=== PATIENT | male | born 1965 | race Caucasian/White ===

== ENCOUNTER 2016-11-06 11:48 | Emergency (ER) | payer BC ==
[~2016-11-06] VITALS: Ht 182.9 cm; Wt 97.0 kg
[~2016-11-06 11:48] MED LIST: DICL-201 PO; OMEP40CA PO
[2016-11-06 11:51] VITALS: TEMP 36.6; Ht 182.9 cm; Wt 97.0 kg
[2016-11-06] MEDS ORDERED: XYLOCAINE 1%/SOD BICARB 20 ML VIAL INFIL ONE (12:00)
[2016-11-06] MEDS ORDERED: IBUP-103 PO (12:02)
--- NOTE | 2016-11-06 12:25 | DIAGNOSTIC IMAGING REPORT ---
LEFT TIBIA/FIBULA 2 VIEWS ROUTINE CLINICAL HISTORY: 51 years-old Male presenting with L tibia pain. TECHNIQUE: Frontal and lateral views of the left lower leg were obtained. COMPARISON: None. FINDINGS: Periosteal reaction suggested along the posterior aspect of the proximal tibial diaphysis that is not apparent on frontal view. No convincing evidence of a stress/fatigue fracture. No acute fracture or malalignment. Knee joint and ankle mortise grossly congruent. Soft tissues grossly normal. IMPRESSION: 1. No acute osseous injury. Electronically signed by: Mat Burleson M.D. 11/06/2016 12:24 PM Dictated Date/Time: 11/06/2016 12:17 PM
[2016-11-06 12:55] VITALS: BP 143/96; PULSE 53; O2SAT 96
--- NOTE | 2016-11-07 18:16 | EMERGENCY ROOM VISIT NOTE ---
ED Visit Note First contact with patient: 11:53 Chief Complaint: Left lower leg laceration. History of Present Illness: Mr. Pederson is a 51-year-old white male who ambulates into the ED complaining of left anterior lower leg laceration. 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 This occurred approximate 30 minutes prior to arrival at the hospital. Prior to coming to the hospital he control bleeding but did not wash the wound. Associated with his wound he reports he has a burning sensation in the area of the wound. He rates his discomfort 2/10. The pain is nonradiating. The pain worsens with palpation. He has not identified any alleviating factors related to the pain. He has not taken any medications for pain prior to arrival at the hospital. He denies any associated symptoms with his pain. Review of Systems: As noted above in history of present illness. Past Medical History: Unspecified ankle surgery. Current Medications: Ibuprofen. Allergies to Medications: Patient denies. Social History: Patient is currently employed; he feels safe in his home environment; he denies tobacco use and admits to social alcohol use. Tetanus Immunization Status: 2013. Physical Examination: Vital Signs: Date Time Temp Pulse Resp B/P (MAP) Pulse Ox O2 Delivery O2 Flow Rate FiO2 11/06/16 12:55 53 16 143/96 96 11/06/16 11:51 36.6 71 16 131/91 95 Room Air GENERAL: 51-year-old male in mild distress due to pain, nontoxic-appearing, afebrile and hemodynamically stable. NEUROLOGICAL: Awake, alert and oriented to person, place and time. Answering questions appropriately and following commands. Normal gait. Good hand eye coordination. No focal motor or sensory deficits. SKIN: Warm, dry and pink. Left Lower Leg: Over the anterior aspect of the mid tibial area patient has a 2.7 cm full-thickness laceration. LEFT LOWER EXTREMITY: No gross bony deformity. No tenderness in the knee or ankle. Moderate tenderness over the spine of the tibia itself bony deformity or crepitus. No active bleeding from his wound. Patient did tell me he thought he the bone was exposed and on evaluating the wound on the east seizes underlying fascia and the bone is not exposed. Patient has full range of motion in flexion and extension of the knee and plantar flexion and dorsiflexion of the ankle. Throughout the lower leg the skin was warm and pink and capillary refill was brisk. He is able to distinguish light sensations through all dermatomes of the lower leg and foot. ED Course: Patient is assessed as noted above. Patient's medication list was reviewed. Left Tibia/Fibula X-Rays: Were read by myself and the radiologist showing no acute fractures or dislocations. No soft tissue foreign bodies. Wound Repair: Complexity: Basic Verbal consent was obtained after the risks and benefits were explained. The skin was prepped with betadine and a sterile field set. Wound edges of the wound was anesthetized with 3.1 ml buffered 1% lidocaine. The wound was explored for foreign bodies and none found. Copious irrigation was performed using sterile saline. With direct pressure the bleeding subsided. Debridement was not performed. The wound edges were approximated using a multilayer closure; the subcuticular layer was closed with 2 Vicryl 6-0 simple interrupted sutures and the cutaneous layer was closed with 5 Ethilon 4-0 sutures. Hemostasis and excellent approximation was achieved. Antibacterial ointment and a sterile dressing applied. No complications and the patient tolerated the procedure well. Patient was educated about tonight's findings and instructed on his treatment plan; he verbalizes understanding and agreement with this plan. Clinical Impression: Laceration of the left lower leg. Disposition: Patient discharged home in stable condition; prior to departure he was reassessed and subjectively he was pain-free. Reported Plan: Comfort measures, wound care, and signs of infection were discussed with the patient. Patient was encouraged to follow-up with PCP or return to the ED for signs of infection and/or suture removal in 10-12 days.
== END 2016-11-06 12:58 | disposition home or self-care (01) ==
LOC: C.EDB 11:49 → C.EDD 12:58
DX: S81.812A Laceration without foreign body, left lower leg, initial encounter (principal); W22.8XXA Striking against or struck by other objects, initial encounter; Y92.007 Garden or yard of unspecified non-institutional (private) residence as the place of occurrence of the external cause

== ENCOUNTER 2018-05-06 05:26 | Observation (INO) ==
--- NOTE | 2018-05-03 14:21 | Anesthesiology Consultation ---
Date of Service May 03, 2018 Assessment & Plan (1) Encounter for pre-operative examination: Chart Review Chart Review: Acceptable Risk for Surgery and Patient NOT seen in Pre Admission Testing Consults Requested none History Surgery Operation Date: 05/06/18 07:30 Proposed Procedures p L4-L5 Laminectomy - Sree Prasad DO Height/Weight Height: 6 ft Weight: 101.984 kg Allergies Allergy/AdvReac Type Severity Reaction Status Date / Time No Known Allergies Allergy Verified 04/29/18 15:43 Medications Home Medications Medication Instructions Recorded Confirmed Last Taken aspirin, buffered 1 - 2 tab PO TID PRN 04/29/18 04/29/18 Unknown omeprazole 40 mg PO DAILY PRN 04/29/18 04/29/18 Unknown Past Medical History Medical History Lumbar spondylosis (Chronic) Lumbar disc herniation (Chronic) Bilateral sacroiliitis (Chronic) Lumbar radiculitis (Chronic) 90% improved status post L5-S1 interlaminar epidural steroid injections Olecranon bursitis (Chronic) Spasm of back muscles (Chronic) Chronic back pain GERD (gastroesophageal reflux disease) Hx of fracture of ankle right - Has had 2 surgeries on ankle Past Surgical History Surgical History History of ankle surgery right Social History Smoking Status: Never smoker Do You Dip or Chew Tobacco: No Hx Alcohol Use: No alcohol intake frequency: holidays/special occasions only Alcohol Intake Frequency Comment: 0 Hx Substance Use: No substance use type: does not use Testing Electrocardiogram Date: 04/30/18 Findings: + NSR @ (64), + RBBB (Incomplete) and + no change from (03/04/10) Other Testing MRI Lumbar Spine 08/05/17: 1. Left paracentral foraminal disc protrusion at L4-5 causing left lateral recess stenosis with impingement of left L5 traversing nerve root with associated moderate left neural foraminal stenosis at this level. This is unchanged when compared to 09/15/16 exam. 2. Moderate left neural foraminal stenosis at L5-S1. Unchanged. Laboratory Results Laboratory Tests 04/30/18 04/30/18 04/30/18 12:40 12:40 12:40 WBC 15.93 H Hgb 16.8 Hct 46.3 Plt Count 243 PT 10.3 INR 1.0 APTT 28.6 Sodium 138 Potassium 3.8 Chloride 108 H Carbon Dioxide 25 BUN 17 Creatinine 1.[address] Prasad's office was notified of increased WBC count.
--- NOTE | 2018-05-05 10:59 | History and Physical Report ---
DATE OF ADMISSION: 05/06/2018 CHIEF COMPLAINT: Back pain, lower extremity, difficulty, paresthesias, instability and a disc herniation at L4-L5. HISTORY OF PRESENT ILLNESS: Mr. Pederson is pleasant individual. He has had ongoing difficulties now for several months, even years in duration, worsening over time. We actually discussed surgery on him a year ago. We went over in detail. He agreed to the procedure. At this point in time, we are settling on a laminectomy lumbar spine L4-L5. PAST MEDICAL HISTORY: Negative for heart disease, diabetes, cancer, hypertension. All negative. PAST SURGICAL HISTORY: Ankle reconstruction. ALLERGIES: Negative. SOCIAL HISTORY: He is . Minimal alcohol, no tobacco. Active lifestyle. REVIEW OF SYSTEMS: Twelve system review is negative for fevers, sweats, chills. Ear, nose and throat negative. No chest pain, palpitations. No asthma, wheezing. No nausea, vomiting. Admits to some numbness and tingling, joint pain, stiffness, weakness and muscle cramping. No diabetes, easy bruisability or immune deficiency. MEDICATIONS: Baclofen, oxycodone. VITAL SIGNS: 6'2, 115 pounds. GENERAL: He is alert, oriented, pleasant gentleman. He has back and lower extremity difficulties. HEENT: Essentially normal. CARDIAC: Normal S1, S2, no S3. LUNGS: Clear to auscultation. No rales, rhonchi, wheezing. ABDOMEN: Soft, nontender, bowel sounds present in all quadrants. Blood pressure 130/80, pulse 80. He has 5/5 motor strength, good sensation and decreased range of motion, flexion and extension of the spine. He has no gross neurological deficit. The skin is intact. There is no adenopathy. PLAN: Includes a lumbar laminectomy at L4-L5 lumbar spine.
[2018-05-06] MEDS ORDERED: CEFAZOLIN 3000MG 65 ML IV SCH (06:00)
[2018-05-06] MEDS ORDERED: LR 15ML/HR IV SCH (06:00)
[2018-05-06] MEDS ORDERED: CEFAZOLIN 2000MG 2,000 MG/15 ML SYR IV SCH (06:00)
[2018-05-06] MEDS ORDERED: SODIUM CHLORIDE 0.9% 1,000 ML IV SCH (06:00)
[2018-05-06] MEDS ORDERED: ONDANSETRON INJ 2 MG/ML 2 ML VIAL IV PRN ×2 (06:49→10:07)
[2018-05-06] MEDS ORDERED: MoRPHine SULFATE 10 MG/ML CARP/VIAL IV PRN (06:49)
[2018-05-06] MEDS ORDERED: ePHEDrine sulfate 50 MG/ML AMP IV PRN (06:49)
[2018-05-06] MEDS ORDERED: ATROPINE SULFATE 0.1 MG/ML 10ML SYR IV PRN (06:49)
[2018-05-06] MEDS ORDERED: VANCOMYCIN HCL 1000MG/20ML VIAL ONE (06:53)
[2018-05-06] MEDS ORDERED: BACITRACIN INJ 50,000 UNIT VIAL ONE (06:53)
[2018-05-06] MEDS ORDERED: THROMBIN FOR SOLN 20000 UNIT KIT ONE (06:53)
[2018-05-06] MEDS ORDERED: GELATIN SPONGE SZ 100 ONE (06:53)
[2018-05-06] MEDS ORDERED: BUPIVACAINE/EPINEPHRINE 0.5% MPF 1:200,000 30 ML VIAL ONE (06:56)
[2018-05-06] MEDS ORDERED: ROCURONIUM BROMIDE 10 MG/ML 5 ML VIAL ONE (07:04)
[2018-05-06] MEDS ORDERED: GLYCOPYRROLATE 0.2 MG/ML VIAL ONE (07:04)
[2018-05-06] MEDS ORDERED: LIDOCAINE HCL 2% 2 ML VIAL/AMP(20MG/ML) INFIL ONE (07:04)
[2018-05-06] MEDS ORDERED: NEOSTIGMINE METHYLSULFATE 5 MG/5 ML SYR ONE (07:04)
[2018-05-06] MEDS ORDERED: ONDANSETRON INJ 2 MG/ML 2 ML VIAL ONE (07:04)
[2018-05-06] MEDS ORDERED: DEXAMETHASONE SOD INJ 4 MG/ML VIAL ONE (07:04)
[2018-05-06] MEDS ORDERED: PROPOFOL IV EMULSION 10 MG/ML 20 ML VIAL IV ONE (07:04)
[2018-05-06] MEDS ORDERED: MIDAZOLAM HCL 1 MG/ML 2ML VIAL ONE (07:05)
[2018-05-06] MEDS ORDERED: fentaNYL citrate 100 MCG/2 ML VIAL ONE (07:05)
--- NOTE | 2018-05-06 07:19 | History & Physical Bridge Note ---
Date of Service May 06, 2018 History & Physical Bridge Note I have examined the patient, reviewed the History & Physical and in the interval since the performance of the History & Physical I have noted the following changes of clinical significance: no changes noted
--- NOTE | 2018-05-06 08:36 | Post Operative Brief Note ---
Immediate Post Op Note v1 Date of Surgery May 06, 2018 Pre & Post Diagnosis Operation Date: 05/06/18 07:30 Pre-Op Diagnosis: Disc Herniation L4-L5; Spinal Stenosis L4-L5; Degenerative Disc Post-Op Diagnosis: Disc Herniation L4-L5; Spinal Stenosis L4-L5; Degenerative Disc Procedure Operation Date: 05/06/18 07:30 Actual Procedures p L4-L5 Laminectomy(Not Applicable) - Sree Prasad DO Surgeon Sree Prasad DO Sales Planning Analyst trung Estimated Blood Loss 50 Findings Consistent with Post-Op Diagnosis Drains Hemovac Drain Complications none
--- NOTE | 2018-05-06 08:40 | Fluoroscopy Report ---
LUMBAR SPINE, INTRAOPERATIVE FLUOROSCOPY HISTORY: L4-5 laminectomy. FLUOROSCOPY TIME: 3 seconds. FINDINGS: Intraoperative fluoroscopy was provided for the lumbar spine. Single fluoroscopic spot imag e of the lower lumbar spine demonstrates surgical instruments posterior to the L4-L5 level. IMPRESSION: Fluoroscopy provided for a L4-L5 laminectomy.. Electronically signed by: Jose Harley M.D. 05/06/2018 8:38 AM
[2018-05-06] MEDS: fentaNYL citrate 100 MCG/2 ML VIAL IV PRN ×3 (09:11→09:21)
[2018-05-06] MEDS ORDERED: HYDROmorphone INJ 1 MG/ML SYRINGE IV PRN ×2 (10:07)
[2018-05-06] MEDS ORDERED: OXYCODONE HCL IR 5 MG TAB (IMMEDIATE RELEASE) PO PRN ×2 (10:07)
[2018-05-06] MEDS ORDERED: MAGNESIUM HYDROXIDE SUSP 30 ML UDC PO PRN (10:07)
--- NOTE | 2018-05-06 10:10 | Anesthesiology Progress Note ---
Date of Service May 06, 2018 Anesthesia Post Procedure Vital Signs Vital Signs: Temp Pulse Pulse Resp BP Pulse Ox 05/06/18 09:40 98.1 F 54 L 18 104/63 94 05/06/18 09:30 52 L 16 116/51 L 94 05/06/18 09:20 53 L 16 148/88 H 100 05/06/18 09:10 58 L 20 137/88 100 05/06/18 09:00 57 L 20 139/93 100 05/06/18 08:50 62 20 141/93 H 100 05/06/18 08:43 98.6 F 72 20 155/95 H 100 05/06/18 06:11 98.1 F 50 L 20 122/91 97 Pain Intensity Lower Back: Pain Intensity: 4 Notes Mental Status: alert / awake / arousable and participated in evaluation Patient Amnestic to Procedure: Yes Nausea / Vomiting: adequately controlled Pain: adequately controlled Airway Patency, RR, SpO2: stable & adequate BP & HR: stable & adequate Hydration State: stable & adequate Anesthetic Complications: no major complications apparent and Pt Satisfied with anesthetic care
--- NOTE | 2018-05-06 10:15 | Operative Report ---
DATE OF OPERATION: 05/06/2018 PREOPERATIVE DIAGNOSIS: Stenosis and mild instability, L4-L5. POSTOPERATIVE DIAGNOSIS: Stenosis and mild instability, L4-L5. PROCEDURES: Include laminectomy bilaterally, L4-L5, foraminotomy, partial facetectomy, lumbar spine. SURGEON: Sree Prasad DO. MEAT APPRENTICE: José Castle PA-C. COMPLICATIONS: Zero. BLOOD LOSS: 50 mL. DESCRIPTION OF PROCEDURE: Patient was taken to the operating room. General intubated anesthetic provided to the patient. Placed prone, scrubbed, prepped and draped sterile. We made a skin incision, fascial incision. We came down on the L3-L4 interspace, went 1 inch below to the L4-L5 interspace. I did a formal decompression laminectomy, foraminotomy, took off synovitis. We decompressed each nerve root. The nerves of L4 and L5 were absolutely free of any type of pressure. We irrigated and closed in layers over Hemovac drain and vancomycin powder. Patient returned to PACU improved and stable. There were no apparent intraoperative complications. I attest to the content of the Intraoperative Record and any orders documented therein. Any exception s are noted below.
[2018-05-06] MEDS ORDERED: PANTOprazole 40 MG TAB PO PRN (10:30)
[2018-05-06] MEDS: CEFAZOLIN 2000MG 2,000 MG/15 ML SYR IV SCH ×2 (10:43→18:05)
[2018-05-06] MEDS: DOCUSATE SODIUM 100 MG CAP PO SCH ×2 (10:43→19:53)
[2018-05-06] MEDS: dexAMETHasone 6 MG in SYRINGE 0 ML IV SCH ×2 (10:43→18:05)
[2018-05-06] MEDS: ACETAMINOPHEN 1,000 MG/100 ML VIAL IV SCH ×2 (10:44→17:59)
[2018-05-06] MEDS ORDERED: Nursing to Pharmacy Communication ONE (14:29)
[2018-05-06] MEDS: SODIUM CHLORIDE 0.9% 1000ML 1,000 ML IV SCH (17:29)
[2018-05-07] MEDS: dexAMETHasone 6 MG in SYRINGE 0 ML IV SCH (02:26)
[2018-05-07] MEDS: CEFAZOLIN 2000MG 2,000 MG/15 ML SYR IV SCH (02:26)
[2018-05-07] MEDS: ACETAMINOPHEN 1,000 MG/100 ML VIAL IV SCH (02:26)
[2018-05-07] MEDS: SODIUM CHLORIDE 0.9% 1000ML 1,000 ML IV SCH (04:57)
--- NOTE | 2018-05-07 07:45 | Anesthesiology Progress Note ---
Date of Service May 07, 2018 Anesthesia Post Procedure Vital Signs Vital Signs: Temp Pulse Pulse Pulse Resp BP BP 05/07/18 06:46 36.5 C 48 L 19 127/80 05/07/18 03:20 36.5 C 51 L 16 113/74 05/06/18 23:35 36.8 C 53 L 16 133/90 05/06/18 19:15 37.3 C 51 L 18 143/84 H 05/06/18 13:43 52 L 132/86 05/06/18 13:10 56 L 64 158/94 H 136/104 H 05/06/18 13:05 61 18 178/105 H 05/06/18 12:06 61 18 144/92 H 05/06/18 11:04 72 18 143/82 H 05/06/18 10:30 62 18 144/86 H 05/06/18 10:00 36.5 C 46 L 16 118/78 05/06/18 09:40 36.7 C 54 L 18 104/63 05/06/18 09:30 52 L 16 116/51 L 05/06/18 09:20 53 L 16 148/88 H 05/06/18 09:10 58 L 20 137/88 05/06/18 09:00 57 L 20 139/93 05/06/18 08:50 62 20 141/93 H 05/06/18 08:43 37 C 72 20 155/95 H Pulse Ox 05/07/18 06:46 96 05/07/18 03:20 94 05/06/18 23:35 96 05/06/18 19:15 95 05/06/18 13:43 05/06/18 13:10 05/06/18 13:05 96 05/06/18 12:06 94 05/06/18 11:04 95 05/06/18 10:30 94 05/06/18 10:00 93 05/06/18 09:40 94 05/06/18 09:30 94 05/06/18 09:20 100 05/06/18 09:10 100 05/06/18 09:00 100 05/06/18 08:50 100 05/06/18 08:43 100 Pain Intensity Lower Back: Pain Intensity: 2 Notes Mental Status: alert / awake / arousable Patient Amnestic to Procedure: Yes Nausea / Vomiting: adequately controlled Pain: adequately controlled Airway Patency, RR, SpO2: stable & adequate BP & HR: stable & adequate Hydration State: stable & adequate Anesthetic Complications: no major complications apparent and Pt Satisfied with anesthetic care
[2018-05-07] MEDS: DOCUSATE SODIUM 100 MG CAP PO SCH (08:34)
--- NOTE | 2018-05-07 11:40 | Discharge Summary ---
HOSPITAL COURSE: He is alert, oriented, minimal complaints of pain, up, taking p.o. Vital signs stable. ASSESSMENT: Here uneventful hospital course after a laminectomy of lumbar spine. PLAN: Instructions, precautions, education provided. The patient will be discharged home later today in improved stable condition. Followup appointment also provided.
[2018-05-08] MEDS ORDERED: BISACODYL 5 MG TABEC PO PRN (06:00)
== END 2018-05-07 09:55 | disposition home or self-care (01) ==
LOC: 3E 05:26 → ASU 05:26

== ENCOUNTER 2018-07-29 03:06 | Observation (INO) ==
[2018-07-29] MEDS ORDERED: MoRPHine SULFATE 4 MG/ML 1 ML CARP\\VIAL IV STA (03:11)
[2018-07-29] MEDS ORDERED: ONDANSETRON INJ 2 MG/ML 2 ML VIAL IV STA (03:11)
--- NOTE | 2018-07-29 03:24 | Emergency Department Note ---
History of Present Illness General Chief complaint: Chest Pain Stated complaint: SEVERE CHEST PAIN STRAIGHT THROUGH TO BACK Time Seen by Provider: 07/29/18 03:11 History of Present Illness Maximum Pain Intensity: 8 This 52-year-old presents to the ER complaining of severe right-sided epigastric pain since 10 PM. Location: Epigastric right-sided chest pain Quality: Painful Severity: Moderate Duration: Started at 10 PM Timing: Started last night at 10 PM Context: Pain persisted and patient came here Modifying factors: better with nothing; worse with palpation Patient denies dyspnea, nausea, vomiting, diarrhea, leg pain or swelling, fever, flulike illness, injury to the area. Patient states he is healthy with no active medical problems. No family history of heart disease. He does not smoke. No drug use. Symptoms were not worsened with activity. Patient states he had a similar episode a few weeks ago. Patient had white vegetable pizza tonight. Home Medications Home Medications Medication Instructions Recorded Confirmed Type omeprazole 40 mg PO DAILY PRN 04/29/18 07/29/18 History hydrocodone-acetaminophen [[place]] 1 - 2 tab PO Q4H #15 tab 07/29/18 Rx naproxen sodium 220 - 440 mg PO DIRECTED PRN 07/29/18 07/29/18 History Allergies Allergy/AdvReac Type Severity Reaction Status Date / Time No Known Allergies Allergy Verified 07/29/18 03:52 Past Med/Surg History Medical History Lumbar spondylosis (Chronic) Lumbar disc herniation (Chronic) Bilateral sacroiliitis (Chronic) Lumbar radiculitis (Chronic) 90% improved status post L5-S1 interlaminar epidural steroid injections Olecranon bursitis (Chronic) Spasm of back muscles (Chronic) Chronic back pain GERD (gastroesophageal reflux disease) Hx of fracture of ankle right - Has had 2 surgeries on ankle Surgical History History of back surgery Grade 1 view Mac 3 blade History of ankle surgery right Social History Preferred Language: Pashto 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 Hand Required: No Beliefs That Will Affect Care: None marital status: Current Living Situation: Spouse Other Information That Helps Us Care for You: No Feels Safe at Home: Yes Safety Concerns: Feels Safe At This Time Smoking Status: Never smoker Hx Alcohol Use: No Hx Substance Use: No Review of Systems All systems reviewed & are unremarkable except as noted in HPI & below Physical Exam Vital Signs Vital Signs - 24 hr 07/29/18 03:13 07/29/18 03:17 07/29/18 03:21 Temperature 36.6 C Temperature Source Oral Sepsis Recent Fever Within 48 Hours No Sepsis Action Taken by Nursing No Action Required Pulse Rate 62 54 L Pulse Rate [Apical] Pulse Rate [Left Finger] Pulse Rate from SpO2 Sensor Pulse Rhythm Regular Pulse Rhythm [Apical] Pulse Rhythm [Left Finger] Pulse Strength Normal Pulse Strength [Left Finger] Respiratory Rate 18 25 H Respiratory Effort / Characteristics Non-Labored Respiratory Depth Normal Respiratory Pattern Blood Pressure 164/109 H 158/102 H Blood Pressure [Right Arm] Blood Pressure Mean 127 120 Blood Pressure Mean [Right Arm] Blood Pressure Position Lying Blood Pressure Position [Right Arm] Pulse Oximetry 99 99 99 Oxygen Delivery Method Room Air Oxygen Flow Rate 07/29/18 03:25 07/29/18 04:13 07/29/18 04:17 Temperature Temperature Source Sepsis Recent Fever Within 48 Hours Sepsis Action Taken by Nursing Pulse Rate 81 Pulse Rate [Apical] Pulse Rate [Left Finger] Pulse Rate from SpO2 Sensor Pulse Rhythm Pulse Rhythm [Apical] Pulse Rhythm [Left Finger] Pulse Strength Pulse Strength [Left Finger] Respiratory Rate 21 Respiratory Effort / Characteristics Respiratory Depth Respiratory Pattern Blood Pressure 108/79 Blood Pressure [Right Arm] Blood Pressure Mean 88 Blood Pressure Mean [Right Arm] Blood Pressure Position Blood Pressure Position [Right Arm] Pulse Oximetry 96 Oxygen Delivery Method Room Air Room Air Oxygen Flow Rate 07/29/18 04:31 07/29/18 05:01 07/29/18 05:31 Temperature Temperature Source Sepsis Recent Fever Within 48 Hours Sepsis Action Taken by Nursing Pulse Rate 71 73 71 Pulse Rate [Apical] Pulse Rate [Left Finger] Pulse Rate from SpO2 Sensor 70 73 69 Pulse Rhythm Pulse Rhythm [Apical] Pulse Rhythm [Left Finger] Pulse Strength Pulse Strength [Left Finger] Respiratory Rate 19 19 16 Respiratory Effort / Characteristics Respiratory Depth Respiratory Pattern Blood Pressure 145/98 H 162/99 H 148/99 H Blood Pressure [Right Arm] Blood Pressure Mean 113 120 115 Blood Pressure Mean [Right Arm] Blood Pressure Position Blood Pressure Position [Right Arm] Pulse Oximetry 92 94 97 Oxygen Delivery Method Oxygen Flow Rate 07/29/18 05:32 07/29/18 06:01 07/29/18 07:01 Temperature Temperature Source Sepsis Recent Fever Within 48 Hours Sepsis Action Taken by Nursing Pulse Rate 66 59 L 74 Pulse Rate [Apical] Pulse Rate [Left Finger] Pulse Rate from SpO2 Sensor 67 61 71 Pulse Rhythm Pulse Rhythm [Apical] Pulse Rhythm [Left Finger] Pulse Strength Pulse Strength [Left Finger] Respiratory Rate 13 17 16 Respiratory Effort / Characteristics Respiratory Depth Respiratory Pattern Blood Pressure 135/89 145/95 H Blood Pressure [Right Arm] Blood Pressure Mean 104 111 Blood Pressure Mean [Right Arm] Blood Pressure Position Blood Pressure Position [Right Arm] Pulse Oximetry 96 93 94 Oxygen Delivery Method Oxygen Flow Rate 07/29/18 07:40 07/29/18 11:00 07/29/18 12:51 Temperature 36.6 C 36.5 C 36.3 C L Temperature Source Oral Oral Temporal Artery Scan Sepsis Recent Fever Within 48 Hours Sepsis Action Taken by Nursing Pulse Rate Pulse Rate [Apical] 75 Pulse Rate [Left Finger] 66 59 L Pulse Rate from SpO2 Sensor Pulse Rhythm Pulse Rhythm [Apical] Regular Pulse Rhythm [Left Finger] Regular Regular Pulse Strength Pulse Strength [Left Finger] Normal Normal Respiratory Rate 18 18 20 Respiratory Effort / Characteristics Non-Labored Spontaneous Non-Labored Spontaneous Non-Labored Spontaneous Respiratory Depth Normal Normal Normal Respiratory Pattern Regular Regular Regular Blood Pressure Blood Pressure [Right Arm] 126/86 137/104 H 173/117 H Blood Pressure Mean Blood Pressure Mean [Right Arm] 99 115 135 Blood Pressure Position Blood Pressure Position [Right Arm] Sitting Sitting Lying Pulse Oximetry 96 99 95 Oxygen Delivery Method Room Air Room Air Oxymask Oxygen Flow Rate 10 07/29/18 13:00 07/29/18 13:10 07/29/18 13:20 Temperature Temperature Source Sepsis Recent Fever Within 48 Hours Sepsis Action Taken by Nursing Pulse Rate Pulse Rate [Apical] 73 64 59 L Pulse Rate [Left Finger] Pulse Rate from SpO2 Sensor Pulse Rhythm Pulse Rhythm [Apical] Regular Regular Regular Pulse Rhythm [Left Finger] Pulse Strength Pulse Strength [Left Finger] Respiratory Rate 18 26 H 18 Respiratory Effort / Characteristics Non-Labored Spontaneous Non-Labored Spontaneous Non-Labored Spontaneous Respiratory Depth Normal Normal Normal Respiratory Pattern Regular Regular Regular Blood Pressure Blood Pressure [Right Arm] 156/114 H 156/113 H 140/98 Blood Pressure Mean Blood Pressure Mean [Right Arm] 128 127 112 Blood Pressure Position Blood Pressure Position [Right Arm] Lying Lying Lying Pulse Oximetry 91 90 92 Oxygen Delivery Method Oxymask Oxymask Nasal Cannula Oxygen Flow Rate 10 10 4 07/29/18 13:30 07/29/18 13:42 07/29/18 14:00 Temperature 36.6 C 36.6 C 36.7 C Temperature Source Temporal Artery Scan Temporal Artery Scan Oral Sepsis Recent Fever Within 48 Hours Sepsis Action Taken by Nursing Pulse Rate Pulse Rate [Apical] 60 58 L Pulse Rate [Left Finger] 65 Pulse Rate from SpO2 Sensor Pulse Rhythm Pulse Rhythm [Apical] Regular Regular Pulse Rhythm [Left Finger] Regular Pulse Strength Pulse Strength [Left Finger] Normal Respiratory Rate 17 17 18 Respiratory Effort / Characteristics Non-Labored Spontaneous Non-Labored Spontaneous Non-Labored Spontaneous Respiratory Depth Normal Normal Normal Respiratory Pattern Regular Regular Regular Blood Pressure Blood Pressure [Right Arm] 133/97 138/97 156/101 H Blood Pressure Mean Blood Pressure Mean [Right Arm] 109 110 119 Blood Pressure Position Blood Pressure Position [Right Arm] Lying Lying Lying Pulse Oximetry 93 94 93 Oxygen Delivery Method Nasal Cannula Nasal Cannula Nasal Cannula Oxygen Flow Rate 4 4 3 07/29/18 14:32 07/29/18 15:00 07/29/18 15:20 Temperature 36.6 C Temperature Source Axillary Sepsis Recent Fever Within 48 Hours Sepsis Action Taken by Nursing Pulse Rate Pulse Rate [Apical] Pulse Rate [Left Finger] 70 84 Pulse Rate from SpO2 Sensor Pulse Rhythm Pulse Rhythm [Apical] Pulse Rhythm [Left Finger] Pulse Strength Pulse Strength [Left Finger] Respiratory Rate 18 18 Respiratory Effort / Characteristics Respiratory Depth Respiratory Pattern Blood Pressure Blood Pressure [Right Arm] 163/103 H 163/108 H 151/101 H Blood Pressure Mean Blood Pressure Mean [Right Arm] 123 126 117 Blood Pressure Position Blood Pressure Position [Right Arm] Lying Lying Lying Pulse Oximetry 93 93 Oxygen Delivery Method Room Air Room Air Oxygen Flow Rate 07/29/18 16:20 07/29/18 17:14 Temperature 36.6 C 36.7 C Temperature Source Oral Oral Sepsis Recent Fever Within 48 Hours Sepsis Action Taken by Nursing Pulse Rate Pulse Rate [Apical] Pulse Rate [Left Finger] 91 H 80 Pulse Rate from SpO2 Sensor Pulse Rhythm Pulse Rhythm [Apical] Pulse Rhythm [Left Finger] Pulse Strength Pulse Strength [Left Finger] Respiratory Rate 18 16 Respiratory Effort / Characteristics Respiratory Depth Respiratory Pattern Blood Pressure Blood Pressure [Right Arm] 154/98 H 138/97 Blood Pressure Mean Blood Pressure Mean [Right Arm] 116 110 Blood Pressure Position Blood Pressure Position [Right Arm] Sitting Sitting Pulse Oximetry 91 93 Oxygen Delivery Method Room Air Room Air Oxygen Flow Rate VITALS: Vitals are noted on the nurse's note and reviewed by myself. Vital signs stable. GENERAL: Pleasant male who appears in pain, in no acute distress, nondiaphoretic, well-developed well-nourished. SKIN: The skin was without rashes, erythema, edema, or bruising. There is no tenting of the skin. Capillary reflex less than 2 seconds. HEAD: Normocephalic atraumatic. EARS: External auditory canals clear, tympanic membranes pearly saunders without erythema or effusion bilaterally. EYES: Pupils equal round and reactive to light and accommodation. Conjunctivae without injection, sclerae without icterus. Extraocular movements intact. NOSE: Patent, turbinates without inflammation or discharge. MOUTH: Mucous membranes moist. Pharynx without erythema or exudate. Uvula midline. Airway patent. Tongue does not deviate. NECK: Supple without nuchal rigidity. No lymphadenopathy. No thyromegaly. Cervical spine is nontender. No JVD. HEART: Regular rate and rhythm without murmurs gallops or rubs. LUNGS: Clear to auscultation bilaterally without wheezes, rales or rhonchi. No retractions or accessory muscle use. ABDOMEN: Positive bowel sounds x 4. Normal tympanic percussion. Soft, tender to palpation right upper quadrant, without masses or organomegaly. Frazier sign positive. No guarding or rebound tenderness. No CVA tenderness MUSCULOSKELETAL: No muscle atrophy, erythema, or edema noted. NEURO: Patient was alert and oriented to person place and time. Normal sensation to light and sharp touch. No focal neurological deficits. Course Administered Medications Hydromorphone HCl (Dilaudid) 1 mg IV Q2H PRN PRN Reason: Pain Stop: 08/12/18 14:17 Last Admin: 07/29/18 15:10 Dose: 1 mg Documented by: [id number] Ceftriaxone Sodium 1,000 mg/ (Dextrose) 60 mls @ 100 mls/hr IV DAILY@0900 [facility] Stop: 08/08/18 09:29 Last Infusion: 07/29/18 10:43 Dose: 0 mls/hr Documented by: [id number] Admin: 07/29/18 10:00 Dose: 100 mls/hr Documented by: [id number] Potassium Chloride/Sodium Chloride (Normal Saline W/20 Meq Kcl) 20 meq in 1,000 mls @ 100 mls/hr IV .Q10H KE[facility] Stop: 08/28/18 09:29 Last Admin: 07/29/18 10:00 Dose: 100 mls/hr Documented by: [id number] Ketorolac Tromethamine (Toradol) 30 mg IV Q6H PRN PRN Reason: Pain Stop: 08/03/18 19:59 Last Admin: 07/29/18 21:07 Dose: 30 mg Documented by: [id number] Discontinued Medications Al Hydrox/Mg Hydrox/Simethicone () 1 dose PO ONE ONE Stop: 07/29/18 03:44 Last Admin: 07/29/18 04:16 Dose: 1 dose Documented by: [id number] Bupivacaine HCl (Marcaine 0.5% Mpf) Confirm Administered Dose 30 ml .ROUTE .STK-MED ONE Stop: 07/29/18 11:17 Last Admin: 07/29/18 12:38 Dose: 20 ml Documented by: [id number] Fentanyl Citrate (Fentanyl Citrate) 25 mcg IV Q5M PRN PRN Reason: PACU Use Only-Pain Stop: 07/29/18 15:58 Last Admin: 07/29/18 13:21 Dose: 25 mcg Documented by: [id number] Admin: 07/29/18 13:16 Dose: 25 mcg Documented by: [id number] Admin: 07/29/18 13:11 Dose: 25 mcg Documented by: [id number] Admin: 07/29/18 13:06 Dose: 25 mcg Documented by: [id number] Hydromorphone HCl (Dilaudid) 1 mg IV Q15M PRN PRN Reason: Pain Stop: 08/12/18 04:18 Last Admin: 07/29/18 05:10 Dose: 1 mg Documented by: [id number] Admin: 07/29/18 04:23 Dose: 1 mg Documented by: [id number] Hydromorphone HCl (Dilaudid) Confirm Administered Dose 1 mg .ROUTE .STK-MED ONE Stop: 07/29/18 04:20 Last Admin: 07/29/18 04:23 Dose: Not Given Documented by: [id number] Pantoprazole Sodium 40 mg/ (Syringe) 10 mls @ 5 mls/min IV DAILY@1100 [facility] Stop: 08/28/18 10:59 Last Admin: 07/29/18 10:00 Dose: 5 mls/min Documented by: [id number] Iothalamate Meglumine ([place] 60%) Confirm Administered Dose 50 ml .ROUTE .STK- MED ONE Stop: 07/29/18 11:17 Last Admin: 07/29/18 12:37 Dose: Not Given Documented by: [id number] Ketorolac Tromethamine (Toradol) 30 mg IV NOW ONE Stop: 07/29/18 14:19 Last Admin: 07/29/18 15:05 Dose: 30 mg Documented by: [id number] Ketorolac Tromethamine (Toradol) 30 mg IV NOW ONE Stop: 07/29/18 14:54 Last Admin: 07/29/18 16:27 Dose: Not Given Documented by: [id number] Labetalol HCl (Normodyne) 5 mg IV Q5M PRN PRN Reason: PACU Use-SBP>160 or DBP>100 Stop: 07/29/18 15:58 Last Admin: 07/29/18 13:11 Dose: 5 mg Documented by: [id number] Cosigned by: [id number] Morphine Sulfate (Morphine Sulfate) 4 mg IV NOW STA Stop: 07/29/18 03:12 Last Admin: 07/29/18 03:27 Dose: 4 mg Documented by: [id number] Ondansetron HCl (Zofran) 4 mg IV NOW STA Stop: 07/29/18 03:12 Last Admin: 07/29/18 03:25 Dose: 4 mg Documented by: [id number] Medical Decision Making Medical Records Attestation: I reviewed the patient's medical records. Home Medications Current Medication List: was personally reviewed by me Laboratory Data Attestation: I reviewed the patient's lab results. Result diagrams: 07/29/18 03:22 07/29/18 03:22 Lab Results 07/29/18 07/29/18 07/29/18 Range/Units 03:22 03:22 03:22 WBC 12.91 H (4.8-10.8) K/uL RBC 5.39 (4.7-6.1) M/uL Hgb 17.5 (14.0-18.0) g/dL Hct 48.7 (42-52) % MCV 90.4 (80-100) fL MCH 32.5 (25-34) pg MCHC 35.9 (32-36) g/dL RDW Std Deviation 42.5 (36.4-46.3) fL RDW Coeff of Kaylynn 13.1 (11.5-14.5) % Plt Count 247 (130-400) K/uL MPV 9.9 (7.4-10.4) fL Immature Gran % (Auto) 0.3 % Neut % (Auto) 70.5 % Lymph % (Auto) 19.2 % [place] % (Auto) 8.4 % Eos % (Auto) 1.1 % Baso % (Auto) 0.5 % Immature Gran # (Auto) 0.04 H (0.00-0.02) K/uL Neut # (Auto) 9.11 H (1.4-6.5) K/uL Lymph # (Auto) 2.48 (1.2-3.4) K/uL [place] # (Auto) 1.08 H (0.11-0.59) K/uL Eos # (Auto) 0.14 (0-0.5) K/uL Baso # (Auto) 0.06 (0-0.2) K/uL Sodium 141 (136-145) mmol/L Potassium 3.7 (3.5-5.1) mmol/L Chloride 107 (98-107) mmol/L Carbon Dioxide 27 (21-32) mmol/L Anion Gap 7.0 (3-11) BUN 24 H (7-18) mg/dl Creatinine 1.11 (0.6-1.4) mg/dl Est Cr Clr Drug Dosing Not Reportable Est GFR ( Amer) 86.8 Est GFR (Non-Af Amer) 74.9 BUN/Creatinine Ratio 21.3 H (10-20) Glucose 97 (70-99) mg/dl Calcium 9.5 (8.5-10.1) mg/dl Total Bilirubin 0.7 (0.2-1) mg/dl AST 22 (15-37) U/L ALT 48 (12-78) U/L Alkaline Phosphatase 115 (45-117) U/L POC Troponin I < 0.03 (0-0.045) ng/ml Troponin I < 0.015 (0-0.045) ng/ml Total Protein 7.7 (6.4-8.2) gm/dl Albumin 4.2 (3.4-5.0) gm/dl Globulin 3.5 (2.5-4.0) gm/dl Albumin/Globulin Ratio 1.2 (0.9-2) Lipase 190 (73-393) U/L Imaging Data Attestation: I personally reviewed and interpreted this imaging study as follows: MDM Narrative Prior records/ancillary studies reviewed. Triage Nursing notes reviewed. Additional history obtained from family. The patient's history was concerning for epigastric right upper quadrant chest pain. Differential diagnosis: Etiologies such as cardiac ischemia, biliary, aortic dissection, pulmonary embolism, pneumonia, pneumothorax, musculoskeletal, infections, pericarditis, myocarditis, esophageal rupture, gastrointestinal, as well as others were entertained. Physical examination: As above. ER treatment provided: Morphine and Zofran IV On reassessment the patient felt better. Diagnostic interpretation by me: The electrocardiogram was normal sinus, incomplete right bundle branch block, no acute ST-T changes, rate of 61. Impression normal sinus rhythm with incomplete right bundle branch block and read by myself. EKG compared to prior EKG with no acute changes noted. I think arrhythmia is unlikely. EKG shows normal sinus rhythm with no interval abnormalities such as QT prolongation or WPW. There are no findings to suggest Brugada syndrome. Cardiac monitoring in the emergency department reveals no tachycardic or bradycardic dysrhythmia. Hypertrophic cardiomyopathy was considered but there are no clear historical elements pointing toward this. EKG is not suggestive. The QRS voltage is not extremely large and there are no sugge stive Q waves. The labs revealed leukocytosis. Negative troponin Imaging studies: Chest x-ray with no acute consolidation, pneumothorax or free air, elevated right hemidiaphragm per my interpretation US RUQ: Echogenic liver suggesting steatosis. Hypoechoic region in the right hepatic lobe, nonspecific, possibly focal fatty sparing. No gallbladder wall thickening or pericholecystic fluid. Gallbladder sludge. No stones visualized. No biliary dilatation. CBD measures 3.9 mm. Right kidney cysts, largest 4.3 cm in the upper pole. No hydronephrosis. Radiologist: Butch David M.D. HEART SCORE: Hx: high/mod/low suspicion: 0 ECG: ST depression/nonspecific changes/normal: 0 Age: Greater than 65/45-64/less than 45: 1 Risk factors: (Hypertension, hyperlipidemia, diabetes, coronary disease, tobacco use, cocaine use): 0 Troponin: Greater than 2 times normal limits/1-2 times normal limits/normal: 0 Total: 1 Consultation: A consultation was placed with the surgeon, Dr. Bird and recommends medical admission and HIDA scan. He will evaluate the patient later today in consultation. Hospitalist was consultedt. The case was discussed and diagnostics were reviewed. The patient was evaluated in the ER for further treatment. Exam and history seem consistent with biliary colic. Patient still moderate amount of pain. Surgery medicine was consulted. Patient will be evaluated for possible admission. Heart score is low. Patient had 2 normal unchanged EKGs. Negative troponin. Exam and history seem most consistent with biliary colic in etiology. By the evaluation outlined above emergent etiologies such as cardiac ischemia, aortic dissection, pulmonary embolism, pneumonia, pneumothorax, pericarditis, myocarditis, gastrointestinal, as well as others were deemed relatively unlikely. The pt informed about the findings as listed above. All questions were answered and pleased with the treatment. Case reviewed with my attending The chart was completed utilizing [employer] Speech voice recognition software. Grammatical errors, random word insertions, pronoun errors, and incomplete sentences are an occassional consequence of this system due to software limitat ions, ambient noise, and hardware issues. Any formal questions or concerns about the content, text, or information contained within the body of this dictation should be directly addressed to the physician triage assistant for clarification. Impression & Plan Biliary colic, Chest pain, Intractable abdominal pain Discharge Plan Visit Data *Final* Discharge Date/Time: 07/29/18 07:28 Chief Complaint: Chest Pain Stated Complaint: SEVERE CHEST PAIN STRAIGHT THROUGH TO BACK ED Provider: Danni Carty ED Midlevel Provider: Anita Badillo Discharge Problem: Biliary colic, Chest pain, Intractable abdominal pain Patient Disposition: Admitted As Inpatient Condition: Good Discharge Instructions Interventions: ED Discharge Assessment Last Done: 07/29/18 07:28
[2018-07-29 03:33] LABS: Basophils # (auto) 0.06 K/uL (0-0.2); Basophils % (auto) 0.5 %; Eosinophils # (auto) 0.14 K/uL (0-0.5); Eosinophils % (auto) 1.1 %; Hematocrit (blood only) 48.7 % (42-52); Hemoglobin 17.5 g/dL (14.0-18.0); Immature Granulocytes # (auto) 0.04 K/uL (0.00-0.02); Immature Granulocytes % (auto) 0.3 %; Lymphocytes # (auto) 2.48 K/uL (1.2-3.4); Lymphocytes % (auto) 19.2 %; Mean Corpuscular Hgb Conc 35.9 g/dL (32-36); Mean Corpuscular Volume 90.4 fL (80-100); Mean Platelet Volume 9.9 fL (7.4-10.4); Monocytes # (auto) 1.08 K/uL (0.11-0.59); Monocytes % (auto) 8.4 %; Neutrophils # (auto) 9.11 K/uL (1.4-6.5); Neutrophils % (auto) 70.5 %; Platelet Count 247 K/uL (130-400); RDW Coefficient of Variation 13.1 % (11.5-14.5); RDW Standard Deviation 42.5 fL (36.4-46.3); Red Blood Count 5.39 M/uL (4.7-6.1); White Blood Count 12.91 K/uL (4.8-10.8)
[2018-07-29] MEDS ORDERED: GI COCKTAIL ED USE PO ONE (03:43)
[2018-07-29 03:50] LABS: Alanine Aminotransferase 48 U/L (12-78); Albumin Level 4.2 gm/dl (3.4-5.0); Aspartate Aminotransferase 22 U/L (15-37); BUN Creatinine Ratio 21.3 (10-20); Blood Urea Nitrogen 24 mg/dl (7-18); Calcium 9.5 mg/dl (8.5-10.1); Carbon Dioxide 27 mmol/L (21-32); Chloride 107 mmol/L (98-107); Est GFR (African American) 86.8; Est GFR (Non-African American) 74.9; Glucose 97 mg/dl (70-99); Potassium 3.7 mmol/L (3.5-5.1); Sodium 141 mmol/L (136-145)
[2018-07-29 03:55] LABS: Albumin Globulin Ratio 1.2 (0.9-2); Alkaline Phosphatase 115 U/L (45-117); Bilirubin,Total 0.7 mg/dl (0.2-1); Globulin 3.5 gm/dl (2.5-4.0); Total Protein 7.7 gm/dl (6.4-8.2); Troponin I < 0.015 ng/ml (0-0.045)
[2018-07-29] MEDS ORDERED: HYDROmorphone INJ 1 MG/ML SYRINGE ONE (04:19)
[2018-07-29] MEDS: HYDROmorphone INJ 1 MG/ML SYRINGE IV PRN ×2 (04:23→05:10)
--- NOTE | 2018-07-29 06:51 | History & Physical Report ---
Date of Service July 29, 2018 Assessment & Plan (1) Biliary colic: Biliary colic-- [facility] NPO NSS + KCl 20 mEq at 100 mils per hour. Order NM HIDA scan EF Ceftriaxone 1 g IV daily. Pantoprazole 40 mg IV daily. Zofran 4 mg IV every 6 hours as needed. Acetaminophen thousand milligrams IV every 8 hours as needed mild pain or temperature. Morphine sulfate 4 mg IV every 3 hours as needed severe pain. Serial CBC with differential, chemistry profile and magnesium levels. Consult general surgery. Present on Admission?: Yes (2) GERD (gastroesophageal reflux disease): Change omeprazole orally to pantoprazole IV. Present on Admission?: Yes History of Present Illness Chief Complaint: The patient presents to the emergency department with complaint of epigastric area and right upper quadrant discomfort that awoke him from sleep. Primary Care Provider: Liya Jaquez PA-C The patient is a 52-year-old male with a past medical history primarily of GERD, who presents emergency department after being awoken from sleep by epigastric pain along with right upper quadrant pain. He did have an episode about 1/2 weeks ago, and he describes reflux type symptoms abdominal bloating and intermittent nausea over the past year and a half. He did undergo an EGD which was negative. Allergies Allergy/AdvReac Type Severity Reaction Status Date / Time No Known Allergies Allergy Verified 07/29/18 03:52 Home Medications Home Medications Medication Instructions Recorded Confirmed Type omeprazole 40 mg PO DAILY PRN 04/29/18 07/29/18 History naproxen sodium 220 - 440 mg PO DIRECTED PRN 07/29/18 07/29/18 History Past Med/Surg History Medical History Lumbar spondylosis (Chronic) Lumbar disc herniation (Chronic) Bilateral sacroiliitis (Chronic) Lumbar radiculitis (Chronic) 90% improved status post L5-S1 interlaminar epidural steroid injections Olecranon bursitis (Chronic) Spasm of back muscles (Chronic) Chronic back pain GERD (gastroesophageal reflux disease) Hx of fracture of ankle right - Has had 2 surgeries on ankle Surgical History History of ankle surgery right Social History Communication Ability: Effective Beliefs That Will Affect Care: None marital status: Current Living Situation: Spouse Feels Safe at Home: Yes Smoking Status: Unknown if ever smoked Hx Alcohol Use: Yes Hx Substance Use: No Review of Systems The patient denies chest pain, palpitations, shortness of breath, dyspnea on exertion, cough, lower extremity swelling, sore throat, fevers, chills, sweats, vomiting, diarrhea , constipation, pelvic pain, blood in urine or stool, dysuria, urinary frequency or urgency, lightheadedness, dizziness, headache, memory loss, loss of consciousness, rash, abnormal bruising or bleeding, imbalance, focal or generalized weakness, numbness or tingling in arms or legs, generalized arthralgias or myalgiaa, neck pain, or night sweats. The review of systems is otherwise negative other than for that already noted above, and at least 10 systems have been reviewed. Physical Exam Vital Signs (Past 24 Hours): Last Vital Signs Temp 36.6 C 07/29/18 03:13 Pulse 59 L 07/29/18 06:01 Resp 17 07/29/18 06:01 BP 135/89 07/29/18 06:01 Pulse Ox 93 07/29/18 06:01 Physical Exam: The patient is awake, alert and oriented 3, well developed and well nourished, normocephalic and atraumatic, lying in bed and in no acute distress. HEENT--PERRL, EOMI, mucous membranes and oropharynx normal. Neck--supple. No JVD. No bruits. Thyroid normal, trachea midline, no adenopathy. Heart--normal S1 and S2. No murmurs, rubs or gallops. Lungs--clear bilaterally, no respiratory distress, no accessory muscle use. Abdomen--normal bowel sounds and soft. Mild tenderness epigastric right upper quadrant. Nondistended. Extremities--no cyanosis or clubbing. No edema. There are good distal pulses b/l. Dermatologic--normal skin turgor, normal color, no abnormal lymph nodes, no rash. Neurologic--cranial nerves II through XII grossly intact. Rheumatologic--normal range of motion. Psychiatric--normal affect. Results & Data Laboratory Results Laboratory Results WBC 12.91 K/uL (4.8-10.8) H 07/29/18 03:22 RBC 5.39 M/uL (4.7-6.1) 07/29/18 03:22 Hgb 17.5 g/dL (14.0-18.0) 07/29/18 03:22 Hct 48.7 % (42-52) 07/29/18 03:22 MCV 90.4 fL (80-100) 07/29/18 03:22 MCH 32.5 pg (25-34) 07/29/18 03:22 MCHC 35.9 g/dL (32-36) 07/29/18 03:22 RDW Std Deviation 42.5 fL (36.4-46.3) 07/29/18 03:22 RDW Coeff of Kaylynn 13.1 % (11.5-14.5) 07/29/18 03:22 Plt Count 247 K/uL (130-400) 07/29/18 03:22 MPV 9.9 fL (7.4-10.4) 07/29/18 03:22 Immature Gran % (Auto) 0.3 % 07/29/18 03:22 Neut % (Auto) 70.5 % 07/29/18 03:22 Lymph % (Auto) 19.2 % 07/29/18 03:22 Holt % (Auto) 8.4 % 07/29/18 03:22 Eos % (Auto) 1.1 % 07/29/18 03:22 Baso % (Auto) 0.5 % 07/29/18 03:22 Immature Gran # (Auto) 0.04 K/uL (0.00-0.02) H 07/29/18 03:22 Neut # (Auto) 9.11 K/uL (1.4-6.5) H 07/29/18 03:22 Lymph # (Auto) 2.48 K/uL (1.2-3.4) 07/29/18 03:22 Holt # (Auto) 1.08 K/uL (0.11-0.59) H 07/29/18 03:22 Eos # (Auto) 0.14 K/uL (0-0.5) 07/29/18 03:22 Baso # (Auto) 0.06 K/uL (0-0.2) 07/29/18 03:22 Sodium 141 mmol/L (136-145) 07/29/18 03:22 Potassium 3.7 mmol/L (3.5-5.1) 07/29/18 03:22 Chloride 107 mmol/L (98-107) 07/29/18 03:22 Carbon Dioxide 27 mmol/L (21-32) 07/29/18 03:22 Anion Gap 7.0 (3-11) 07/29/18 03:22 BUN 24 mg/dl (7-18) H 07/29/18 03:22 Creatinine 1.11 mg/dl (0.6-1.4) 07/29/18 03:22 Est Cr Clr Drug Dosing Not Reportable 07/29/18 03:22 Est GFR ( Amer) 86.8 07/29/18 03:22 Est GFR (Non-Af Amer) 74.9 07/29/18 03:22 BUN/Creatinine Ratio 21.3 (10-20) H 07/29/18 03:22 Glucose 97 mg/dl (70-99) 07/29/18 03:22 Calcium 9.5 mg/dl (8.5-10.1) 07/29/18 03:22 Total Bilirubin 0.7 mg/dl (0.2-1) 07/29/18 03:22 AST 22 U/L (15-37) 07/29/18 03:22 ALT 48 U/L (12-78) 07/29/18 03:22 Alkaline Phosphatase 115 U/L (45-117) 07/29/18 03:22 POC Troponin I < 0.03 ng/ml (0-0.045) 07/29/18 03:22 Troponin I < 0.015 ng/ml (0-0.045) 07/29/18 03:22 Total Protein 7.7 gm/dl (6.4-8.2) 07/29/18 03:22 Albumin 4.2 gm/dl (3.4-5.0) 07/29/18 03:22 Globulin 3.5 gm/dl (2.5-4.0) 07/29/18 03:22 Albumin/Globulin Ratio 1.2 (0.9-2) 07/29/18 03:22 Lipase 190 U/L (73-393) 07/29/18 03:22 Diagnostic Findings Ultrasound right upper quadrant shows biliary sludge Code Status & VTE Plan Code Status Full code VTE Prophylaxis Plan VTE Prophylaxis will be ordered: Yes
--- NOTE | 2018-07-29 07:16 | Ultrasound Report ---
US gallbladder CLINICAL HISTORY: 52 years-old Male presenting with ruq pain. TECHNIQUE: Real-time grayscale and limited color Doppler ultrasound imaging of the abdomen limited to the right upper quadrant was performed. COMPARISON: CT from 07/04/2015. FINDINGS: Image quality is degraded by patient body habitus and bowel gas limiting sonographic penetration and adequate sonographic windows. This mildly negatively affects diagnostic sensitivity the exam. Pancreas: Visualized portions of the pancreatic head and body normal. Liver: Hyperechogenic parenchyma with heterogeneous echotexture, likely indicating fibrosis or steato sis. The liver measures 14.6 cm in maximal sagittal dimension. No sonographic evidence of hepatic mas s. Main portal vein patent with normal directional flow. Biliary: No intrahepatic biliary ductal dilatation. Common bile duct measures up to 4 mm in diameter. Gallbladder: Gallbladder sludge suggested with a conglomerate nonshadowing focus of mild hyperechogen icity near the gallbladder neck. Nondependent sludge also evident. The gallbladder is distended possi leo on a physiologic basis. No evidence of gallstones, significant gallbladder wall thickening, or pe richolecystic fluid or inflammatory change. Unable to assess sonographic Frazier's sign. Right kidney: No hydronephrosis. Several renal cysts suggested the largest at the upper pole measurin g 4.3 cm. Ascites: None. Other: None. IMPRESSION: 1. Gallbladder sludge without evidence of cholelithiasis or biliary ductal dilatation. Distention of the gallbladder may be on a physiologic basis. If there is continuing clinical concern, nuclear medi cine HIDA scan could be obtained. 2. Hyperechogenicity of the hepatic parenchyma suggests underlying steatosis or fibrosis. 3. Right renal cysts. Electronically signed by: Mat Burleson M.D. 07/29/2018 7:15 AM
[2018-07-29] MEDS ORDERED: MoRPHine SULFATE 4 MG/ML 1 ML CARP\\VIAL IV PRN ×2 (07:52→14:03)
[2018-07-29] MEDS ORDERED: ONDANSETRON INJ 2 MG/ML 2 ML VIAL IV PRN ×2 (07:52→10:57)
[2018-07-29] MEDS ORDERED: ACETAMINOPHEN 1000 MG/100 ML IV IV PRN (07:52)
--- NOTE | 2018-07-29 07:55 | XRay Report ---
XR chest 1V portable CLINICAL HISTORY: 52 years-old Male presenting with Chest Pain. TECHNIQUE: Portable upright AP view of the chest was obtained. COMPARISON: None. FINDINGS: Cardiomediastinal silhouette normal. No focal opacity. No large effusion or pneumothorax. Osseous str uctures normal. Upper abdomen normal. IMPRESSION: 1. No acute cardiopulmonary disease. Electronically signed by: Mat Burleson M.D. 07/29/2018 7:54 AM
[2018-07-29] MEDS: NSS + 20MEQ KCL 20 MEQ/1,000 ML BAG IV SCH ×2 (10:00→22:39)
[2018-07-29] MEDS: cefTRIAXone SODIUM 1,000 MG in DEXTROSE 5% 50 ML IV SCH (10:00)
--- NOTE | 2018-07-29 10:56 | Anesthesiology Consultation ---
Date of Service July 29, 2018 Assessment & Plan (1) Encounter for pre-operative examination: Chart Review Chart Review: Acceptable Risk for Surgery and Patient NOT seen in Pre Admission Testing Consults Requested none NPO Date Last Intake of Fluids: 07/29/18 Time Last Intake of Fluids: 02:00 Last Intake of Fluids Comment: sip of water with pills and ice chips at 0400 Date Last Intake of Solids: 07/28/18 Time Last Intake of Solids: 20:30 History Surgery Operation Date: 07/29/18 13:55 Proposed Procedures p Laparoscopic Cholecystectomy with Possible Cholangiogram - Jorge Bird, , FACS Height/Weight Height: 6 ft Weight: 104 kg Allergies Allergy/AdvReac Type Severity Reaction Status Date / Time No Known Allergies Allergy Verified 07/29/18 03:52 Medications Home Medications Medication Instructions Recorded Confirmed Last Taken omeprazole 40 mg PO DAILY PRN 04/29/18 07/29/18 Unknown naproxen sodium 220 - 440 mg PO DIRECTED PRN 07/29/18 07/29/18 Unknown Active Medications Generic Name Dose Route Start Last Admin Trade Name Freq PRN Reason Stop Dose Admin Ceftriaxone Sodium 1,000 mg/ 60 mls @ 100 mls/hr 07/29/18 09:30 07/29/18 10 :43 Dextrose IV 08/08/18 09:29 Infused DAILY@0900 KELL Infusion Potassium Chloride/Sodium Chloride 20 meq in 1,000 mls @ 100 mls/hr 07/29/18 09:30 07/29/18 10:00 Normal Saline W/20 Meq Kcl IV 08/28/18 09:29 100 mls/hr .Q10H KELL Administration Pantoprazole Sodium 40 mg/ 10 mls @ 5 mls/min 07/29/18 11:00 07/29/18 10:00 Syringe IV 08/28/18 10:59 5 mls/min DAILY@1100 KELL Administration Past Medical History Medical History Lumbar spondylosis (Chronic) Lumbar disc herniation (Chronic) Bilateral sacroiliitis (Chronic) Lumbar radiculitis (Chronic) 90% improved status post L5-S1 interlaminar epidural steroid injections Olecranon bursitis (Chronic) Spasm of back muscles (Chronic) Chronic back pain GERD (gastroesophageal reflux disease) Hx of fracture of ankle right - Has had 2 surgeries on ankle Past Surgical History Surgical History History of back surgery Grade 1 view Mac 3 blade History of ankle surgery right Social History Smoking Status: Never smoker Do You Dip or Chew Tobacco: No Hx Alcohol Use: No alcohol intake frequency: holidays/special occasions only Hx Substance Use: No Physical Exam Vital Signs Last Vital Signs Temp 36.6 C 07/29/18 07:40 Pulse 66 07/29/18 07:40 Resp 18 07/29/18 07:40 BP 126/86 07/29/18 07:40 Pulse Ox 96 07/29/18 07:40 Testing Electrocardiogram Date: 07/29/18 Findings: + NSR @ (61) and + RBBB Chest X-Ray Date: 07/29/18 Findings: + NAD Laboratory Results 07/29/18 03:22 07/29/18 03:22
[2018-07-29] MEDS ORDERED: ePHEDrine sulfate 50 MG/ML AMP IV PRN (10:57)
[2018-07-29] MEDS ORDERED: ATROPINE SULFATE 0.1 MG/ML 10ML SYR IV PRN (10:57)
[2018-07-29] MEDS ORDERED: LABETALOL HCL IV 5 MG/ML 20ML IV PRN (10:57)
[2018-07-29] MEDS ORDERED: MEPERIDINE HCL 25 MG/ML CARP IV PRN (10:57)
[2018-07-29] MEDS ORDERED: PHENYLEPHRINE 100MCG/ML 5ML SYR IV PRN (10:57)
[2018-07-29] MEDS ORDERED: HYDROmorphone INJ 1 MG/ML SYRINGE IV PRN ×2 (10:57→14:18)
[2018-07-29] MEDS ORDERED: PANTOprazole 40 MG in SYRINGE 0 ML IV SCH (11:00)
[2018-07-29] MEDS ORDERED: fentaNYL citrate 100 MCG/2 ML VIAL ONE ×3 (11:08→12:29)
[2018-07-29] MEDS ORDERED: MIDAZOLAM HCL 1 MG/ML 2ML VIAL ONE (11:08)
--- NOTE | 2018-07-29 11:12 | Surgery Consultation ---
Date of Consultation July 29, 2018 Assessment & Plan (1) Biliary colic: Acute/chronic cholecystitis. Symptoms and exam are consistent with cholecystitis, will cancel HIDA and proceed with laparoscopic cholecystectomy. Supervising Physician Co-Signing Physician Notes Patient seen and examined, labs and imaging reviewed, agree with above. 52-year-old male with epigastric and chest pain after eating pizza last night. He has had a few episodes like this in the past. The pain radiates to his back. He had an ultrasound performed in the emergency department that showed a distended gallbladder, no pericholecystic fluid or gallbladder wall thickening, some sludge but no stones, no bile duct dilatation. He was admitted to the medicine service with plans for HIDA scan today. However after examination and discussion of his symptoms with our physician's family and divorce legal assistant, it was felt that this was likely his gallbladder and he is now plan for cholecystectomy. Plan for laparoscopic cholecystectomy with possible cholangiogram The risk of the procedure were discussed to include but are not limited to bleeding, infection, damage to surrounding structures including common bile duct, retained stone, need for future [place] of surgery, bile leak, failure to treat symptoms, and the risk of anesthesia Antibiotics preop Diagnosis, details of procedure and recovery, and plan of care discussed the patient, HER answer, the patient expressed understanding agrees the plan of care as stated. History of Present Illness Attending Physician: Chase Oglesby MD History of Present Illness 52 y/o male with second episode of epigastric/RUQ pain in 10 days. Began overnight several hours after eating broccoli pizza. Pain radiates around right side to his back. Came to the ED this morning for persistent pain. Had nausea during ultrasound. Has had bloating, discomfort for some time he thought was related to his reflux. Had negative EGD about 18 mos ago, takes occasional omeprazole. Allergies Allergy/AdvReac Type Severity Reaction Status Date / Time No Known Allergies Allergy Verified 07/29/18 03:52 Home Medications Home Medications Medication Instructions Recorded Confirmed Type omeprazole 40 mg PO DAILY PRN 04/29/18 07/29/18 History naproxen sodium 220 - 440 mg PO DIRECTED PRN 07/29/18 07/29/18 History Patient History Medical History Lumbar spondylosis (Chronic) Lumbar disc herniation (Chronic) Bilateral sacroiliitis (Chronic) Lumbar radiculitis (Chronic) 90% improved status post L5-S1 interlaminar epidural steroid injections Olecranon bursitis (Chronic) Spasm of back muscles (Chronic) Chronic back pain GERD (gastroesophageal reflux disease) Hx of fracture of ankle right - Has had 2 surgeries on ankle Surgical History History of back surgery Grade 1 view Mac 3 blade History of ankle surgery right Social History Preferred Language: Monegasque Communication Ability: Effective Nurse Special Required: No Beliefs That Will Affect Care: None marital status: Current Living Situation: Spouse Other Information That Helps Us Care for You: No Feels Safe at Home: Yes Safety Concerns: Feels Safe At This Time Smoking Status: Never smoker Hx Alcohol Use: No Hx Substance Use: No Review of Systems Constitutional: no fever and no chills Gastrointestinal: + abdominal pain, + bloating and + nausea Physical Exam Vital Signs (Past 24 Hours): Last Vital Signs Temp 36.6 C 07/29/18 07:40 Pulse 66 07/29/18 07:40 Resp 18 07/29/18 07:40 BP 126/86 07/29/18 07:40 Pulse Ox 96 07/29/18 07:40 Constitutional: WD/WN, vitals as above Respiratory: normal respiratory effort, lungs clear to auscultation Cardiovascular: RRR, no murmur, no edema Gastrointestinal (Abdomen): Inspection/Auscultation: abdomen not distended Percussion/Palpation: + abdomen tender (RUQ) and abdomen soft
[2018-07-29] MEDS ORDERED: BUPIVACAINE 0.5 % 5 MG/1 ML MPF 30ML VIAL ONE (11:16)
[2018-07-29] MEDS ORDERED: CONRAY 60% 50 ML VIAL ONE (11:16)
[2018-07-29] MEDS ORDERED: PROPOFOL IV EMULSION 10 MG/ML 20 ML VIAL IV ONE (12:29)
[2018-07-29] MEDS ORDERED: NEOSTIGMINE METHYLSULFATE 5 MG/5 ML SYR ONE (12:29)
[2018-07-29] MEDS ORDERED: ROCURONIUM BROMIDE 10 MG/ML 5 ML VIAL ONE (12:29)
[2018-07-29] MEDS ORDERED: LIDOCAINE HCL 2% 2 ML VIAL/AMP(20MG/ML) INFIL ONE (12:29)
[2018-07-29] MEDS ORDERED: DEXAMETHASONE SOD INJ 4 MG/ML VIAL ONE (12:29)
[2018-07-29] MEDS ORDERED: GLYCOPYRROLATE 0.2 MG/ML VIAL ONE (12:29)
[2018-07-29] MEDS ORDERED: ONDANSETRON INJ 2 MG/ML 2 ML VIAL ONE (12:29)
--- NOTE | 2018-07-29 12:40 | Operative Report ---
Post Operative Report Pre & Post Diagnosis Operation Date: 07/29/18 13:55 Pre-Op Diagnosis: Acute Cholecystitis Postop diagnosis: Acute calculus cholecystitis Procedure Operation Date: 07/29/18 13:55 Actual Procedures p Laparoscopic Cholecystectomy - Jorge Bird DO, RUBY Surgeon Jorge Bird DO, RUBY Mixer Whipped Topping Carlos Guallpa Estimated Blood Loss 4 Findings Consistent with Post-Op Diagnosis Gallbladder distended and moderately inflamed. Critical view of safety obtained. Cystic duct and artery doubly clipped and divided Specimens Called Anesthesia Type General Complications none Disposition Accompanied Patient To Recovery: No Disposition: Recovery Room Indications 52-year-old male presented to the emergency department overnight with right upper quadrant abdominal pain after eating pizza. Right upper quadrant ultrasound showed distended gallbladder but no pericholecystic fluid, no gallbladder wall thickening, sludge but no stones. Plan for laparoscopic cholecystectomy possible cholangiogram. The risks of the procedure were discussed, all questions were answered, and the patient agreed to proceed with surgery as planned. Description of Procedure The patient was properly identified, consented, and taken to the operating room where he was placed in the supine position. General endotracheal anesthesia was induced. SCDs and a safety belt were placed. Preoperative antibiotics were administered. The patient's abdomen was prepped and draped in the standard sterile fashion. A surgical timeout was performed and all parties were in agreement that this was the correct patient and procedure to be performed and we continued as planned. An incision was made superior and to the left of the umbilicus overlying the rectus muscle and the Veress needle was inserted. Saline drop test confirmed entry into the peritoneum. The abdomen was insufflated with carbon dioxide which the patient tolerated without incident. The abdomen was then entered using the Optiview technique and a 5 mm trocar. The laparoscope was inserted and no damage from initial trocar or Veress needle placement was noted, no gross abnormalities were noted within the 4 quadrants of the abdomen. An 11 mm port was placed in the subxiphoid position and two 5 mm ports were then placed in the right subcostal position. The patient was placed in reverse Trendelenburg posit ion and rotated towards the left. The gallbladder was distended and moderately inflamed. The dome of the gallbladder was retracted towards the left upper quadrant and the infundibulum was retracted toward the right lower quadrant revealing Calot's triangle. Peritoneal attachments were taken down with electrocautery and blunt dissection. The cystic duct and artery were circumferentially dissected. A window of safety was obtained showing the cystic duct entering the gallbladder with no aberrant structures noted. The cystic duct and artery were doubly clipped and divided. The gallbladder was then lifted off the gallbladder fossa with electrocautery. The gallbladder tore near the fibula and a small amount of sludge and stones were spilled. These were suctioned and removed. The gallbladder was placed in an Endo Catch bag and removed through the subxiphoid port site. The right upper quadrant was irrigated and hemostasis was found to be good. 5 mm trochars were removed under direct visualization and the abdomen was allowed to collapse. The subxiphoid port site fascia was closed with 0 Vicryl suture. The wound was irrigated, and the skin of all ports was closed with 4-0 Monocryl subcuticular sutures. Dermabond was placed over the wounds. The patient was extubated in the operating room and taken to the PACU where he recovered without apparent incident. All sponge, instrument and needle counts were correct at the conclusion of the procedure. The patient tolerated the procedure well. The physician's mail handler assistant was present and scrubbed for the entirety of the case and was essential in positioning the patient, prepping and draping, retraction and exposure, driving the laparoscope, removal of the gallbladder, closure the incisions, and placement of the dressings. I attest to the content of the Intraoperative Record and any orders documented therein. Any exceptions are noted below.
[2018-07-29] MEDS: fentaNYL citrate 100 MCG/2 ML VIAL IV PRN ×4 (13:06→13:21)
--- NOTE | 2018-07-29 13:49 | Anesthesiology Progress Note ---
Date of Service July 29, 2018 Anesthesia Post Procedure Vital Signs Vital Signs: Temp Pulse Pulse Pulse Resp BP BP 07/29/18 13:42 36.6 C 58 L 17 138/97 07/29/18 13:30 36.6 C 60 17 133/97 07/29/18 13:20 59 L 18 140/98 07/29/18 13:10 64 26 H 156/113 H 07/29/18 13:00 73 18 156/114 H 07/29/18 12:51 36.3 C L 75 20 173/117 H 07/29/18 11:00 36.5 C 59 L 18 137/104 H 07/29/18 07:40 36.6 C 66 18 126/86 07/29/18 07:01 74 16 145/95 H 07/29/18 06:01 59 L 17 135/89 07/29/18 05:32 66 13 07/29/18 05:31 71 16 148/99 H 07/29/18 05:01 73 19 162/99 H 07/29/18 04:31 71 19 145/98 H 07/29/18 04:17 81 21 108/79 07/29/18 03:21 54 L 25 H 158/102 H 07/29/18 03:17 07/29/18 03:13 36.6 C 62 18 164/109 H Pulse Ox 07/29/18 13:42 94 07/29/18 13:30 93 07/29/18 13:20 92 07/29/18 13:10 90 07/29/18 13:00 91 07/29/18 12:51 95 07/29/18 11:00 99 07/29/18 07:40 96 07/29/18 07:01 94 07/29/18 06:01 93 07/29/18 05:32 96 07/29/18 05:31 97 07/29/18 05:01 94 07/29/18 04:31 92 07/29/18 04:17 96 07/29/18 03:21 99 07/29/18 03:17 99 07/29/18 03:13 99 Pain Intensity Abdomen: Pain Intensity: 2 Notes Mental Status: alert / awake / arousable Patient Amnestic to Procedure: Yes Nausea / Vomiting: adequately controlled Pain: adequately controlled Airway Patency, RR, SpO2: stable & adequate BP & HR: stable & adequate Hydration State: stable & adequate Anesthetic Complications: no major complications apparent and Pt Satisfied with anesthetic care
[2018-07-29] MEDS ORDERED: OXYCODONE/ACETAMINOPHEN 5mg/325mg TAB PO PRN (14:03)
[2018-07-29] MEDS ORDERED: KETOROLAC 30 MG/ML VIAL IV ONE ×2 (14:18→14:53)
--- NOTE | 2018-07-29 20:00 | Hospitalist Progress Note ---
Date of Service July 29, 2018 Assessment & Plan (1) Biliary colic: Medically stable postop, but pain is uncontrolled. Surgery has just ordered an escalation of his pain meds, will allow this time to work. Continue supportive care otherwise. (2) GERD (gastroesophageal reflux disease): Subjective Seen in follow-up from early a.m. admit. Pain uncontrolled postop. Surgery has just entered new orders for pain control. Physical Exam Vital Signs (Past 24 Hours): Last Vital Signs Temp 36.7 C 07/29/18 17:14 Pulse 80 07/29/18 17:14 Resp 16 07/29/18 17:14 BP 138/97 07/29/18 17:14 Pulse Ox 93 07/29/18 17:14 Physical Exam: He appears uncomfortable due to postoperative pain, breathing is unlabored. She has no pallor or icterus.
[2018-07-29] MEDS: KETOROLAC 30 MG/ML VIAL IV PRN (21:07)
[2018-07-30] MEDS: NSS + 20MEQ KCL 20 MEQ/1,000 ML BAG IV SCH ×2 (04:55→04:57)
[2018-07-30] MEDS: KETOROLAC 30 MG/ML VIAL IV PRN (06:46)
[2018-07-30 07:20] LABS: Hematocrit (blood only) 42.9 % (42-52); Hemoglobin 15.1 g/dL (14.0-18.0); Mean Corpuscular Hgb Conc 35.2 g/dL (32-36); Mean Corpuscular Volume 90.5 fL (80-100); Mean Platelet Volume 10.3 fL (7.4-10.4); Platelet Count 197 K/uL (130-400); RDW Coefficient of Variation 12.9 % (11.5-14.5); RDW Standard Deviation 42.9 fL (36.4-46.3); Red Blood Count 4.74 M/uL (4.7-6.1); White Blood Count 20.42 K/uL (4.8-10.8)
[2018-07-30 07:25] LABS: INR 1.1 (0.9-1.1); Partial Thromboplastin Time 26.5 Seconds (21.0-31.0); Prothrombin Time 11.4 Seconds (9.0-12.0)
[2018-07-30 07:32] LABS: Basophils # (auto) 0.01 K/uL (0-0.2); Immature Granulocytes # (auto) 0.07 K/uL (0.00-0.02); Immature Granulocytes % (auto) 0.3 %; Lymphocytes # (auto) 1.08 K/uL (1.2-3.4); Lymphocytes % (auto) 5.3 %; Monocytes # (auto) 1.52 K/uL (0.11-0.59); Monocytes % (auto) 7.4 %; Neutrophils # (auto) 17.74 K/uL (1.4-6.5)
[2018-07-30 07:46] LABS: Albumin Level 3.3 gm/dl (3.4-5.0); BUN Creatinine Ratio 16.1 (10-20); Bilirubin,Total 1.2 mg/dl (0.2-1); Creatinine Clr Calc Pharmacy 108.6 ml/min; Est GFR (African American) 102.2; Est GFR (Non-African American) 88.1; Globulin 3.3 gm/dl (2.5-4.0); Potassium 4.1 mmol/L (3.5-5.1); Total Protein 6.6 gm/dl (6.4-8.2)
--- NOTE | 2018-07-30 07:56 | Hospitalist Progress Note ---
Date of Service July 30, 2018 Assessment & Plan (1) Biliary colic: Medically stable postop, but pain is uncontrolled. Surgery has just ordered an escalation of his pain meds, will allow this time to work. Continue supportive care otherwise. (2) GERD (gastroesophageal reflux disease): Change omeprazole orally to pantoprazole IV. Physical Exam Vital Signs (Past 24 Hours): Last Vital Signs Temp 36.8 C 07/30/18 03:57 Pulse 62 07/30/18 03:57 Resp 16 07/30/18 03:57 BP 124/77 07/30/18 03:57 Pulse Ox 92 07/30/18 03:57
--- NOTE | 2018-07-30 08:29 | Surgery Progress Note ---
Date of Service July 30, 2018 Assessment & Plan (1) Biliary colic: POD 1 lap gia ok for d/c if tolerates diet Subjective feeling better, tolerating full liquids Physical Exam Vital Signs (Past 24 Hours): Last Vital Signs Temp 36.8 C 07/30/18 08:10 Pulse 64 07/30/18 08:10 Resp 18 07/30/18 08:10 BP 136/92 07/30/18 08:10 Pulse Ox 92 07/30/18 03:57 Gastrointestinal (Abdomen): Inspection/Auscultation: + abdominal surgical incision (clean, dry) Percussion/Palpation: abdomen soft
[2018-07-30] MEDS: cefTRIAXone SODIUM 1,000 MG in DEXTROSE 5% 50 ML IV SCH (08:33)
--- NOTE | 2018-07-30 15:14 | Discharge Summary ---
Date of Service July 30, 2018 Admission HPI Per Admitting Provider The patient is a 52-year-old male with a past medical history primarily of GERD, who presents emergency department after being awoken from sleep by epigastric pain along with right upper quadrant pain. He did have an episode about 1/2 weeks ago, and he describes reflux type symptoms abdominal bloating and intermittent nausea over the past year and a half. He did undergo an EGD which was negative. Principal Diagnosis cholecystectomy Discharge Exam Constitutional well developed and average body habitus Eyes no conjunctival abnormality and no scleral abnormality Neck normal visual inspection and trachea midline Respiratory normal respiratory effort; no respiratory distress Auscultation: lungs clear to auscultation bilaterally Cardiovascular RRR, no murmur, no edema Gastrointestinal (Abdomen) Inspection/Auscultation: abdomen normal to inspection and + abdomen distended Percussion/Palpation: + abdomen tender and abdomen soft Musculoskeletal no cyanosis or clubbing, extremities motor strength 5/5 Discharge Data Allergies Allergy/AdvReac Type Severity Reaction Status Date / Time No Known Allergies Allergy Verified 07/29/18 03:52 Consultations 07/29/18 05:38 ED Decision to Admit Stat 07/29/18 07:52 Consult Case Management - Discharge Planning Routine Consult General Surgery Routine Procedures Performed Operation Date: 07/29/18 13:55 Actual Procedures p Laparoscopic Cholecystectomy - Jorge Bird DO, FACS Ordered Studies 07/29/18 03:11 gallbladder Urgent Hospital Course (1) Biliary colic: Medically stable postop, onlyusing tylenol for pain, pt does not think he will need home opiates but surgery has ordered (2) GERD (gastroesophageal reflux disease): omeprazole Total Time Total Time Spent Total Time Spent (In Minutes): greater than 30 minutes were required to prepare discharge Discharge Plan Discharge Items Patient Disposition: Home - Self-Care Reason For Visit: BILIARY COLIC Discharge Diagnosis: laparoscopic cholecystectomy Condition: Good Discharge Goals: Decrease discomfort Activity: Per 'Additional Instructions' section Lifting: No more than 10 pounds Bathing Comment: ok to shower Driving/Machine Use: Resume 3 days after discharge Non-emergency contact: Surgeon Call non-emergency contact if: you have any medication questions, your pain is not controlled, you have a fever and your temperature is above 101.5 Follow-up/Referrals: Jorge Bird DO, FACS [Physician] - (Call to make an appt in 2 weeks) Liya Jaquez PA-C [Primary Care Provider] - Diet: Regular Addtl Provider Instructions: Prescriptions: New hydrocodone-acetaminophen [[place]] 5-325 mg tablet 1 - 2 tab PO Q4H Qty: 15 RF: 0 Continued omeprazole 40 mg Capsule,Delayed Release(Dr/Ec) 40 mg PO DAILY PRN (Reason: Acid Reflux) RF: 0 naproxen sodium 220 mg Tablet 220 - 440 mg PO DIRECTED PRN (Reason: Pain) RF: 0 Stand-Alone Forms: Call Back Authorization, [facility] Discharge Orders: Discharge Order (Routine); Ordered 07/30/18 Ordered By: Angel Resendez Admission Data Admit Date/Time: 07/29/18 06:41 Attending Provider: Angel Resendez Admit Provider: Chase Oglesby Primary Care Provider: Liya Jaquez Other Providers: Chase Oglesby ; Jorge Bird Service: Medical Other Interventions: Discharge Summary Assessment (RN) Last Done: 07/30/18 11:37 DC Date/Time DO NOT enter until pt leaves facility: 07/30/18 12:00
== END 2018-07-30 12:00 | disposition home or self-care (01) ==
LOC: 3N 03:06 → ED 03:06 → SUATTDRO 06:41 → 3N 07:28

== ENCOUNTER 2019-12-28 20:50 | Observation (INO) ==
--- OUTSIDE RECORDS SUMMARY | 2019-12-28 20:52 | External Medical Summary | Continuity of Care Document ---
:1965 Author Name Russell Cintron, Provider Address Unavailable Unavailable , Care Team Providers Name Role Phone Jorge Bird DO Unavailable [email or web address] Liya Jaquez Unavailable Unavailable Unavailable Unavailable Unavailable Assessments Assessed Problems:Aftercare following surgery Problems Aftercare following surgery (V58.89) (Z48.89) Allergies and Adverse Reactions No Known Drug Allergies (Allergy) Medications No Reported Medications Refills: 0 Procedures History of Cholecystectomy Laparoscopic Status: Completed 29-Jul-2018 0:00 History of Ankle Surgery Status: Complet ed History of Ankle Repair Status: Complete d History of Lumbar Vertebral Fusion Statu s: Completed Immunizations Immunizations not documented Plan of Treatment Planned Observations Planned Goals not documented Results No Known Results Results not documented Encounters Appointment; Jorge Bird DO 12-Aug-2018 10:00 Encounter Diagnosis: Problem not documented
--- OUTSIDE RECORDS SUMMARY | 2019-12-28 20:52 | External Medical Summary | Continuity of Care Document ---
:1965 Author Name Russell Cintron, Provider Address Unavailable Unavailable , Care Team Providers Name Role Phone Jorge Bird DO Unavailable [email or web address] Liya Jaquez Unavailable Unavailable Unavailable Unavailable Unavailable [...]
[2019-12-28] MEDS ORDERED: MoRPHine SULFATE 2 MG/ML CARP IV STA (21:31)
[2019-12-28] MEDS ORDERED: FAMOTIDINE 20MG/5ML IV PUSH IV STA (21:31)
[2019-12-28] MEDS ORDERED: KETOROLAC TROMETHAMINE 15 MG/ML VIAL IV STA (21:31)
[2019-12-28] MEDS ORDERED: ONDANSETRON INJ 2 MG/ML 2 ML VIAL IV STA (21:32)
[2019-12-28] MEDS ORDERED: SODIUM CHLORIDE 0.9% 500 ML IV SCH (21:45)
--- NOTE | 2019-12-28 21:54 | Emergency Department Note ---
Impression & Plan Precordial chest pain, Elevated troponin ED Provider Note NAME: DONALDO FLANAGAN AGE: 54 SEX: M : 1965 ARRIVES VIA: Walk-In INFORMANT: [Patient][family] ED PROVIDER(S): [Hector Beltre MD] CHIEF COMPLAINT: Chest pain HISTORY OF PRESENT ILLNESS: The patient is a 54-year-old male presents the ER with around 3.5 hours of central chest pain radiating to the back. The pain came on at rest. The pain has been quite severe at a 7/10. The patient does feel somewhat nauseated and had some dry heaves. There is no shortness of breath. The patient has not had cough or cold or congestion. He felt fine earlier in the day. The patient tried some baking soda which did not help his symptoms. He has no history of coronary disease. He does have some reflux from time to time but nothing this severe. The patient states that this feels similar to when he had his ga llbladder removed although not as severe. He feels worse lying flat, better sitting forward. REVIEW OF SYSTEMS: See HPI for pertinent positives and negatives. A total of ten systems were reviewed and were otherwise negative. PMHx/PSHx: See Below SOCIAL HISTORY: See Below. PHYSICAL EXAM: GENERAL: Patient is in mild distress from pain HEENT: No acute trauma, normocephalic atraumatic, mucous membranes moist, no nasal congestion, no scleral icterus. NECK: No stridor, no adenopathy, no meningismus, trachea is midline. LUNGS: Clear to auscultation bilaterally, no wheeze, no rhonchi, breath sounds equal. HEART: Without murmurs gallops or rubs, regular rate and rhythm. Chest: Tender across the anterior chest wall. ABDOMEN: Soft, mildly tender in the epigastrium, bowel sounds positive, no hernias, no peritonitis. EXTREMITIES: No cyanosis or edema, full range of motion of all the joints without pain or difficulty, no signs for acute trauma. NEUROLOGIC: Oriented x 3, no acute motor or sensory deficits, no focal weakness. SKIN: No rash, no jaundice, no diaphoresis. DIFFERENTIAL DIAGNOSIS: Cardiac ischemia, aortic dissection, pulmonary embolism, pneumothorax, pneumonia, pericarditis, myocarditis, esophageal rupture, GERD, cholecystitis, pancreatitis, musculoskeletal, as well as other pathologies. EMERGENCY DEPARTMENT COURSE/PROCEDURES: ECG: Indication was chest pain. The ECG shows a normal sinus rhythm with a rate of 65. The QTc is 428. There is no ST elevation, no PVCs. Continuous Cardiac Monitoring: An order was placed for continuous cardiac monitoring. The monitor shows a rate of 68 with normal sinus rhythm. MEDICAL DECISION MAKING: There was no leukocytosis or concerning anemia. No significant electrolyte abnormality. D-dimer testing was negative. With a negative d-dimer, the risk for PE was certainly felt to be less. There was no significant electrolyte abnormality or kidney failure. No liver enzyme elevation. Lipase was normal making pancreatitis less likely. ECG shows a sinus rhythm, no acute ischemia. Cardiac enzyme testing x1 was slightly elevated. This elevation could be consistent with cardiac strain or injury. Chest x-ray did not show mediastinal widening, pneumonia or pneumothorax. Chest CT does not show any PE, no evidence for aortic dissection. No lung pathology. The patient received IV Pepcid, IV morphine, IV Toradol and IV Zofran. He was given IV saline, he was given oral aspirin. Patient does feel improved but is still having some occasional chest discomfort. At this point, the cause for his symptoms is unclear. His pain may be gastrointestinal in origin, with the troponin elevation, a cardiac etiology is a possibility. Further work-up is warranted. I did speak to the patient and case management. The on-call hospitalist was consulted. Past Med/Surg History Medical History Bilateral sacroiliitis Chronic back pain GERD (gastroesophageal reflux disease) Hx of fracture of ankle right - Has had 2 surgeries on ankle Lumbar disc herniation Lumbar radiculitis 90% improved status post L5-S1 interlaminar epidural steroid injections Lumbar spondylosis Olecranon bursitis Spasm of back muscles Surgical History History of ankle surgery right History of back surgery Grade 1 view Mac 3 blade Social History Smoking Status: Never smoker Second Hand Exposure: No; Hx Alcohol Use: No Hx Substance Use: No Preferred Language: Guyanese Communication Ability: Effective Visual Impairment: No Limitations Jig Filler Required: No Beliefs That Will Affect Care: None marital status: Current Living Situation: Spouse Feels Safe at Home: Yes Allergies Allergies Allergy/AdvReac Type Severity Reaction Status Date / Time acetaminophen [From Vicodin] AdvReac Severe BOWLES, Verified 12/28/19 23:02 GI-UPSET hydrocodone [From Vicodin] AdvReac Severe BOWLES, Verified 12/28/19 23:02 GI-UPSET Home Meds Home Medications Medication Instructions Recorded Confirmed calcium carbonate [Tums] 400 mg PO BID PRN 12/28/19 12/28/19 ibuprofen [Advil] 400 mg PO BID PRN 12/28/19 12/28/19 omeprazole magnesium [Prilosec OTC] 20 mg PO DAILY PRN 12/28/19 12/28/19 Results & Data (ED) Vital Signs Vital Signs - 24 hr 12/28/19 20:50 12/28/19 21:31 12/28/19 23:41 Temperature 36.6 C Temperature Source Oral Pulse Rate 68 Pulse Rate [Apical] 58 L Respiratory Rate 18 18 Respiratory Effort / Characteristics Non-Labored Non-Labored Respiratory Depth Normal Normal Blood Pressure 154/100 H Blood Pressure [Right Arm] 162/97 H Blood Pressure Mean 118 Blood Pressure Mean [Right Arm] 118 Pulse Oximetry 98 98 Oxygen Delivery Method Room Air Room Air Room Air Sepsis Recent Fever Within 48 Hours No Sepsis New/Unexplained Change in Mental Status No Sepsis Action Taken by Nursing No Action Required Home Medications Current Medication List: was personally reviewed by me Laboratory Data Attestation: I reviewed the patient's lab results. Result diagrams: 12/28/19 21:43 12/28/19 21:43 Lab Results 12/28/19 12/28/19 12/28/19 Range/Units 21:43 21:43 21:43 WBC 8.57 (4.8-10.8) K/uL RBC 5.19 (4.7-6.1) M/uL Hgb 16.7 (14.0-18.0) g/dL Hct 46.8 (42-52) % MCV 90.2 (80-100) fL MCH 32.2 (25-34) pg MCHC 35.7 (32-36) g/dL RDW Std Deviation 42.5 (36.4-46.3) fL RDW Coeff of Kaylynn 12.9 (11.5-14.5) % Plt Count 252 (130-400) K/uL MPV 9.9 (7.4-10.4) fL Immature Gran % (Auto) 0.1 % Neut % (Auto) 73.5 % Lymph % (Auto) 18.7 % [place] % (Auto) 6.3 % Eos % (Auto) 0.9 % Baso % (Auto) 0.5 % Neut # (Auto) 6.30 (1.4-6.5) K/uL Lymph # (Auto) 1.60 (1.2-3.4) K/uL [place] # (Auto) 0.54 (0.11-0.59) K/uL Eos # (Auto) 0.08 (0-0.5) K/uL Baso # (Auto) 0.04 (0-0.2) K/uL Immature Gran # (Auto) 0.01 (0.00-0.02) K/uL PT 10.3 (9.0-12.0) Seconds INR 1.0 (0.9-1.1) APTT 28.7 (21.0-31.0) Seconds PTT Ratio 1.0 D-Dimer 350 (0-500) ug/L FEU Sodium 145 (136-145) mmol/L Potassium 3.7 (3.5-5.1) mmol/L Chloride 108 H (98-107) mmol/L Carbon Dioxide 31 (21-32) mmol/L Anion Gap 6.0 (3-11) BUN 16 (7-18) mg/dl Creatinine 1.11 (0.6-1.4) mg/dl Est Cr Clr Drug Dosing Not Reportable Est GFR ( Amer) 85.6 Est GFR (Non-Af Amer) 73.8 BUN/Creatinine Ratio 14.6 (10-20) Glucose 102 H (70-99) mg/dl Calcium 9.2 (8.5-10.1) mg/dl Total Bilirubin 0.5 (0.2-1) mg/dl AST 27 (15-37) U/L ALT 53 (12-78) U/L Alkaline Phosphatase 108 (45-117) U/L Troponin I 0.064 H* (0-0.045) ng/ml Total Protein 7.6 (6.4-8.2) gm/dl Albumin 3.9 (3.4-5.0) gm/dl Globulin 3.7 (2.5-4.0) gm/dl Albumin/Globulin Ratio 1.1 (0.9-2) Lipase 150 (73-393) U/L Administered Medications Discontinued Medications Aspirin (Aspirin Chew 324 Mg) 324 mg PO NOW STA Stop: 12/28/19 23:20 Last Admin: 12/28/19 23:28 Dose: 324 mg Documented by: [id number] Famotidine (Famotidine 20mg/5ml Iv Push) 20 mg IV ONE STA Stop: 12/28/19 21:32 Last Admin: 12/28/19 21:43 Dose: 20 mg Documented by: [id number] Sodium Chloride (Nss) 500 mls @ 999 mls/hr IV .Q31M KELL Stop: 12/28/19 22:15 Last Infusion: 12/28/19 22:31 Dose: 0 mls/hr Documented by: [id number] Admin: 12/28/19 21:43 Dose: 999 mls/hr Documented by: [id number] Ioversol (Optiray 320 125ml) 118 ml IV ONCE ONE Stop: 12/28/19 22:55 Last Admin: 12/28/19 22:55 Dose: 1 ml Documented by: [id number] Ketorolac Tromethamine (Ketorolac Tromethamine 15 Mg/Ml Vial) 15 mg IV NOW STA Stop: 12/28/19 21:32 Last Admin: 12/28/19 21:43 Dose: 15 mg Documented by: [id number] Morphine Sulfate (Morphine Sulfate 2 Mg/Ml Carp) 2 mg IV NOW STA Stop: 12/28/19 21:32 Last Admin: 12/28/19 21:43 Dose: 2 mg Documented by: [id number] Ondansetron HCl (Ondansetron Inj 2 Mg/Ml 2 Ml Vial) 4 mg IV NOW STA Stop: 12/28/19 21:33 Last Admin: 12/28/19 21:43 Dose: 4 mg Documented by: [id number] Imaging Data Attestation: I personally reviewed and interpreted this imaging study as follows: My Impression: Chest x-ray: There is no mediastinal widening, no pneumothorax or CHF. I see no free air. Radiologist's Impression: CTA of chest: There was no acute pulmonary embolus. There was a normal caliber of the aorta without dissection. There was an unremarkable appearance of the heart. There was no lung consolidation, no interstitial edema, pneumothorax or pleural effusion. The osseous structures and soft tissues appeared unremarkable. Blood Pressure Blood Pressure Findings: Elevated blood pressure Blood Pressure Disposition: further management by hospitalist Discharge Plan Visit Data Chief Complaint: Chest Pain Stated Complaint: CHEST PAIN, FEELS LIKE STABBING ED Provider: Hector Beltre Discharge Problem: Precordial chest pain, Elevated troponin Patient Disposition: Admitted As Inpatient Condition: Fair Forms Stand Alone Forms: [facility] Prescriptions Prescriptions: No Action calcium carbonate [Tums] 200 mg calcium (500 mg) Tablet,Chewable 400 mg PO BID PRN (Reason: Heartburn) RF: 0 ibuprofen [Advil] 200 mg Tablet 400 mg PO BID PRN (Reason: Pain) RF: 0 omeprazole magnesium [Prilosec OTC] 20 mg Tablet,Delayed Release (Dr/Ec) 20 mg PO DAILY PRN (Reason: Acid Reflux) RF: 0 Referrals Referrals: Liya Jaquez PA-C [Primary Care Provider] -
[2019-12-28 22:09] LABS: Basophils # (auto) 0.04 K/uL (0-0.2); Basophils % (auto) 0.5 %; Eosinophils # (auto) 0.08 K/uL (0-0.5); Eosinophils % (auto) 0.9 %; Hematocrit (blood only) 46.8 % (42-52); Hemoglobin 16.7 g/dL (14.0-18.0); Immature Granulocytes # (auto) 0.01 K/uL (0.00-0.02); Immature Granulocytes % (auto) 0.1 %; Lymphocytes % (auto) 18.7 %; Mean Corpuscular Hemoglobin 32.2 pg (25-34); Mean Corpuscular Hgb Conc 35.7 g/dL (32-36); Mean Corpuscular Volume 90.2 fL (80-100); Mean Platelet Volume 9.9 fL (7.4-10.4); Monocytes # (auto) 0.54 K/uL (0.11-0.59); Monocytes % (auto) 6.3 %; Neutrophils % (auto) 73.5 %; Platelet Count 252 K/uL (130-400); RDW Coefficient of Variation 12.9 % (11.5-14.5); RDW Standard Deviation 42.5 fL (36.4-46.3); Red Blood Count 5.19 M/uL (4.7-6.1); White Blood Count 8.57 K/uL (4.8-10.8)
[2019-12-28 22:14] LABS: D Dimer 350 ug/L FEU (0-500); Partial Thromboplastin Time 28.7 Seconds (21.0-31.0); Prothrombin Time 10.3 Seconds (9.0-12.0)
[2019-12-28 22:19] LABS: Alanine Aminotransferase 53 U/L (12-78); Albumin Level 3.9 gm/dl (3.4-5.0); Aspartate Aminotransferase 27 U/L (15-37); BUN Creatinine Ratio 14.6 (10-20); Blood Urea Nitrogen 16 mg/dl (7-18); Calcium 9.2 mg/dl (8.5-10.1); Carbon Dioxide 31 mmol/L (21-32); Chloride 108 mmol/L (98-107); Est GFR (African American) 85.6; Est GFR (Non-African American) 73.8; Glucose 102 mg/dl (70-99); Lipase 150 U/L (73-393); Potassium 3.7 mmol/L (3.5-5.1); Sodium 145 mmol/L (136-145)
[2019-12-28 22:33] LABS: Albumin Globulin Ratio 1.1 (0.9-2); Alkaline Phosphatase 108 U/L (45-117); Bilirubin,Total 0.5 mg/dl (0.2-1); Globulin 3.7 gm/dl (2.5-4.0); Total Protein 7.6 gm/dl (6.4-8.2); Troponin I 0.064 ng/ml (0-0.045)
[2019-12-28] MEDS ORDERED: OPTIRAY 320 125ml IV ONE (22:54)
[2019-12-28] MEDS ORDERED: ASPIRIN CHEW 324 MG PO STA (23:19)
--- NOTE | 2019-12-29 00:05 | History & Physical Report ---
Date of Service December 29, 2019 Assessment & Plan (1) Precordial chest pain: Precordial chest pain with elevated troponin- The patient will be admitted to telemetry for serial cardiac enzymes, serial EKG's, cardiac rhythm monitoring and a 2-D echocardiogram with Dopplers. Normal EKG He was given aspirin 324 mg in the ED. Aspirin 81 mg daily. Placed on Nitropaste 1 inch anterior chest wall every 6 hours Consult cardiology. Present on Admission?: Yes (2) Elevated troponin: See above Present on Admission?: Yes (3) GERD (gastroesophageal reflux disease): Patient has used omeprazole 20 mg daily PRN. Does not have any reflux at this time. Present on Admission?: Yes History of Present Illness Chief Complaint: The patient presents to the emergency department with complaint of acute onset of substernal chest discomfort, that radiated around to his back, that began shortly after eating supper this evening. Primary Care Provider: Liya Jaquez PA-C shortly after eating supper this evening.The patient is a 54-year-old male with a past medical history including GERD, biliary colic, lumbar spondylosis, lumbar disc herniation and bilateral sacroiliitis. He reports the development of severe epigastric and substernal chest discomfort that radiated around toward his back. He had some nausea briefly associated. He rates the discomfort as severe. This did not feel the same as his reflux. Work-up in the emergency department included laboratories with an abnormal troponin of 0.064, and EKG without acute ST-T changes. Allergies Allergy/AdvReac Type Severity Reaction Status Date / Time acetaminophen [From Vicodin] AdvReac Severe BOWLES, Verified 12/28/19 23:02 GI-UPSET hydrocodone [From Vicodin] AdvReac Severe BOWLES, Verified 12/28/19 23:02 GI-UPSET Home Medications Home Medications Medication Instructions Recorded Confirmed Type calcium carbonate [Tums] 400 mg PO BID PRN 12/28/19 12/28/19 History ibuprofen [Advil] 400 mg PO BID PRN 12/28/19 12/28/19 History omeprazole magnesium [Prilosec OTC] 20 mg PO DAILY PRN 12/28/19 12/28/19 History Past Med/Surg History Medical History Bilateral sacroiliitis Chronic back pain GERD (gastroesophageal reflux disease) Hx of fracture of ankle right - Has had 2 surgeries on ankle Lumbar disc herniation Lumbar radiculitis 90% improved status post L5-S1 interlaminar epidural steroid injections Lumbar spondylosis Olecranon bursitis Spasm of back muscles Surgical History History of ankle surgery right History of back surgery Grade 1 view Mac 3 blade Social History Smoking Status: Never smoker Second Hand Exposure: No; Hx Alcohol Use: No Hx Substance Use: No Preferred Language: Pashto Communication Ability: Effective Visual Impairment: No Limitations Gore Maker Required: No Beliefs That Will Affect Care: None marital status: Current Living Situation: Spouse Feels Safe at Home: Yes Review of Systems Review of Systems: The patient denies palpitations, shortness of breath, dyspnea on exertion, cough, lower extremity swelling, sore throat, fevers, chills, sweats, weight change, fatigue, vomiting, diarrhea , constipation, abdominal pain, pelvic pain, blood in urine or stool, dysuria, urinary frequency or urgency, lightheadedness, dizziness, headache, memory loss, loss of consciousness, rash, abnormal bruising or bleeding, imbalance, focal or generalized weakness, numbness or tingling in arms or legs, generalized arthralgias or myalgias, neck pain, or night sweats. The review of systems is otherwise negative other than for that already noted above, and at least 10 systems have been reviewed. Physical Exam Physical Exam: The patient is awake, alert and oriented 3, well developed and well nourished, normocephalic and atraumatic, lying in bed and in no acute distress. HEENT--PERRL, EOMI, mucous membranes and oropharynx normal. Neck--supple. No JVD. No bruits. Thyroid normal, trachea midline, no adenopathy. Heart--normal S1 and S2. No murmurs, rubs or gallops. Lungs--clear bilaterally, no respiratory distress, no accessory muscle use. Abdomen--normal bowel sounds and soft. Nontender. Nondistended. Extremities--no cyanosis or clubbing. No edema. There are good distal pulses b/l. Dermatologic--normal skin turgor, normal color, no abnormal lymph nodes, no rash. Neurologic--cranial nerves II through XII grossly intact. Rheumatologic--normal range of motion. Psychiatric--normal affect. Results & Data Results & Data ([facility]) Vital Signs (Past 12 Hours) Vital Signs Temp Pulse Pulse Resp BP BP Pulse Ox 12/28/19 23:41 58 L 18 162/97 H 98 12/28/19 20:50 97.9 F 68 18 154/100 H 98 Laboratory Results Laboratory Results WBC 8.57 K/uL (4.8-10.8) 12/28/19 21:43 RBC 5.19 M/uL (4.7-6.1) 12/28/19 21:43 Hgb 16.7 g/dL (14.0-18.0) 12/28/19 21:43 Hct 46.8 % (42-52) 12/28/19 21:43 MCV 90.2 fL (80-100) 12/28/19 21:43 MCH 32.2 pg (25-34) 12/28/19 21:43 MCHC 35.7 g/dL (32-36) 12/28/19 21:43 RDW Std Deviation 42.5 fL (36.4-46.3) 12/28/19 21:43 RDW Coeff of Kaylynn 12.9 % (11.5-14.5) 12/28/19 21:43 Plt Count 252 K/uL (130-400) 12/28/19 21:43 MPV 9.9 fL (7.4-10.4) 12/28/19 21:43 Immature Gran % (Auto) 0.1 % 12/28/19 21:43 Neut % (Auto) 73.5 % 12/28/19 21:43 Lymph % (Auto) 18.7 % 12/28/19 21:43 [place] % (Auto) 6.3 % 12/28/19 21:43 Eos % (Auto) 0.9 % 12/28/19 21:43 Baso % (Auto) 0.5 % 12/28/19 21:43 Neut # (Auto) 6.30 K/uL (1.4-6.5) 12/28/19 21:43 Lymph # (Auto) 1.60 K/uL (1.2-3.4) 12/28/19 21:43 [place] # (Auto) 0.54 K/uL (0.11-0.59) 12/28/19 21:43 Eos # (Auto) 0.08 K/uL (0-0.5) 12/28/19 21:43 Baso # (Auto) 0.04 K/uL (0-0.2) 12/28/19 21:43 Immature Gran # (Auto) 0.01 K/uL (0.00-0.02) 12/28/19 21:43 PT 10.3 Seconds (9.0-12.0) 12/28/19 21:43 INR 1.0 (0.9-1.1) 12/28/19 21:43 APTT 28.7 Seconds (21.0-31.0) 12/28/19 21:43 PTT Ratio 1.0 12/28/19 21:43 D-Dimer 350 ug/L FEU (0-500) 12/28/19 21:43 Sodium 145 mmol/L (136-145) 12/28/19 21:43 Potassium 3.7 mmol/L (3.5-5.1) 12/28/19 21:43 Chloride 108 mmol/L (98-107) H 12/28/19 21:43 Carbon Dioxide 31 mmol/L (21-32) 12/28/19 21:43 Anion Gap 6.0 (3-11) 12/28/19 21:43 BUN 16 mg/dl (7-18) 12/28/19 21:43 Creatinine 1.11 mg/dl (0.6-1.4) 12/28/19 21:43 Est Cr Clr Drug Dosing Not Reportable 12/28/19 21:43 Est GFR ( Amer) 85.6 12/28/19 21:43 Est GFR (Non-Af Amer) 73.8 12/28/19 21:43 BUN/Creatinine Ratio 14.6 (10-20) 12/28/19 21:43 Glucose 102 mg/dl (70-99) H 12/28/19 21:43 Calcium 9.2 mg/dl (8.5-10.1) 12/28/19 21:43 Total Bilirubin 0.5 mg/dl (0.2-1) 12/28/19 21:43 AST 27 U/L (15-37) 12/28/19 21:43 ALT 53 U/L (12-78) 12/28/19 21:43 Alkaline Phosphatase 108 U/L (45-117) 12/28/19 21:43 Troponin I 0.064 ng/ml (0-0.045) H* 12/28/19 21:43 Total Protein 7.6 gm/dl (6.4-8.2) 12/28/19 21:43 Albumin 3.9 gm/dl (3.4-5.0) 12/28/19 21:43 Globulin 3.7 gm/dl (2.5-4.0) 12/28/19 21:43 Albumin/Globulin Ratio 1.1 (0.9-2) 12/28/19 21:43 Lipase 150 U/L (73-393) 12/28/19 21:43 Code Status & VTE Plan Code Status Full code VTE Prophylaxis Plan VTE Prophylaxis will be ordered: Yes PG Care Time/CCT Total # of Minutes Spent Total Time Spent with Patient: Total time spent is greater than 50% in coordination of care (as documented) at patient's floor/unit and/or counseling patient: Coding Level of Care Code 87096 OBS Care - Level 3 Diagnoses Precordial chest pain R07.2 Elevated troponin R79.89 GERD (gastroesophageal reflux disease) K21.9
[2019-12-29] MEDS ORDERED: MoRPHine SULFATE 2 MG/ML CARP IV PRN (01:14)
[2019-12-29] MEDS ORDERED: NITROGLYCERIN SL 0.4 MG/TAB TAB SL PRN (01:14)
[2019-12-29] MEDS ORDERED: ALUMINUM/MAGNESIUM SUSP 30 ML UDC PO PRN (01:14)
[2019-12-29] MEDS ORDERED: MAGNESIUM HYDROXIDE SUSP 30 ML UDC PO PRN (01:14)
[2019-12-29] MEDS ORDERED: ONDANSETRON INJ 2 MG/ML 2 ML VIAL IV PRN (01:14)
[2019-12-29] MEDS: NITROGLYCERIN 2% OINTMENT 30GM TUBE EXT SCH ×2 (02:10→06:11)
[2019-12-29 06:54] LABS: Basophils # (auto) 0.03 K/uL (0-0.2); Basophils % (auto) 0.4 %; Eosinophils # (auto) 0.12 K/uL (0-0.5); Eosinophils % (auto) 1.4 %; Hematocrit (blood only) 45.3 % (42-52); Hemoglobin 15.1 g/dL (14.0-18.0); Immature Granulocytes # (auto) 0.02 K/uL (0.00-0.02); Immature Granulocytes % (auto) 0.2 %; Lymphocytes # (auto) 2.14 K/uL (1.2-3.4); Lymphocytes % (auto) 25.8 %; Mean Corpuscular Hemoglobin 30.6 pg (25-34); Mean Corpuscular Hgb Conc 33.3 g/dL (32-36); Mean Corpuscular Volume 91.7 fL (80-100); Monocytes # (auto) 0.74 K/uL (0.11-0.59); Monocytes % (auto) 8.9 %; Neutrophils # (auto) 5.25 K/uL (1.4-6.5); Neutrophils % (auto) 63.3 %; Platelet Count 227 K/uL (130-400); RDW Coefficient of Variation 13.1 % (11.5-14.5); RDW Standard Deviation 43.7 fL (36.4-46.3); Red Blood Count 4.94 M/uL (4.7-6.1)
[2019-12-29 07:10] LABS: Prothrombin Time 10.9 Seconds (9.0-12.0)
[2019-12-29 07:30] LABS: Albumin Level 3.2 gm/dl (3.4-5.0); BUN Creatinine Ratio 16.4 (10-20); Calcium 8.3 mg/dl (8.5-10.1); Creatinine Clr Calc Pharmacy 101.5 ml/min; Est GFR (African American) 94.8; Est GFR (Non-African American) 81.8; Potassium 3.7 mmol/L (3.5-5.1)
[2019-12-29 07:39] LABS: Albumin Globulin Ratio 1.1 (0.9-2); Bilirubin,Total 0.8 mg/dl (0.2-1); Total Protein 6.2 gm/dl (6.4-8.2); Troponin I 1.43 ng/ml (0-0.045)
[2019-12-29] MEDS: ASPIRIN 81 MG ECTAB PO SCH (07:39)
--- NOTE | 2019-12-29 07:39 | XRay Report ---
XR chest 1V portable HISTORY: Atypical Chest Pain COMPARISON: Chest 07/29/2018. FINDINGS: The lungs are clear. Cardiac silhouette is normal in size. No pleural effusions. No pneumot horax. IMPRESSION: No acute process. ACT 112: Negative or not required by law. Electronically signed by: Jose Harley M.D. 12/29/2019 7:38 AM
--- NOTE | 2019-12-29 07:46 | CT Scan Report ---
CHEST CTA for PULMONARY ARTERIES CT DOSE: 722.34 mGy.cm HISTORY: Mid chest pain. TECHNIQUE: Multiaxial CT images of the chest were performed following the intravenous administration of contrast to evaluate the pulmonary arteries. Maximal intensity projection images were also obtaine d. A dose lowering technique was utilized adhering to the principles of ALARA. COMPARISON STUDY: None. FINDINGS: No filling defects within the pulmonary arteries to suggest pulmonary embolus. Mildly tortu ous distal thoracic aorta. Otherwise, the aorta is normal and caliber with no evidence for dissection . The heart is normal in size. No pleural or pericardial effusions. No fractures within the visualize d osseous structures. No mediastinal or hilar lymphadenopathy. Normal esophagus. Limited views of the upper abdomen demonstrate normal liver and spleen. No pneumothorax. The central airways are patent. 3 mm subpleural nodule on the left major fissure. This is likely benign. Otherwise, lungs are clear. No focal lung consolidations to suggest pneumonia. IMPRESSION: No evidence for pulmonary embolus. ACT 112: Negative or not required by law. Electronically signed by: Jose Harley M.D. 12/29/2019 7:45 AM
[2019-12-29] MEDS ORDERED: HEPARIN SOD 5,000 UNIT/0.5 ML VIAL SQ SCH (09:00)
[2019-12-29] MEDS ORDERED: HEPARIN SODIUM/DEXTROSE 25,000 UNITS/500 ML BAG IV SCH (10:00)
[2019-12-29] MEDS ORDERED: Heparin IV Standard *NO* Bolus IV SCH (10:30)
[2019-12-29] MEDS ORDERED: HEPARIN 25000 UNIT/500 ML D5W IV ONE (10:54)
[2019-12-29] MEDS ORDERED: NiCARDipine HCL INJ 2.5 MG/ML 10 ML AMP ONE (11:15)
[2019-12-29] MEDS ORDERED: HEPARIN (PORCINE) 1000 UNIT/ML 10 ML (CATH LAB USE ONLY) ONE ×2 (11:15→12:37)
[2019-12-29] MEDS ORDERED: fentaNYL citrate 100 MCG/2 ML VIAL ONE ×2 (11:15→12:21)
[2019-12-29] MEDS ORDERED: NITROGLYCERIN/D5W 100MCG/ML 20ML SYR ONE (11:16)
[2019-12-29] MEDS ORDERED: MIDAZOLAM HCL 1 MG/ML 2ML VIAL ONE ×2 (11:16→12:22)
--- NOTE | 2019-12-29 11:22 | Cardiology Consultation ---
Date of Consultation December 29, 2019 Assessment & Plan (1) Non-ST elevation (NSTEMI) myocardial infarction: ASSESSMENT/PLAN: 1. NSTEMI: Presentation consistent with unstable angina and NSTEMI as his troponin is now diagnostic for NM. He is having ongoing chest discomfort concerning for ongoing angina. Recommended urgent cardiac catheterization. Continue aspirin 81 mg daily. Recommend heparin. Risks and benefits of the cardiac catheterization were discussed in detail. He was made aware that CT surgery is not available to facility and he was agreeable to undergo diagnostic coronary angiography and PCI, if deemed appropriate. Recommend high-intensity statin therapy. Check lipid profile. Recommend DHRUV-inhibitor. Will likely hold off on beta-lala given that he is bradycardic at baseline. 2. Disposition: Cardiology will continue to follow. Patient care has been di scussed with primary service. Highly complex medical issues. Thank you for allowing me to participate in the care of your patient. Please call for any other questions or concerns. Sincerely, Noah Goodwin M.D. History of Present Illness Reason for Consultation: Elevated troponin Requesting Physician: Dr. Oglesby Attending Physician: Duke Ortiz, History of Present Illness Mr. Pederson is a very pleasant 54-year-old gentleman with a history significant for exercise induced asthma, GERD, and chronic back pain. Yesterday at approximately 5:30 p.m. he had finished eating supper and 1 outside to mow the lawn on a riding mower. He noticed sharp chest discomfort which he described as intense lasting for approximately 10 minutes. It was substernal and resolved with rest/relaxation. 30 minutes later, it returned however and continued this pattern on and off over the next several hours. Symptoms continued to resolved with rest. At approximately 9:00 p.m. he went to the emergency department after roughly 6 episodes. His ECG on presentation did not exhibit dynamic ST abnormalities. His initial troponin was abnormal at 0.064. He received aspirin 324 mg, nitroglycerin paste, and morphine. He had another 2 episodes in the ER but after his medications, he felt better until approximately midnight when he had another episode of sharp pain. Since then, he has had more of a strange feeling in his chest sometimes described as a pressure that was improving throughout the morning. He does admit however that he has not had a complete resolution of some form of chest discomfort since these episodes began yesterday evening. During our visit earlier this morning, he continued to have this mild discomfort in his chest which was different than his sharp pain. He denies shortness of breath, syncope, diaphoresis, edema, palpitations, or bleeding such as melena, hematochezia, or hematuria. He admits that he has never had the presenting symptoms before. In fact, he would walk for exercise 3-4 miles a day, when his back discomfort would allow him to do so. With his exercise routine, he was not experiencing chest discomfort or shortness of breath. While here, he was continued on aspirin 81 mg daily. A repeat troponin was ordered for this morning and was elevated at 1.43. He did undergo CT angiogram of the chest without PE. Review of systems: As above. Review of systems otherwise negative/unremarkable. Family history: No known premature CAD in first-degree relatives. Maternal grandmother had NM in her 50s and underwent CABG x5. Social history: Has not smoked. No alcohol or drug abuse. Lives at home with his , when the. He has 1 biologic son and a stepdaughter. 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 He was unaccompanied in his room. Allergies Allergy/AdvReac Type Severity Reaction Status Date / Time acetaminophen [From Vicodin] AdvReac Severe BOWLES, Verified 12/28/19 23:02 GI-UPSET hydrocodone [From Vicodin] AdvReac Severe BOWLES, Verified 12/28/19 23:02 GI-UPSET Home Medications Home Medications Medication Instructions Recorded Confirmed Type calcium carbonate [Tums] 400 mg PO BID PRN 12/28/19 12/28/19 History ibuprofen [Advil] 400 mg PO BID PRN 12/28/19 12/28/19 History omeprazole magnesium [Prilosec OTC] 20 mg PO DAILY PRN 12/28/19 12/28/19 History Patient History Medical History Bilateral sacroiliitis Chronic back pain GERD (gastroesophageal reflux disease) Hx of fracture of ankle right - Has had 2 surgeries on ankle Lumbar disc herniation Lumbar radiculitis 90% improved status post L5-S1 interlaminar epidural steroid injections Lumbar spondylosis Olecranon bursitis Spasm of back muscles Surgical History History of ankle surgery right History of back surgery Grade 1 view Mac 3 blade Social History Smoking Status: Never smoker Second Hand Exposure: No; Do You Dip or Chew Tobacco: No; Hx Alcohol Use: Yes Alcohol type: beer Hx Substance Use: No Preferred Language: Czech Communication Ability: Effective Visual Impairment: No Limitations Barber Required: No Beliefs That Will Affect Care: None marital status: Current Living Situation: Family Other Information That Helps Us Care for You: No Feels Safe at Home: Yes Safety Concerns: Feels Safe At This Time Physical Exam Physical Exam: Gen.: No acute distress. Alert and oriented. HEENT: Anicteric sclera. Neck: No JVD. No bruits. Normal carotid upstrokes bilaterally. Cardiac: PMI was nondisplaced. No ventricular heave. Bradycardic but regular in the 50s. Normal S1-S2. No murmurs, rubs, or gallops. Pulmonary: Clear to auscultation bilaterally without wheezes, rales, or rhonchi. Abdomen: Soft, nontender, nondistended, with normoactive bowel sounds. No bruits noted. Extremities: 2+ radial pulses bilaterally. 2+ posterior tibialis pulses bilaterally. No edema or cyanosis. No palpable cords. Psychiatric: Affect appears appropriate. Results & Data ([facility]) Vital Signs (Past 12 Hours) Vital Signs Temp Pulse Pulse Resp BP BP Pulse Ox 12/29/19 09:06 46 L 12/29/19 09:02 12/29/19 07:47 36.5 C 55 L 16 121/71 96 12/29/19 03:51 36.5 C 53 L 16 121/71 95 12/29/19 01:14 50 L 18 100 12/29/19 00:44 54 L 18 150/99 H 96 12/28/19 23:41 58 L 18 162/97 H 98 Pulse Ox 12/29/19 09:06 12/29/19 09:02 96 12/29/19 07:47 12/29/19 03:51 12/29/19 01:14 12/29/19 00:44 12/28/19 23:41 Laboratory Results Laboratory Results - last 24 hr 12/28/19 12/28/19 12/28/19 21:43 21:43 21:43 WBC 8.57 RBC 5.19 Hgb 16.7 Hct 46.8 MCV 90.2 MCH 32.2 MCHC 35.7 RDW Std Deviation 42.5 RDW Coeff of Kaylynn 12.9 Plt Count 252 MPV 9.9 Immature Gran % (Auto) 0.1 Neut % (Auto) 73.5 Lymph % (Auto) 18.7 [place] % (Auto) 6.3 Eos % (Auto) 0.9 Baso % (Auto) 0.5 Neut # (Auto) 6.30 Lymph # (Auto) 1.60 [place] # (Auto) 0.54 Eos # (Auto) 0.08 Baso # (Auto) 0.04 Immature Gran # (Auto) 0.01 PT 10.3 INR 1.0 APTT 28.7 PTT Ratio 1.0 D-Dimer 350 Sodium 145 Potassium 3.7 Chloride 108 H Carbon Dioxide 31 Anion Gap 6.0 BUN 16 Creatinine 1.11 Est Cr Clr Drug Dosing Not Reportable Est GFR ( Amer) 85.6 Est GFR (Non-Af Amer) 73.8 BUN/Creatinine Ratio 14.6 Glucose 102 H Calcium 9.2 Total Bilirubin 0.5 AST 27 ALT 53 Alkaline Phosphatase 108 Troponin I 0.064 H* Total Protein 7.6 Albumin 3.9 Globulin 3.7 Albumin/Globulin Ratio 1.1 Lipase 150 12/29/19 12/29/19 12/29/19 06:32 06:32 06:32 WBC 8.30 RBC 4.94 Hgb 15.1 Hct 45.3 MCV 91.7 MCH 30.6 MCHC 33.3 RDW Std Deviation 43.7 RDW Coeff of Kaylynn 13.1 Plt Count 227 MPV 10.0 Immature Gran % (Auto) 0.2 Neut % (Auto) 63.3 Lymph % (Auto) 25.8 [place] % (Auto) 8.9 Eos % (Auto) 1.4 Baso % (Auto) 0.4 Neut # (Auto) 5.25 Lymph # (Auto) 2.14 [place] # (Auto) 0.74 H Eos # (Auto) 0.12 Baso # (Auto) 0.03 Immature Gran # (Auto) 0.02 PT 10.9 INR 1.0 APTT PTT Ratio D-Dimer Sodium 143 Potassium 3.7 Chloride 111 H Carbon Dioxide 24 Anion Gap 8.0 BUN 17 Creatinine 1.02 Est Cr Clr Drug Dosing 101.5 Est GFR ( Amer) 94.8 Est GFR (Non-Af Amer) 81.8 BUN/Creatinine Ratio 16.4 Glucose 87 Calcium 8.3 L Total Bilirubin 0.8 AST 24 ALT 42 Alkaline Phosphatase 79 Troponin I 1.430 H* Total Protein 6.2 L Albumin 3.2 L Globulin 3.0 Albumin/Globulin Ratio 1.1 Lipase Diagnostic Findings Telemetry personally reviewed: Sinus rhythm. No sustained arrhythmia. ECGs personally reviewed: ECG 12/28/2019: Sinus rhythm 65 beats per minute. Normal ECG. ECG 12/29/2019: Sinus bradycardia 52 beats per minute. Incomplete RBBB. CTA chest 12/28/2019: No evidence for pulmonary embolus. No aortic dissection. Echo 12/29/2019: Echo images were personally reviewed and on preliminary review, LV systolic function was normal without obvious wall motion abnormality. Formal review to follow. Medications Administered Current Inpatient Medications Al Hydrox/Mg Hydrox/Simethicone (Aluminum/Magnesium Susp 30 Ml Udc) 15 ml PO Q4H PRN PRN Reason: Dyspepsia Stop: 01/28/20 01:13 Aspirin (Aspirin 81 Mg Ectab) [facility] [place] Stop: 01/28/20 08:59 Last Admin: 12/29/19 07:39 Dose: 81 mg Documented by: Heparin Sodium/Dextrose (Heparin Sodium/Dextrose) 25,000 units in 500 mls @ 32 mls/hr IV .[id number] [facility], 1928–1983; Protocol Stop: 01/28/20 09:59 Magnesium Hydroxide (Magnesium Hydroxide Susp 30 Ml Udc) 30 ml PO Q12H PRN PRN Reason: Constipation Stop: 01/28/20 01:13 Morphine Sulfate (Morphine Sulfate 2 Mg/Ml Carp) 2 mg IV Q30M PRN PRN Reason: Chest Pain Stop: 01/12/20 01:13 Last Admin: 12/29/19 07:36 Dose: 2 mg Documented by: Nitroglycerin (Nitroglycerin Sl 0.4 Mg/Tab Tab) 0.4 mg SL UD PRN PRN Reason: Chest Pain Stop: 01/28/20 01:13 Nitroglycerin (Nitroglycerin 2% Ointment 30gm Tube) 1 inch EXT Q6 KELL Stop: 01/28/20 01:13 Last Admin: 12/29/19 06:11 Dose: Not Given Documented by: Ondansetron HCl (Ondansetron Inj 2 Mg/Ml 2 Ml Vial) 4 mg IV Q6H PRN PRN Reason: Nausea Stop: 01/28/20 01:13 PG Care Time/CCT Total # of Minutes Spent Total Time Spent with Patient: Total time spent is greater than 50% in coordination of care (as documented) at patient's floor/unit and/or counseling patient: Coding Level of Care Code 45389 Inpt Consult Level 5 Diagnoses Non-ST elevation (NSTEMI) myocardial infarction I21.4
--- NOTE | 2019-12-29 11:23 | Pre Anesthesia Assessment ---
Date of Service December 29, 2019 Pre Sedation Assessment Vital Signs Temp Pulse Pulse Resp BP BP Pulse Ox 12/29/19 09:06 46 L 12/29/19 09:02 12/29/19 07:47 36.5 C 55 L 16 121/71 96 12/29/19 03:51 36.5 C 53 L 16 121/71 95 12/29/19 01:14 50 L 18 100 12/29/19 00:44 54 L 18 150/99 H 96 12/28/19 23:41 58 L 18 162/97 H 98 12/28/19 20:50 36.6 C 68 18 154/100 H 98 Pulse Ox 12/29/19 09:06 12/29/19 09:02 96 12/29/19 07:47 12/29/19 03:51 12/29/19 01:14 12/29/19 00:44 12/28/19 23:41 12/28/19 20:50 Cardiovascular + bradycardic Respiratory normal respiratory effort, lungs clear to auscultation Pre-Sedation Airway Assessment Smoking Status: Never smoker Hx Sleep Apnea: No Short, Thick Neck: No Thyromental Distance: > or= 3.5 Finger Breadths Oral Cavity: + WNL Mallampati Class: II ASA: ASA3 NPO Status Date of Last Intake of Fluids: 12/29/19 Time of Last Intake of Fluids: 07:00 Date of Last Intake of Solid Food: 12/29/19 Time of Last Intake of Solid Foods: 07:00 Last Intake of Solids Comment: having on going symptoms, prompting cath now Procedure Planning Contraindications for Sedation: none Current Medications Reviewed: Yes Notes The planned sedation has been discussed with the patient. Informed Consent was obtained. I have identified the patient, determined the appropriateness of sedation and have assessed the patient immediately prior to the procedure. All medicine(s) and interventions are by my order.
--- NOTE | 2019-12-29 11:37 | History & Physical Bridge Note ---
Date of Service December 29, 2019 History & Physical Bridge Note I have examined the patient, reviewed the History & Physical and in the interval since the performance of the History & Physical I have noted the following changes of clinical significance: Trop elevated to 1.43 from 0.064 on admission. Repeat pending 12:00 Patient evaluated and continued to have chest pain, relieved with morphine, and described it has discomfort/burning across his precordium which started last night on the workforce development assistant following supper. Significant cardiac history maternal grandmother's side where everyone needed CABG. ECHO pending from this morning. Repeated EKG which shows sinus sushant 52bpm (had been running sinus sushant on tele with drop to low of 38 and 5 beat run PVCs around 5am this morning). Heparin gtt ordered Discussed with cardiology --> plans for cardiac catheterization this morning
--- NOTE | 2019-12-29 12:06 | Cardiac Catheterization ---
[facility] Data: Hiv Nurse Cardiac Status Clinical evaluation leading to the procedure CAD Presenation: Non STEMI Anginal Classification: CCS IV Heart Failure: No Cardiogenic Shock within 24 Hours: No Cardiac Arrest within 24 Hours: No Imaging Studies Past 6 Months: No Stress Studies Past 6 Months: No Standard Exercise Test: No Stress Echocardiogram: No Stress Testing w/SPECT MPI: No Cardiac CTA: No Coronary Anatomy Dominant: Right Left Ventricular Angiography EF (%): n/a Diagnostic Physicians Name: Jimenez Goodwin MD Status: Urgent (ongoing symptoms) Closure Device Percutaneous Entry Location: Radial Closure Device: Radial Band Recommendations: PCI without planned CABG Cardiac Cath Procedure Full Procedure Date December 29, 2019 Pre-Procedure Diagnosis Pre-Procedure Diagnosis: Non STEMI (Presented with NSTEMI and continuing angina. Cardiac catheterization recommended.) AUC Score AUC Score: 9 Post-Procedure Diagnosis Post-Procedure Diagnosis: Severe CAD and Elevated Intracardiac Pressures Procedure(s) Performed Procedure(s) Performed: Coronary Angiography and Left Heart Cath Chemist Pharmaceutical Jimenez Goodwin MD Traffic Monitor Specialist(s) Domenic Gomez Estimated Blood Loss Estimated Blood Loss: < 20 ml Medication(s) Medication(s): Fentanyl, Heparin, Lidocaine 1%, Nicardipine and Versed Summary of Findings Procedures: 1. Coronary angiography 2. Left heart catheterization 3. Moderate sedation Coronary angiography: 1. Left main coronary artery: LMCA short but large in caliber. No significant CAD. 2. Left anterior descending: LAD extends to the apex. Mid LAD 50 to 60%. Large D1. MARK-3 flow. 3. Circumflex: The circumflex is a large-caliber vessel proximal to mid and then extends distally as a small caliber vessel. Large caliber OM1. Large caliber OM 2. Mid OM2 99% stenosis. MARK-3 flow. 4. Right coronary artery: RCA is large and dominant. No significant CAD within the RCA, PDA, RPL branches. Left heart catheterization: 1. Left ventriculography is not performed. 2. No significant aortic stenosis. Peak to peak gradient across aortic valve is 0. 3. Moderately elevated LVEDP; 20 mmHg. Moderate sedation: 1. Sedation start time: 11:35 AM 2. Sedation end time: 12 PM Impression: 1. Severe CAD involving large caliber OM 2. 2. Moderate CAD involving mid LAD. 3. Moderately elevated left-sided filling pressure. 4. No significant aortic stenosis. Plan: 1. Dr. Neumann of interventional cardiology was asked to review imaging to consider PCI of OM 2. 2. Risk factor modification. Hemodynamics Rest Ao:: 122/75 Final Ao: 124/79 LV: 127/720 Recommendations Recommendations: PCI without planned CABG Specimens Specimens: None Radiation Exposure (mGy) 694 mGy. Fluoro time 2.3 min. Contrast (mls) 30 ml Procedural Complication(s) None Disposition remains in feed mill lab technician for PCI I attest to the content of the Intraoperative Record and any orders documented therein. Any exceptions are noted below. [facility] Card Cath Procedure Codes Cardiac Catheterization Procedure 1: Cardiovascular Cath Procedures: 59599 Coronaries and LHC (+/-LV) Moderate Sedation Procedure 1: Sedation/Anesthesia: 73639 Mod Sedation by the same physician;Init15 Min Child Age 5 & Up Procedure 2: Sedation/Anesthesia: 21887 Mod Sedation by the same physician; Ea [id number] Minutes PG Care Time/CCT Total # of Minutes Spent Total Time Spent with Patient: Total time spent is greater than 50% in coordination of care (as documented) at patient's floor/unit and/or counseling patient:
[2019-12-29] MEDS ORDERED: ADENOSINE IV SOLN 3 MG/ML 20 ML VIAL IV ONE (12:24)
[2019-12-29] MEDS ORDERED: TICAGRELOR 90 MG TAB PO ONE (13:00)
--- NOTE | 2019-12-29 13:45 | Post Anesthesia Assessment ---
Date of Service December 29, 2019 Post Sedation Assessment Vital Signs Temp Pulse Pulse Resp BP BP Pulse Ox 12/29/19 09:06 46 L 12/29/19 09:02 12/29/19 07:47 97.7 F 55 L 16 121/71 96 12/29/19 03:51 97.7 F 53 L 16 121/71 95 12/29/19 01:14 50 L 18 100 12/29/19 00:44 54 L 18 150/99 H 96 12/28/19 23:41 58 L 18 162/97 H 98 12/28/19 20:50 97.9 F 68 18 154/100 H 98 Pulse Ox 12/29/19 09:06 12/29/19 09:02 96 12/29/19 07:47 12/29/19 03:51 12/29/19 01:14 12/29/19 00:44 12/28/19 23:41 12/28/19 20:50 Recovery Score Activity: Moves 4 extremities Respiration: Deep Breath/Cough Circulation: +/-20% PreAnes Value Consciousness: Fully Awake Oxygen Saturation: O2 needed for >90% Discharge Sedation Level of Care: Fast Track Phase II Post Sedation Plan On clinical assessment, the patient appears to have tolerated the sedation without complications. Patient is recovering as anticipated. Patient will continue to be monitored by nursing and may be discharged when sedation discharge criteria are met per below protocol. Upon Completions of procedure up to 15 minutes continue every 5 minute vital signs and the P.A.R. score; then discharge to a Phase I or Fast Track to Phase II per the following guidelines: * Discharge Patient to appropriate Phase II area if PAR is 8 or greater or return to pre- procedure baseline. The post - procedure orders will be as directed. * If PAR score is less than 8 or not return to pre-procedure baseline then patient will follow Phase I monitoring till PAR is reached for Phase II. The Phase I may be done in procedure room or may call to secure a Phase I area. * If naloxone or flumazenil are used for reversal, hold in Phase I for continued monitoring from when last reversal dose was given for a minimum of 60 minutes or longer pending the nurse and/or physician discretion of patient condition before discharge to Phase II. Please call the Sedation Physician to re-evaluate and complete post-note for discharge to Phase II area. Do NOT discharge from procedure sedation or Phase 1 until post- sedation evaluation note is complete by procedure /sedation MD Sedation Discharge Instructions to be given to the patient at discharge to home.
[2019-12-29 13:49] LABS: Chol HDL Ratio 5; Cholesterol 149 mg/dl (0-200); HDL Cholesterol 28 mg/dl; LDL Cholesterol Calculated 98 mg/dl; Triglycerides 115 mg/dl (0-150); VLDL Cholesterol 23 mg/dl
--- NOTE | 2019-12-29 13:49 | Cardiac Catheterization ---
[facility] Data: Ordnance Technician Cardiac Status Clinical evaluation leading to the procedure CAD Presenation: Non STEMI Anginal Classification: CCS IV Heart Failure: No Cardiogenic Shock within 24 Hours: No Cardiac Arrest within 24 Hours: No Imaging Studies Past 6 Months: Yes Stress Studies Past 6 Months: No Diagnostic Physicians Name: Haseeb Neumann MD Status: Elective Closure Device Percutaneous Entry Location: Radial Closure Device: Radial Band Recommendations: PCI without planned CABG PCI Indication: PCI for high risk Non-TESHA Lesion Segment Name: mid OM2 Culprit Artery: Yes Stenosis Prior to Rx (%): 99 Chronic Total Occlusion: No IVUS: No FFR: No Pre-Procedure MARK Flow: 3 Previously Treated Lesion: No Lesion Complexity: Non-High/Non-C Lesion Length (mm): 15 Thrombus Present: Yes Bifurcation Lesion: No Guidewire Across Lesion: Stenosis Post-Procedure (%): 0 Post-Procedure MARK Flow: 3 Devices(s) Deployed: Yes Yes Lesion #2 Segment Name: mid LAD Culprit Artery: No Stenosis Prior to Rx (%): 70 Chronic Total Occlusion: No IVUS: Yes FFR: Yes Ratio: less than or equal to 0.75% Pre-Procedure MARK Flow: 3 Previously Treated Lesion: No Lesion Complexity: Non-High/Non-C Lesion Length (mm): 15 Thrombus Present: No Bifurcation Lesion: Yes Guidewire Across Lesion: Yes Stenosis Post-Procedure (%): 0 Post-Procedure MARK Flow: 3 Devices(s) Deployed: Yes Intraprocedure Events Significant Disection: No Perforation: No Cardiac Cath Procedure Full Procedure Date December 29, 2019 Pre-Procedure Diagnosis Pre-Procedure Diagnosis: Non STEMI (Presented with NSTEMI and continuing angina. Cardiac catheterization recommended.) AUC Score AUC Score: 8 Post-Procedure Diagnosis Post-Procedure Diagnosis: Severe CAD and Successful PCI Procedure(s) Performed Procedure(s) Performed: Coronary Angiography, Drug Eluting Stent, IVUS and Fractional Flow [place] Ret[employer] Manager Haseeb Neumann MD Customs Director(s) Domenic Gomez Estimated Blood Loss Estimated Blood Loss: < 20 ml Medication(s) Medication(s): Fentanyl, Heparin, Lidocaine 1%, Nicardipine, Nitroglycerin and Versed Medication(s): Ticagrelor Summary of Findings Indication: High risk NSTEMI Access: 6 Fr slender right radial artery Catheters: EBU 3.5 guide Findings: For full details of patient's coronary angiography please see cath report dictated by Dr. Goodwin. Briefly, patient found to have multi-vessel disease including a 95 % stenosis involving OM 2. Also noted to have intermediate disease in mid LAD. Decision to proceed with PCI of OM and FFR of LAD. -- PCI -- Antithrombotic therapy: Heparin, ticagrelor Procedure: Left main cannulated with EBU 3.5 guide Lighting Adviser 50 wire passed across lesion into distal OM OM lesion predilated with 2.5 compliant balloon Dilated lesion stented with 2.75 x 18 mm Raoul drug-eluting stent Stent post-dilated with 3.0 noncompliant balloon IC vasodilators administered for spasm At least moderate residual disease proximal to stent and second overlapping stent placed (3.0 x 15 mm Raoul) Post procedure MARK 3 flow, stent well expanded with minimal residual stenosis and no apparent cardiac complications. Lighting Adviser 50 wire removed from OM and placed into distal LAD FFR catheter placed across mid LAD lesion Pd/Pa 0.86 FFR 0.75 IVUS used to assess extent of disease, degree of calcification. Plaque after diagonal mildly calcified, 75% stenosis, MLA 2.7 mm Mid LAD stented with 3.5 x 18 mm Raoul drug-eluting stent Stent postdilated with 3.75 NC Repeat IVUS showed well apposed stent with no apparent edge complications. Underexpanded in the midsegment and postdilated again with 4.0 NC to high atmospheres Post procedure MARK 3 flow, stent well expanded with minimal residual stenosis and no apparent cardiac complications. Arterial Closure: TR band Summary: 1. Multivessel coronary artery disease 99% acute mid OM 2 60 to 70% mid LAD (significant by FFR 0.75) 2. Successful PCI of mid OM 2 with 2 overlapping drug-eluting stents (3.0 x 15, 2.75 x 18 mm Raoul). 3. Successful PCI of mid LAD with single drug-eluting stent (3.5 x 18 mm Franklin; postdilated with 4.0 NC). Recommendations: To PCU for continued monitoring Loaded with ticagrelor 180 mg in outside laborer Continue dual-antiplatelet therapy for at least 1 year Continue statin, and ASCVD risk factor modification Consult cardiac Rehab Hemodynamics Rest Ao:: 136/86/108 Final Ao: 116/82/99 LV: -- Recommendations Recommendations: PCI without planned CABG Specimens Specimens: None Radiation Exposure (mGy) 3431 Contrast (mls) 150 Fluids (cc crystalloids) Fluids (cc crystalloids): 199 Drains Drains: none Anesthesia moderate Procedural Complication(s) None Disposition PCU I attest to the content of the Intraoperative Record and any orders documented therein. Any exceptions are noted below. [facility] Card Cath Procedure Codes Cardiac Catheterization Procedure 1: Cardiovascular Cath Procedures: 98717 (Doppler) Pressure Wire Therapeutic Services & Ancillary Proc Procedure 1: Cardiovascular Tx and Anc Procedures: 77228 IV Ultrasound (Coronary or Graft) Moderate Sedation Procedure 1: Sedation/Anesthesia: 50767 Mod Sedation by the same physician; Ea [id number] Minutes Stenting Procedure 1: Cardiovascular Stent Procedures: 74568 Perc transcatheter placement of intracoronary stent(s), with ang Procedure 2: Cardiovascular Stent Procedures: 17124 Ea addl branch of a major coronary artery PG Care Time/CCT Total # of Minutes Spent Total Time Spent with Patient: Total time spent is greater than 50% in coordination of care (as documented) at patient's floor/unit and/or counseling patient:
[2019-12-29] MEDS ORDERED: SODIUM CHLORIDE 0.9% 1000ML 1,000 ML IV SCH (14:00)
--- NOTE | 2019-12-29 14:13 | XCELERA ---
[id number]
[2019-12-29] MEDS: ATORVASTATIN 40 MG TAB PO SCH (15:30)
[2019-12-29] MEDS: lisinopriL 5 MG TAB PO SCH (15:31)
[2019-12-29] MEDS: TICAGRELOR 90 MG TAB PO SCH (22:57)
--- NOTE | 2019-12-30 06:27 | Electrocardiogram Report ---
Test Reason : Blood Pressure : / mmHG Vent. Rate : 065 BPM Atrial Rate : 065 BPM P-R Int : 170 ms QRS Dur : 110 ms QT Int : 412 ms P-R-T Axes : 029 004 044 degrees QTc Int : 428 ms Normal sinus rhythm Normal ECG When compared with ECG of 28-DEC-2019 20:56, No significant change was found Confirmed by Jimenez Goodwin ([id number]) on 12/30/2019 6:26:41 AM Referred By: REFERRED SELF Confirmed By:Jimenez Goodwin
--- NOTE | 2019-12-30 06:44 | Electrocardiogram Report ---
Test Reason : Blood Pressure : / mmHG Vent. Rate : 052 BPM Atrial Rate : 052 BPM P-R Int : 170 ms QRS Dur : 112 ms QT Int : 434 ms P-R-T Axes : 036 050 067 degrees QTc Int : 403 ms Sinus bradycardia Incomplete right bundle branch block Borderline ECG When compared with ECG of 28-DEC-2019 20:58, Incomplete right bundle branch block is now Present Confirmed by Jimenez Goodwin ([id number]) on 12/30/2019 6:44:04 AM Referred By: REFERRED SELF Confirmed By:Jimenez Goodwin
[2019-12-30 07:06] LABS: Basophils # (auto) 0.03 K/uL (0-0.2); Basophils % (auto) 0.3 %; Eosinophils # (auto) 0.11 K/uL (0-0.5); Eosinophils % (auto) 1.1 %; Hematocrit (blood only) 43.7 % (42-52); Hemoglobin 15.2 g/dL (14.0-18.0); Immature Granulocytes # (auto) 0.02 K/uL (0.00-0.02); Immature Granulocytes % (auto) 0.2 %; Lymphocytes # (auto) 1.78 K/uL (1.2-3.4); Mean Corpuscular Hemoglobin 31.3 pg (25-34); Mean Corpuscular Hgb Conc 34.8 g/dL (32-36); Mean Corpuscular Volume 90.1 fL (80-100); Mean Platelet Volume 9.9 fL (7.4-10.4); Monocytes # (auto) 0.84 K/uL (0.11-0.59); Monocytes % (auto) 8.5 %; Neutrophils # (auto) 7.12 K/uL (1.4-6.5); Neutrophils % (auto) 71.9 %; Platelet Count 203 K/uL (130-400); RDW Coefficient of Variation 12.9 % (11.5-14.5); RDW Standard Deviation 42.2 fL (36.4-46.3); Red Blood Count 4.85 M/uL (4.7-6.1)
[2019-12-30] MEDS: NITROGLYCERIN 2% OINTMENT 30GM TUBE EXT SCH (07:21)
[2019-12-30 07:27] LABS: Partial Thromboplastin Ratio 1.1; Partial Thromboplastin Time 29.4 Seconds (21.0-31.0); Prothrombin Time 10.7 Seconds (9.0-12.0)
[2019-12-30 07:41] LABS: Albumin Level 3.3 gm/dl (3.4-5.0); Calcium 8.7 mg/dl (8.5-10.1); Creatinine Clr Calc Pharmacy 96.8 ml/min; Est GFR (African American) 91.5; Magnesium 2.2 mg/dl (1.8-2.4); Potassium 3.9 mmol/L (3.5-5.1)
[2019-12-30 07:44] LABS: Albumin Globulin Ratio 1.1 (0.9-2); Bilirubin,Total 0.8 mg/dl (0.2-1); Globulin 2.9 gm/dl (2.5-4.0); Total Protein 6.2 gm/dl (6.4-8.2)
[2019-12-30 07:53] LABS: Estimated Average Glucose 97 mg/dl
[2019-12-30] MEDS: ATORVASTATIN 40 MG TAB PO SCH (08:04)
[2019-12-30] MEDS: lisinopriL 5 MG TAB PO SCH (08:04)
[2019-12-30] MEDS: TICAGRELOR 90 MG TAB PO SCH (08:04)
[2019-12-30] MEDS: ASPIRIN 81 MG ECTAB PO SCH (08:04)
--- NOTE | 2019-12-30 11:27 | Cardiology Progress Note ---
Date of Service December 30, 2019 Assessment & Plan (1) Non-ST elevation (NSTEMI) myocardial infarction: (2) CAD (coronary artery disease): (3) S/P coronary artery stent placement: (4) Dyslipidemia: ASSESSMENT/PLAN: 1. NSTEMI: Culprit vessel was circumflex OM 2. He underwent PCI. Continue aspirin 81 mg daily indefinitely. Continue Brilinta for at least 1 year. Continue high-intensity statin therapy and DHRUV-inhibitor. Beta-lala has not been initiated due to resting bradycardia. Cardiac rehabilitation recommended. 2. CAD s/p OM2 and LAD PCI: No further angina. He does have some atypical chest pain which has been present since PCI, but completely different than prior angina. ECG unremarkable. Continue medical therapy as noted above. 911 for angina that does not resolve within 5 minutes of nitroglycerin. Recommend nitroglycerin prescription on discharge. 3. Dyslipidemia: LDL not optimal in the setting of CAD. Continue high- intensity statin therapy which was initiated during this hospital stay. We discussed the importance of Mediterranean diet regular cardiovascular exercise home once recovered from his NH. 4. Disposition: Follow-up with cardiology office in 1-2 weeks. Cardiac rehab recommended. He can be discharged after 48 hours from presentation if he continues to do well without any setbacks. Plan of care discussed with Dr. Ortiz of the primary hospitalist service. Admission and Anticipated Discharge Date Admission Date: December 29, 2019 Subjective He has not had any further angina. He has had a hammer/ache sensation in his chest throughout the hospital stay. It was present yesterday after PCI and has improved this morning. He ambulated in the hallway without angina or shortness of breath. He denies palpitations, syncope, near-syncope, or edema. He has not had any significant issues with his right radial cath site following TR band removal. He was alone in his hospital room. He initially wanted to do cardiac rehab with a local gym with a head athletic trainer/strength coach that he is friends with. He has since talked to this person and they recommended formal cardiac rehab, and thus he is now interested in that. Review of systems: As above. Physical Exam Physical Exam: Gen.: No acute distress. Alert and oriented. HEENT: Anicteric sclera. Neck: No JVD. Cardiac: No ventricular heave. Bradycardic but regular in the upper 50s. Normal S1-S2. No murmurs, rubs, or gallops. Pulmonary: Clear to auscultation bilaterally without wheezes, rales, or rhonchi. Abdomen: Soft, nontender, nondistended, with normoactive bowel sounds. No bruits noted. Extremities: 2+ radial pulses bilaterally. Right radial cath site is clean, dry, and intact without erythema or discharge. No hematoma. 2+ posterior tibialis pulses bilaterally. No edema or cyanosis. Psychiatric: Affect appears appropriate. Results & Data ([facility]) Vital Signs (Past 12 Hours) Vital Signs Temp Pulse Pulse Pulse Resp BP BP 12/30/19 11:12 36.5 C 59 L 62 18 127/88 146/92 H 12/30/19 11:09 36.5 C 62 18 146/92 H 12/30/19 08:00 57 L 12/30/19 07:07 36.8 C 61 18 127/88 12/30/19 03:36 36.8 C 59 L 18 144/90 H 12/30/19 00:11 70 12/30/19 00:04 36.8 C 59 L 16 144/93 H Pulse Ox 12/30/19 11:12 97 12/30/19 11:09 97 12/30/19 08:00 12/30/19 07:07 95 12/30/19 03:36 97 12/30/19 00:11 12/30/19 00:04 96 Laboratory Results Laboratory Results - last 24 hr 12/29/19 12/29/19 12/29/19 06:32 12:34 13:01 WBC RBC Hgb Hct MCV MCH MCHC RDW Std Deviation RDW Coeff of Kaylynn Plt Count MPV Immature Gran % (Auto) Neut % (Auto) Lymph % (Auto) Kimball % (Auto) Eos % (Auto) Baso % (Auto) Neut # (Auto) Lymph # (Auto) Kimball # (Auto) Eos # (Auto) Baso # (Auto) Immature Gran # (Auto) PT INR APTT PTT Ratio Activ Coag Time Kaolin 230 H 263 H Sodium Potassium Chloride Carbon Dioxide Anion Gap BUN Creatinine Est Cr Clr Drug Dosing Est GFR ( Amer) Est GFR (Non-Af Amer) BUN/Creatinine Ratio Glucose Estimat Average Glucose Hemoglobin A1c Calcium Magnesium Total Bilirubin AST ALT Alkaline Phosphatase Troponin I Total Protein Albumin Globulin Albumin/Globulin Ratio Triglycerides 115 Cholesterol 149 LDL Cholesterol, Calc 98 VLDL Cholesterol, Calc 23 HDL Cholesterol 28 Cholesterol/HDL Ratio 5 12/29/19 12/29/19 12/30/19 14:15 19:18 06:44 WBC RBC Hgb Hct MCV MCH MCHC RDW Std Deviation RDW Coeff of Kaylynn Plt Count MPV Immature Gran % (Auto) Neut % (Auto) Lymph % (Auto) Kimball % (Auto) Eos % (Auto) Baso % (Auto) Neut # (Auto) Lymph # (Auto) Kimball # (Auto) Eos # (Auto) Baso # (Auto) Immature Gran # (Auto) PT INR APTT PTT Ratio Activ Coag Time Kaolin Sodium Potassium Chloride Carbon Dioxide Anion Gap BUN Creatinine Est Cr Clr Drug Dosing Est GFR ( Amer) Est GFR (Non-Af Amer) BUN/Creatinine Ratio Glucose Estimat Average Glucose 97 Hemoglobin A1c 5.0 Calcium Magnesium Total Bilirubin AST ALT Alkaline Phosphatase Troponin I 1.260 H* 1.480 H* Total Protein Albumin Globulin Albumin/Globulin Ratio Triglycerides Cholesterol LDL Cholesterol, Calc VLDL Cholesterol, Calc HDL Cholesterol Cholesterol/HDL Ratio 12/30/19 12/30/19 12/30/19 06:44 06:44 06:44 WBC 9.90 RBC 4.85 Hgb 15.2 Hct 43.7 MCV 90.1 MCH 31.3 MCHC 34.8 RDW Std Deviation 42.2 RDW Coeff of Kaylynn 12.9 Plt Count 203 MPV 9.9 Immature Gran % (Auto) 0.2 Neut % (Auto) 71.9 Lymph % (Auto) 18.0 Kimball % (Auto) 8.5 Eos % (Auto) 1.1 Baso % (Auto) 0.3 Neut # (Auto) 7.12 H Lymph # (Auto) 1.78 Kimball # (Auto) 0.84 H Eos # (Auto) 0.11 Baso # (Auto) 0.03 Immature Gran # (Auto) 0.02 PT 10.7 INR 1.0 APTT 29.4 PTT Ratio 1.1 Activ Coag Time Kaolin Sodium 141 Potassium 3.9 Chloride 110 H Carbon Dioxide 23 Anion Gap 8.0 BUN 16 Creatinine 1.05 Est Cr Clr Drug Dosing 96.8 Est GFR ( Amer) 91.5 Est GFR (Non-Af Amer) 79.0 BUN/Creatinine Ratio 15.0 Glucose 91 Estimat Average Glucose Hemoglobin A1c Calcium 8.7 Magnesium 2.2 Total Bilirubin 0.8 AST 44 H ALT 43 Alkaline Phosphatase 79 Troponin I Total Protein 6.2 L Albumin 3.3 L Globulin 2.9 Albumin/Globulin Ratio 1.1 Triglycerides Cholesterol LDL Cholesterol, Calc VLDL Cholesterol, Calc HDL Cholesterol Cholesterol/HDL Ratio Diagnostic Findings Telemetry personally reviewed: Sinus rhythm. No arrhythmia. ECG personally reviewed: ECG 12/30/2019: Normal sinus rhythm 64 beats per minute. Normal ECG. Echo 12/29/2019: Normal LV size, wall motion, systolic function. EF 60-65%. Moderate LVH. Mildly dilated RV with normal systolic function. Mild right atrial dilation. No significant valvular abnormality. Cardiac Cath 12/29/19: Coronary angiography: 1. Left main coronary artery: LMCA short but large in caliber. No significant CAD. 2. Left anterior descending: LAD extends to the apex. Mid LAD 50 to 60%. Large D1. MARK-3 flow. 3. Circumflex: The circumflex is a large-caliber vessel proximal to mid and then extends distally as a small caliber vessel. Large caliber OM1. Large caliber OM 2. Mid OM2 99% stenosis. MARK-3 flow. 4. Right coronary artery: RCA is large and dominant. No significant CAD within the RCA, PDA, RPL branches. Left heart catheterization: 1. Left ventriculography is not performed. 2. No significant aortic stenosis. Peak to peak gradient across aortic valve is 0. 3. Moderately elevated LVEDP; 20 mmHg. Interventional Details: 1. Multivessel coronary artery disease 99% acute mid OM 2 60 to 70% mid LAD (significant by FFR 0.75) 2. Successful PCI of mid OM 2 with 2 overlapping drug-eluting stents (3.0 x 15, 2.75 x 18 mm Raoul). 3. Successful PCI of mid LAD with single drug-eluting stent (3.5 x 18 mm Raoul; postdilated with 4.0 NC). Medications Administered Current Inpatient Medications Al Hydrox/Mg Hydrox/Simethicone (Aluminum/Magnesium Susp 30 Ml Udc) 15 ml PO Q4H PRN PRN Reason: Dyspepsia Stop: 01/28/20 01:13 Aspirin (Aspirin 81 Mg Ectab) 81 mg PO QAM KELL Stop: 01/28/20 08:59 Last Admin: 12/30/19 08:04 Dose: 81 mg Documented by: Atorvastatin Calcium (Atorvastatin 40 Mg Tab) 40 mg PO QAM [facility] Stop: 01/28/20 14:29 Last Admin: 12/30/19 08:04 Dose: 40 mg Documented by: Lisinopril (Lisinopril 5 Mg Tab) 5 mg PO QAM [facility] Stop: 01/28/20 14:29 Last Admin: 12/30/19 08:04 Dose: 5 mg Documented by: Magnesium Hydroxide (Magnesium Hydroxide Susp 30 Ml Udc) 30 ml PO Q12H PRN PRN Reason: Constipation Stop: 01/28/20 01:13 Morphine Sulfate (Morphine Sulfate 2 Mg/Ml Carp) 2 mg IV Q30M PRN PRN Reason: Chest Pain Stop: 01/12/20 01:13 Last Admin: 12/29/19 07:36 Dose: 2 mg Documented by: Nitroglycerin (Nitroglycerin Sl 0.4 Mg/Tab Tab) 0.4 mg SL UD PRN PRN Reason: Chest Pain Stop: 01/28/20 01:13 Ondansetron HCl (Ondansetron Inj 2 Mg/Ml 2 Ml Vial) 4 mg IV Q6H PRN PRN Reason: Nausea Stop: 01/28/20 01:13 Ticagrelor (Ticagrelor 90 Mg Tab) 90 mg PO BID [facility] Stop: 01/29/20 00:00 Last Admin: 12/30/19 08:04 Dose: 90 mg Documented by: PG Care Time/CCT Total # of Minutes Spent Total Time Spent with Patient: Total time spent is greater than 50% in coordination of care (as documented) at patient's floor/unit and/or counseling patient: Coding Level of Care Code 28867 Subseq Hosp Care Lvl 3 Diagnoses Non-ST elevation (NSTEMI) myocardial infarction I21.4 CAD (coronary artery disease) I25.10 S/P coronary artery stent placement Z95.5 Dyslipidemia E78.5
--- NOTE | 2020-01-01 04:40 | Electrocardiogram Report ---
Test Reason : Blood Pressure : / mmHG Vent. Rate : 064 BPM Atrial Rate : 064 BPM P-R Int : 188 ms QRS Dur : 112 ms QT Int : 404 ms P-R-T Axes : 052 049 046 degrees QTc Int : 416 ms Normal sinus rhythm Normal ECG When compared with ECG of 29-DEC-2019 09:54, No significant change was found Confirmed by Jimenez Goodwin ([id number]) on 01/01/2020 4:40:25 AM Referred By: REFERRED SELF Confirmed By:Jimenez Goodwin
--- NOTE | 2020-01-02 19:29 | Discharge Summary ---
Date of Service December 30, 2019 Admission HPI Per Admitting Provider shortly after eating supper this evening.The patient is a 54-year-old male with a past medical history including GERD, biliary colic, lumbar spondylosis, lumbar disc herniation and bilateral sacroiliitis. He reports the development of severe epigastric and substernal chest discomfort that radiated around toward his back. He had some nausea briefly associated. He rates the discomfort as severe. This did not feel the same as his reflux. Work-up in the emergency department included laboratories with an abnormal troponin of 0.064, and EKG without acute ST-T changes. Principal Diagnosis NSTEMI Discharge Exam Constitutional WD/WN, vitals as above Eyes PERRL, conjunctivae normal, anicteric sclerae ENMT external ear and nose normal, oropharynx normal Neck trachea midline, no thyromegaly Respiratory normal respiratory effort, lungs clear to auscultation Cardiovascular RRR, no murmur, no edema Gastrointestinal (Abdomen) normal bowel sounds, soft, nontender, no hepatosplenomegaly Musculoskeletal no cyanosis or clubbing, extremities motor strength 5/5 Skin no rashes, warm and dry Neurologic patellar DTR's 2+ bilat, sensation intact and PERRL, EOMI, accommodation nl, no face palsy, no dysarthria Psychiatric A+Ox3, euthymic affect Lymphatic no cervical or axillary lymphadenopathy Discharge Data Allergies Allergy/AdvReac Type Severity Reaction Status Date / Time acetaminophen [From Vicodin] AdvReac Severe BOWLES, Verified 12/28/19 23:02 GI-UPSET hydrocodone [From Vicodin] AdvReac Severe BOWLES, Verified 12/28/19 23:02 GI-UPSET Consultations 12/28/19 23:27 ED Decision to Admit Stat 12/29/19 01:14 Consult Cardiology Routine Consult Case Management - Discharge Planning Routine 12/29/19 14:01 Consult Cardiac Rehabilitation Routine Procedures Performed Operation Date: 12/29/19 11:00 Actual Procedures p Drug Eluting Stent SGl Vessel - Bud Neumann MD s Drug Eluting Stent each ADDTL Vessel - Bud Neumann MD s IVUS Coronary Single Vessel - Bud Neumann MD s Fraction Flow [place] SGL Ves - Bud Neumann MD s Cineradiography w/Routine Exam - Bud Neumann MD p Cath, Left with Cors and Vent - Bud Neumann MD Ordered Studies 12/28/19 22:33 CT angio chest PE protocol Urgent 12/29/19 10:53 CL Cath Imgs for PACS use only Routine Hospital Course (1) NSTEMI (non-ST elevated myocardial infarction): presented with chest pain and pressure, intense, never had chest pain before no acute changes on EKG, initial troponin minimally elevated troponin stacie to above 1, considered diagnostic for NSTEMI taken for left heart cath on day of admission, showed thrombus in OM2 branch and severe stenosis in LAD aspirin and Brilinta 90 BID Lipitor 40mg daily Lisinopril 5mg no need for beta lala as HR in the 60's already echocardiogram with preserved EF, no wall motion abnormalities patient feeling well on day of discharge, just a twinge of chest discomfort, nothing even close to what he experienced on admission he ambulated several times around the hallway without any increase in chest pain or pressure, no dyspnea, no nausea vitals and lab work stable will discharge to home with close PCP and cardiology follow up he was instructed to no exert himself until cleared on follow up (2) S/P coronary artery stent placement: aspirin 81mg daily and Brilinta 90mg BID x 1 year he knows the importance of taking these together to keep stent open (3) CAD (coronary artery disease): severe on heart cath stents placed in OM2 branch and mid LAD (4) Dyslipidemia: started on Lipitor 40mg daily (5) Chest pain: resolved, due to NSTEMI on admission (6) GERD (gastroesophageal reflux disease): continue PPI Total Time Total Time Spent Total Time Spent (In Minutes): 32 minutes Total Time Includes: Examination of the Patient, Discharge Planning, Medication Reconciliation and Communication With Other Providers (Dr. Goodwin) Discharge Plan Discharge Items Patient Disposition: Home - Self-Care Reason For Visit: ELEVATED TROPONIN Discharge Diagnosis: Non ST elevation [place] (heart attack) coronary artery disease Condition on Discharge: Good Goals: medical management of coronary disease, stents follow up with cardiology, cardiac rehab Activity: Per Instructions section Lifting: None Sexual Activity: Wait until after follow-up appointment Exercise/Sports: Wait until after follow-up appointment Driving/Machine Use: Resume 1 day after discharge Weightbearing: Full weightbearing Non-emergency contact: Primary Care Provider and [employer] Machine Tender Call non-emergency contact if: you have any medication questions and your symptoms worsen Follow-up/Referrals: Jimenez Goodwin MD [Physician] - 01/12/20 2:30 pm (2 weeks) Liya Jaquez PA-C [Primary Care Provider] - 01/05/20 8:30 am (one week) Diet: Heart Healthy Addtl Attending Provider Instructions: Medications: - BRILINTA: 90mg twice a day to keep stent open, take with aspirin - ASPIRIN: 81mg daily - LIPITOR: 40mg daily, helps lower cholesterol and stabilize plaques - LISINOPRIL: 5mg daily, helps prevent heart remodeling - NITRO: only take as needed for chest pain/pressure NSTEMI, treated with heart cath, stents to OM branch and LAD vitals stable, labs stable today, no further chest pain echocardiogram showed preserved ejection fraction, no wall motion abnormalities, thus no damage to heart take medications as prescribed to reduce risk of future AZ, help keep stents open, preserve heart function do not exert yourself until cleared by cardiology, you will be referred to cardiac rehab ACTIVITY RECOMMENDATIONS: Excess manipulation of the wrist should be avoided for the next 24-48 hours. * No lifting over 2 pounds (approximately a 1/2 gallon of milk) with the util ized arm for 24 hours. * No strenuous activity such as bowling or tennis for 3 days. * Keep the site of the procedure covered with a bandage for 24 hours. *You may shower the day after the procedure. Do not take a tub bath or submerge the puncture site in water for the next 3 days. *Do not operate any motorized equipment for 3 days. SPECIAL CARE INSTRUCTIONS: The site may be slightly bruised and sore following your procedure. Should any of the following occur, contact the Dr. who performed your procedure. 1. Redness/inflammation, swelling, chills, or fever, or colored drainage at procedure site within 3-7 days after your procedure. 2. Coldness, discoloration, ongoing numbness, severe pain, or swelling. Expect mild tingling of hand and tenderness at the puncture site for up to three days. If this persists beyond three days, or other symptoms develop, notify the Dr. who performed your procedure. BLEEDING: If the procedure site on your wrist begins to bleed, do not panic 1. Place 1 or 2 fingers firmly just slightly above the insertion site to stop the bleeding. You may be able to feel your pulse as you hold pressure. 2. Lift your finger after 5 minutes to see if the bleeding has stopped. 3. Once the bleeding has stopped, gently wipe the wrist area clean with a bandage. * If the bleeding from your wrist does not stop after 10 minutes, or if there is a large amount of bleeding or spurting, call 911 (do not drive yourself to the hospital). SKIN IRRITATION: * You may experience some redness and/or swelling in the area where radiation was administered. If any skin irritation occurs, please contact your family physician. FOLLOW UP VISIT: Keep any scheduled doctor appointments. Pending Studies at Discharge: No Stand-Alone Forms: [facility], Smoking Cessation Medications and DC Order Prescriptions: New atorvastatin 40 mg Tablet 40 mg PO QAM 30 Days Qty: 30 RF: 3 Brilinta 90 mg Tablet 90 mg PO BID 30 Days Qty: 60 RF: 3 lisinopril [Zestril] 5 mg Tablet 5 mg PO QAM 30 Days Qty: 30 RF: 3 aspirin 81 mg Tablet,Delayed Release (Dr/Ec) 81 mg PO QAM 30 Days Qty: 30 RF: 0 nitroglycerin [Nitrostat] 0.4 mg Tablet, Sublingual 0.4 mg sublingual UD PRN (Reason: chest pain) 30 Days Qty: 60 RF: 0 Continued calcium carbonate [Tums] 200 mg calcium (500 mg) Tablet,Chewable 400 mg PO BID PRN (Reason: Heartburn) RF: 0 omeprazole magnesium [Prilosec OTC] 20 mg Tablet,Delayed Release (Dr/Ec) 20 mg PO DAILY PRN (Reason: Acid Reflux) RF: 0 Discontinued ibuprofen [Advil] 200 mg Tablet 400 mg PO BID PRN (Reason: Pain) RF: 0 Discharge Orders: Discharge Order (Routine); Ordered 12/30/19 Ordered By: Duke Ortiz Admission Data Admit Date/Time: 12/29/19 00:04 Attending Provider: Duke Ortiz Admit Provider: Chase Oglesby Primary Care Provider: Liya Jaquez Other Providers: Chase Oglesby ; Jimenez Goodwin. Other Interventions: Discharge Summary Assessment (RN) Last Done: 12/30/19 11:12 Coding Level of Care Code 78060 OBS Care - Discharge Diagnoses NSTEMI (non-ST elevated myocardial infarction) I21.4 S/P coronary artery stent placement Z95.5 CAD (coronary artery disease) I25.10 Dyslipidemia E78.5 Chest pain R07.9 GERD (gastroesophageal reflux disease) K21.9
== END 2019-12-30 12:19 | disposition home or self-care (01) ==
LOC: ED 20:50 → 2S 20:50 → SUATTDRO 12-29 00:04 → 2S 12-29 00:44

== ENCOUNTER 2021-03-13 15:44 | Inpatient (IN) ==
--- NOTE | 2021-03-13 17:09 | XRay Report ---
XR chest 2V PA/lateral CLINICAL HISTORY: left sided rib pain after fall TECHNIQUE: AP and lateral frontal radiograph of the chest was obtained. Comparison: Comparison is made to chest one view 12/28/2019 FINDINGS: No lines and tubes are seen. The cardiomediastinal silhouette is normal. Multifocal airspace opacitie s are seen. No evidence of pleural effusion or pneumothorax. IMPRESSION: Multifocal airspace opacities may represent atelectasis, pneumonia, contusion, and/or aspiration. ACT 112: Negative or not required by law. Electronically signed by: Duke Beltran M.D. 03/13/2021 5:08 PM
[2021-03-13] MEDS ORDERED: ACETAMINOPHEN 1,000 MG/100 ML VIAL IV STA (18:03)
[2021-03-13] MEDS ORDERED: ONDANSETRON INJ 2 MG/ML 2 ML VIAL IV STA ×2 (18:03→22:46)
[2021-03-13] MEDS: SODIUM CHLORIDE 0.9% 1000ML 1,000 ML IV SCH ×2 (18:10→22:45)
[2021-03-13 18:27] LABS: Hematocrit (blood only) 47.4 % (42-52); Hemoglobin 16.5 g/dL (14.0-18.0); Mean Corpuscular Hemoglobin 31.4 pg (25-34); Mean Corpuscular Hgb Conc 34.8 g/dL (32-36); Mean Corpuscular Volume 90.3 fL (80-100); Mean Platelet Volume 9.4 fL (7.4-10.4); Platelet Count 247 K/uL (130-400); RDW Coefficient of Variation 13.4 % (11.5-14.5); RDW Standard Deviation 44.3 fL (36.4-46.3); Red Blood Count 5.25 M/uL (4.7-6.1); White Blood Count 8.45 K/uL (4.8-10.8)
[2021-03-13 18:59] LABS: Alanine Aminotransferase 91 U/L (12-78); Albumin Globulin Ratio 0.7 (0.9-2); Albumin Level 2.9 gm/dl (3.4-5.0); Alkaline Phosphatase 118 U/L (45-117); BUN Creatinine Ratio 13.9 (10-20); Bilirubin,Total 0.8 mg/dl (0.2-1); Blood Urea Nitrogen 14 mg/dl (7-18); Calcium 8.4 mg/dl (8.5-10.1); Carbon Dioxide 24 mmol/L (21-32); Chloride 101 mmol/L (98-107); Est GFR (African American) 98.8 ml/min; Est GFR (Non-African American) 85.2 ml/min; Globulin 4.2 gm/dl (2.5-4.0); Glucose 100 mg/dl (70-99); NT Pro B Type Natriuretic Pept 46 pg/ml (0-900); Sodium 135 mmol/L (136-145); Total Protein 7.1 gm/dl (6.4-8.2); Troponin I < 0.015 ng/ml (0-0.045)
--- NOTE | 2021-03-13 19:02 | Emergency Department Note ---
History of Present Illness General Chief complaint: Rib Injury/Pain Stated complaint: LEFT RIB INJURY AFTER A FALL, DIFFICULT BREATHING Time Seen by Provider: 03/13/21 17:49 Source: patient Mode of arrival: ambulatory Limitations: no limitations History of Present Illness Provider complaint: Shortness of breath Onset (ago): week(s) 1 Maximum Pain Intensity: 8 Associated symptoms: + chest pain, + cough, + fever/chills, + headaches, + loss of appetite, + malaise, + nausea/vomiting, + shortness of breath, + syncope and + weakness Treatments prior to arrival: none This is a 55-year-old male presents emerge department complaining of shortness of breath. Patient states last Thursday he developed weakness, fatigue, stood up and became lightheaded and passed out. He states when he passed out he fell forward striking his left chest wall on a coffee table. Patient states he awoke quickly, denies any tongue biting or incontinence. He states since then he has felt fatigued, intermittently nauseated, had a poor appetite, had cough, nasal congestion, increased shortness of breath. He states he was concerned that the shortness of breath was possible from a broken rib, but also admits to recent exposure with a Covid positive individual. He states he is not vaccinated. He states he has had intermittent diarrhea in addition, denies black or bloody stools. Denies rash or sores, leg swelling, or abdominal pain. Pt seen during a time of high acuity and national emergency pandemic while wearing PPE. Home Medications Medication Instructions Recorded Confirmed Type aspirin 81 mg tablet,delayed 81 mg PO DAILY #90 tab 08/02/20 03/13/21 Rx release atorvastatin 40 mg tablet 40 mg PO QAM 30 Days #90 tab 03/07/21 03/13/21 Rx clopidogrel 75 mg tablet 75 mg PO DAILY #90 tab 03/07/21 03/13/21 Rx lisinopril 5 mg tablet (Zestril) 5 mg PO QAM 30 Days #90 tab 03/07/21 03/13/21 Rx gabapentin 100 mg capsule 100 mg PO .COMPLEX PRN 03/13/21 03/13/21 History Allergies Allergy/AdvReac Type Severity Reaction Status Date / Time hydrocodone [From Vicodin] AdvReac Severe BOWLES, Verified 03/13/21 18:17 GI-UPSET Past Med/Surg History Medical History (Updated 03/14/21 @ 00:26 by Lara Clinton DO) Asthma Bilateral sacroiliitis CAD (coronary artery disease) Chronic back pain Dyslipidemia GERD (gastroesophageal reflux disease) Hx of fracture of ankle right - Has had 2 surgeries on ankle Lumbar disc herniation Lumbar post-laminectomy syndrome Lumbar radiculitis Lumbar spondylosis NSTEMI (non-ST elevated myocardial infarction) 12/28/20 Olecranon bursitis Spasm of back muscles Surgical History History of ankle surgery right History of back surgery S/P coronary artery stent placement 12/28/20 Social History Smoking Status: Never smoker Second Hand Exposure: No; Hx Alcohol Use: Yes Alcohol type: beer Hx Substance Use: No Preferred Language: Cape Verdean Communication Ability: Effective Visual Impairment: No Limitations Implementation Technician Required: No Beliefs That Will Affect Care: None marital status: Current Living Situation: Family Feels Safe at Home: Yes Assistive Devices: None Review of Systems A total of 10 systems reviewed and were otherwise negative All systems reviewed & are unremarkable except as noted in HPI & below Physical Exam Vital Signs Vital Signs - 24 hr 03/13/21 16:13 03/13/21 18:10 03/13/21 18:11 Temperature 36.8 C Temperature Source Temporal Artery Scan Pulse Rate 78 Pulse Rate from SpO2 Sensor Respiratory Rate 18 Respiratory Effort / Characteristics Non-Labored Respiratory Depth Normal Respiratory Pattern Regular Blood Pressure 97/66 L Blood Pressure Mean 76 Pulse Oximetry 90 89 L 94 Oxygen Delivery Method Room Air Room Air Nasal Cannula Oxygen Flow Rate 4 Sepsis Recent Fever Within 48 Hours No Sepsis New/Unexplained Change in Mental Status No Sepsis Action Taken by Nursing No Action Required 03/13/21 18:12 03/13/21 18:30 03/13/21 19:00 Temperature Temperature Source Pulse Rate 74 74 69 Pulse Rate from SpO2 Sensor 74 74 70 Respiratory Rate 14 17 17 Respiratory Effort / Characteristics Respiratory Depth Respiratory Pattern Blood Pressure 127/94 120/75 Blood Pressure Mean 105 90 Pulse Oximetry 94 96 97 Oxygen Delivery Method Nasal Cannula Oxygen Flow Rate 4 4 4 Sepsis Recent Fever Within 48 Hours Sepsis New/Unexplained Change in Mental Status Sepsis Action Taken by Nursing 03/13/21 19:30 03/13/21 20:00 11/17/21 20:32 Temperature Temperature Source Pulse Rate 68 68 71 Pulse Rate from SpO2 Sensor 68 69 69 Respiratory Rate 20 17 19 Respiratory Effort / Characteristics Respiratory Depth Respiratory Pattern Blood Pressure 127/89 Blood Pressure Mean 101 Pulse Oximetry 96 95 94 Oxygen Delivery Method Oxygen Flow Rate 4 4 Sepsis Recent Fever Within 48 Hours Sepsis New/Unexplained Change in Mental Status Sepsis Action Taken by Nursing 03/13/21 21:00 03/13/21 21:30 03/13/21 21:42 Temperature Temperature Source Pulse Rate 64 61 Pulse Rate from SpO2 Sensor 64 60 Respiratory Rate 18 17 16 Respiratory Effort / Characteristics Respiratory Depth Respiratory Pattern Blood Pressure Blood Pressure Mean Pulse Oximetry 96 94 95 Oxygen Delivery Method Nasal Cannula Oxygen Flow Rate 4 Sepsis Recent Fever Within 48 Hours Sepsis New/Unexplained Change in Mental Status Sepsis Action Taken by Nursing 03/13/21 22:00 Temperature Temperature Source Pulse Rate 74 Pulse Rate from SpO2 Sensor 74 Respiratory Rate 18 Respiratory Effort / Characteristics Respiratory Depth Respiratory Pattern Blood Pressure 138/82 Blood Pressure Mean 100 Pulse Oximetry 94 Oxygen Delivery Method Oxygen Flow Rate Sepsis Recent Fever Within 48 Hours Sepsis New/Unexplained Change in Mental Status Sepsis Action Taken by Nursing GENERAL: alert, ill appearing, well nourished, no distress, non-toxic EYE EXAM: normal conjunctiva, PERRL and EOM's grossly intact OROPHARYNX: no exudate, no erythema, lips, buccal mucosa, and tongue normal and mucous membranes are moist NECK: supple, no nuchal rigidity, no adenopathy, non-tender LUNGS: Clear to auscultation. Normal chest wall mechanics, no w/r/r HEART: no murmurs, S1 normal and S2 normal ABDOMEN: abdomen soft, non-tender, normo-active bowel sounds, no masses, no rebound or guarding. BACK: Back is symmetrical on inspection and there is no deformity, no midline tenderness, no CVA tenderness. SKIN: no rashes and no bruising UPPER EXTREMITIES: upper extremities are grossly normal. FROM, nml pulses b/l. LOWER EXTREMITIES: No pitting edema. FROM, nml pulses b/l. NEURO EXAM: Normal sensorium, cranial nerves II-XII grossly intact, normal speech, no gross weakness of arms, no gross weakness of legs. Gross sensation intact. Course Course 2039: Patient stated he is feeling improved with oxygen in place. Updated on all results. Administered Medications Discontinued Medications Albuterol (Albut/Ipratrop 3mg/0.5mg Neb 3 Ml Vial) 3 ml NEB NOW STA Stop: 03/13/21 20:47 Last Admin: 03/13/21 21:39 Dose: 3 ml Documented by: [id number] Dexamethasone (Dexamethasone Sod Inj 4 Mg/Ml Vial) Confirm Administered Dose 8 mg .ROUTE .STK-MED ONE Stop: 03/13/21 21:19 Last Admin: 03/13/21 21:24 Dose: Not Given Documented by: [id number] Sodium Chloride (Nss 1000ml) 1,000 mls @ 250 mls/hr IV .Q4H KELL Stop: 04/12/21 18:14 Last Admin: 03/13/21 22:45 Dose: 250 mls/hr Documented by: [id number] Infusion: 03/13/21 22:45 Dose: 0 mls/hr Documented by: [id number] Infusion: 03/13/21 19:10 Dose: 0 mls/hr Documented by: [id number] Admin: 03/13/21 18:10 Dose: 250 mls/hr Documented by: [id number] Acetaminophen (Ofirmev) 1,000 mg in 100 mls @ 400 mls/hr IV NOW STA Stop: 03/13/21 18:17 Last Admin: 03/13/21 18:13 Dose: 400 mls/hr Documented by: [id number] Dexamethasone 6 mg/ Syringe 1.5 mls @ 1 mls/min IV ONE ONE Stop: 03/13/21 20:42 Last Admin: 03/13/21 21:23 Dose: 1 mls/min Documented by: [id number] Remdesivir 200 mg/ Sodium (Chloride) 250 mls @ 125 mls/hr IV ONE STA; Protocol Stop: 03/14/21 00:05 Last Admin: 03/13/21 22:44 Dose: 125 mls/hr Documented by: [id number] Ondansetron HCl (Ondansetron Inj 2 Mg/Ml 2 Ml Vial) 4 mg IV NOW STA Stop: 03/13/21 18:04 Last Admin: 03/13/21 18:12 Dose: 4 mg Documented by: [id number] Ondansetron HCl (Ondansetron Inj 2 Mg/Ml 2 Ml Vial) 4 mg IV NOW STA Stop: 03/13/21 22:47 Last Admin: 03/13/21 23:14 Dose: 4 mg Documented by: [id number] Medical Decision Making Differential Diagnosis Differential Diagnosis includes but is not limited to dehydration, stroke, a nemia, hypoglycemia, hyponatremia, hypernatremia, urinary tract infection, pneumonia, bronchitis, sepsis, gastroenteritis, additional abdominal pathology, metabolic abnormalities and infections. Medical Records Attestation: I reviewed the patient's medical records. Home Medications Current Medication List: was personally reviewed by me Laboratory Data Attestation: I reviewed the patient's lab results. Result diagrams: 03/13/21 18:00 03/13/21 20:10 Lab Results 03/13/21 03/13/21 03/13/21 Range/Units 18:00 18:00 18:00 WBC 8.45 (4.8-10.8) K/uL RBC 5.25 (4.7-6.1) M/uL Hgb 16.5 (14.0-18.0) g/dL Hct 47.4 (42-52) % MCV 90.3 (80-100) fL MCH 31.4 (25-34) pg MCHC 34.8 (32-36) g/dL RDW Std Deviation 44.3 (36.4-46.3) fL RDW Coeff of Kaylynn 13.4 (11.5-14.5) % Plt Count 247 (130-400) K/uL MPV 9.4 (7.4-10.4) fL Immature Gran % (Auto) 0.1 % Neut % (Auto) 77.6 % Lymph % (Auto) 12.9 % [place]th % (Auto) 9.3 % Eos % (Auto) 0.0 % Baso % (Auto) 0.1 % Neut # (Auto) 6.55 H (1.4-6.5) K/uL Lymph # (Auto) 1.09 L (1.2-3.4) K/uL [place] # (Auto) 0.79 H (0.11-0.59) K/uL Eos # (Auto) 0.00 (0-0.5) K/uL Baso # (Auto) 0.01 (0-0.2) K/uL Immature Gran # (Auto) 0.01 (0.00-0.02) K/uL Echinocytes 1+ Sodium 135 L (136-145) mmol/L Potassium (3.5-5.1) mmol/L Chloride 101 (98-107) mmol/L Carbon Dioxide 24 (21-32) mmol/L Anion Gap 11.0 (3-11) BUN 14 (7-18) mg/dl Creatinine 0.98 (0.6-1.4) mg/dl Est Cr Clr Drug Dosing Not Reportable Est GFR ( Amer) 98.8 ml/min Est GFR (Non-Af Amer) 85.2 ml/min BUN/Creatinine Ratio 13.9 (10-20) Glucose 100 H (70-99) mg/dl Calcium 8.4 L (8.5-10.1) mg/dl Magnesium (1.8-2.4) mg/dl Ferritin Cancelled Total Bilirubin 0.8 (0.2-1) mg/dl AST (15-37) U/L ALT 91 H (12-78) U/L Alkaline Phosphatase 118 H (45-117) U/L Troponin I < 0.015 (0-0.045) ng/ml C-Reactive Protein Cancelled NT-Pro-B Natriuret Pep 46 (0-900) pg/ml Total Protein 7.1 (6.4-8.2) gm/dl Albumin 2.9 L (3.4-5.0) gm/dl Globulin 4.2 H (2.5-4.0) gm/dl Albumin/Globulin Ratio 0.7 L (0.9-2) COVID-19 Eval Order Covid19 at [facility] SARS-CoV-2 (PCR) (Negative) 03/13/21 03/13/21 Range/Units 18:00 20:10 WBC (4.8-10.8) K/uL RBC (4.7-6.1) M/uL Hgb (14.0-18.0) g/dL Hct (42-52) % MCV (80-100) fL MCH (25-34) pg MCHC (32-36) g/dL RDW Std Deviation (36.4-46.3) fL RDW Coeff of Kaylynn (11.5-14.5) % Plt Count (130-400) K/uL MPV (7.4-10.4) fL Immature Gran % (Auto) % Neut % (Auto) % Lymph % (Auto) % [place] % (Auto) % Eos % (Auto) % Baso % (Auto) % Neut # (Auto) (1.4-6.5) K/uL Lymph # (Auto) (1.2-3.4) K/uL [place] # (Auto) (0.11-0.59) K/uL Eos # (Auto) (0-0.5) K/uL Baso # (Auto) (0-0.2) K/uL Immature Gran # (Auto) (0.00-0.02) K/uL Echinocytes Sodium (136-145) mmol/L Potassium 3.6 (3.5-5.1) mmol/L Chloride (98-107) mmol/L Carbon Dioxide (21-32) mmol/L Anion Gap (3-11) BUN (7-18) mg/dl Creatinine (0.6-1.4) mg/dl Est Cr Clr Drug Dosing Est GFR ( Amer) ml/min Est GFR (Non-Af Amer) ml/min BUN/Creatinine Ratio (10-20) Glucose (70-99) mg/dl Calcium (8.5-10.1) mg/dl Magnesium 2.4 (1.8-2.4) mg/dl Ferritin 5131.9 H Total Bilirubin (0.2-1) mg/dl AST 75 H (15-37) U/L ALT (12-78) U/L Alkaline Phosphatase (45-117) U/L Troponin I (0-0.045) ng/ml C-Reactive Protein 7.13 H NT-Pro-B Natriuret Pep (0-900) pg/ml Total Protein (6.4-8.2) gm/dl Albumin (3.4-5.0) gm/dl Globulin (2.5-4.0) gm/dl Albumin/Globulin Ratio (0.9-2) COVID-19 Eval Order SARS-CoV-2 (PCR) POSITIVE A* (Negative) Imaging Data Radiologist's Impression: Chest X-Ray 03/13/21 16:19 XR chest 2V PA/lateral CLINICAL HISTORY: left sided rib pain after fall TECHNIQUE: AP and lateral frontal radiograph of the chest was obtained. Comparison: Comparison is made to chest one view 12/28/2019 FINDINGS: No lines and tubes are seen. The cardiomediastinal silhouette is normal. Multifocal airspace opacities are seen. No evidence of pleural effusion or pneumothorax. IMPRESSION: Multifocal airspace opacities may represent atelectasis, pneumonia, contusion, and/or aspiration. ACT 112: Negative or not required by law. Electronically signed by: Duke Beltran M.D. 03/13/2021 5:08 PM ECG Data Attestation: I personally reviewed and interpreted this ECG as follows: Indication: + SOB/dyspnea Rate (beats per minute): 74 Rhythm: + normal sinus ECG Intervals/blocks: + Normal QRS and + Normal QT ECG [place]: + Normal ECG ST segments: + Normal ST segments MDM Narrative This is a 55-year-old male presents emergency department complaint of increased shortness of breath, fatigue, decreased appetite, diarrhea, chills and body ache and concerned due to recent exposure with a Covid positive individual. Patient states he does have a prior history of mild asthma, has not been using his inhaler. He does not follow with pulmonology. Patient does have prior cardiac history. Patient is unvaccinated. Labs drawn and sent on the patient, chest x- ray performed prior to my evaluation as patient seen during a time of high volume and acuity. Patient hemodynamically stable although was noted to be 88% on room air and was placed on oxygen via nasal cannula. Patient's oxygen improved to the low 90s, once titrated up to 4 L/min his oxygen improved into the mid 90s and held. Patient did report feeling improved with the oxygenation. He was given IV fluids, 6 mg IV of dexamethasone, as well as a DuoNeb. Patient's other labs reassuring, mild elevation of LFTs likely secondary to his medications including his statin. Patient otherwise remained hemodynamically stable. We did discuss all results at bedside as well as need for ongoing monitoring and evaluation as an inpatient due to his oxygen requirement. Patient verbalized understanding was in agreement with plan. At this time I do not suspect PE, pericarditis/myocarditis, occult bacterial pneumonia, pleural effusion, ACS. No ectopy or dysrhythmia noted on telemetry. I do not suspect occult traumatic injury related to his reported syncope and fall last week. An order was placed for continuous cardiac monitoring. The monitor shows a rate of _66__ with _normal sinus_ rhythm. Impression & Plan Dyspnea, Hypoxia, COVID-19, Weakness Discharge Plan Visit Data Chief Complaint: Rib Injury/Pain Stated Complaint: LEFT RIB INJURY AFTER A FALL, DIFFICULT BREATHING ED Provider: Nathalie Ko Discharge Problem: Dyspnea, Hypoxia, COVID-19, Weakness Discharge Problem: Dyspnea Qualifiers: Dyspnea type: shortness of breath Qualified Code(s): R06.02 - Shortness of b reath
[2021-03-13 19:29] LABS: Basophils # (auto) 0.01 K/uL (0-0.2); Basophils % (auto) 0.1 %; Echinocytes 1+; Immature Granulocytes # (auto) 0.01 K/uL (0.00-0.02); Immature Granulocytes % (auto) 0.1 %; Lymphocytes # (auto) 1.09 K/uL (1.2-3.4); Lymphocytes % (auto) 12.9 %; Monocytes # (auto) 0.79 K/uL (0.11-0.59); Monocytes % (auto) 9.3 %; Neutrophils # (auto) 6.55 K/uL (1.4-6.5); Neutrophils % (auto) 77.6 %
[2021-03-13 20:39] LABS: Potassium 3.6 mmol/L (3.5-5.1)
[2021-03-13] MEDS ORDERED: dexAMETHasone 6 MG in SYRINGE 0 ML IV ONE (20:41)
[2021-03-13 20:43] LABS: Magnesium 2.4 mg/dl (1.8-2.4)
[2021-03-13] MEDS ORDERED: ALBUT/IPRATROP 3MG/0.5MG NEB 3 ML VIAL NEB STA (20:46)
[2021-03-13] MEDS ORDERED: DEXAMETHASONE SOD INJ 4 MG/ML VIAL ONE (21:18)
[2021-03-13] MEDS ORDERED: REMDESIVIR 200 MG in SODIUM CHLORIDE 0.9% 210 ML IV STA (22:06)
--- NOTE | 2021-03-13 22:07 | History & Physical Report ---
Date of Service March 13, 2021 Assessment & Plan (1) COVID-19: Plan: 55yo male with history of CAD s/p NSTEMI with placement of JUAN x 3 in 12/2019, GERD, HLP, Asthma presenting with Covid-19 PNA, hypoxic to 88% on room air initially - now improved with placement of supplemental O2 by NC - 4L. Patient is on Day 7 of illness. He is not vaccinated. Lymphopenic, mildly hyponatremic with Ar=682 Has elevation of AST, ALT and AP which he states has occurred before. -Admit to medical -Maintain isolation precautions for Covid -Check inflammatory markers - CRP, LDH, Ferritin, Fibrinogen. -Check Procalcitonin -Dexamethasone 6mg IV daily -Remdesivir per protocol - monitor LFTs and renal function -Supplemental O2 as needed - consider use of baricitinib/tocilizumab should patient have increasing O2 requirement -Tylenol as needed -Albuterol PRN -Incentive spirometry - encourage use -Lovenox 40mg BID (2) Nausea: Plan: Will hopefully improve with Covid treatment as above, Dexamethasone use -Zofran PRN -Phenergan PRN (3) CAD (coronary artery disease): Plan: Chronic. STable. Patient denies chest pain. -Continue ASA, Plavix, Atorvastatin, Lisinopril (4) Asthma: Plan: Chronic. No wheezing -Albuterol PRN as above Plan: F/E/N - Heplock. Electrolytes WNL. Heart healthy diet as tolerated Ppx - Lovenox 40 BID Code - Full Dispo -Admit to medical History of Present Illness Chief Complaint: Covid-19 infection Primary Care Provider: Liya Jaquez PA-C Carlos Pederson is a 55yo male with history of CAD s/p NSTEMI 12/2019 with placement of JUAN x 2 to OM2 and JUAN x 1 to mid-LAD, HLP, GERD and Asthma. Patient began having severe nausea 7 days ago, poor appetite and decreased oral intake. Also with some diarrhea, dry cough and progressive SOB. He had a syncopal event 7 days ago and his chest hit the coffee table. He has been having some musculoskeletal discomfort following that incident and was having some progressive difficulty breathing which he initially blamed on the trauma. Today his breathing became quite labored which is why he came to the ER. He denies chest pain, palpitations, abdominal pain, fever. No loss of taste or smell. His saturations were initially 87% on room air. He was placed on 2L NC with improvement to 89-90%. He was increased to 4L NC with improvement in saturation to 97%. He states he feels much better after having O2 and a breathing treatment. Presently complaining only of nausea. No additional complaints at this time. Patient is not vaccinated against Covid. ER Course: NSS x 1L, Zofran 4mg, Tylenol 1gm, Dexamethasone 6mg IV, Albuterol 3mL Allergies Allergy/AdvReac Type Severity Reaction Status Date / Time hydrocodone [From Vicodin] AdvReac Severe BOWLES, Verified 03/13/21 18:17 GI-UPSET Home Medications Medication Instructions Recorded Confirmed Type aspirin 81 mg tablet,delayed 81 mg PO DAILY #90 tab 08/02/20 03/13/21 Rx release atorvastatin 40 mg tablet 40 mg PO QAM 30 Days #90 tab 03/07/21 03/13/21 Rx clopidogrel 75 mg tablet 75 mg PO DAILY #90 tab 03/07/21 03/13/21 Rx lisinopril 5 mg tablet (Zestril) 5 mg PO QAM 30 Days #90 tab 03/07/21 03/13/21 Rx gabapentin 100 mg capsule 100 mg PO .COMPLEX PRN 03/13/21 03/13/21 History Past Med/Surg History Medical History (Updated 03/14/21 @ 00:26 by Lara Clinton DO) Asthma Bilateral sacroiliitis CAD (coronary artery disease) Chronic back pain Dyslipidemia GERD (gastroesophageal reflux disease) Hx of fracture of ankle right - Has had 2 surgeries on ankle Lumbar disc herniation Lumbar post-laminectomy syndrome Lumbar radiculitis Lumbar spondylosis NSTEMI (non-ST elevated myocardial infarction) 12/28/20 Olecranon bursitis Spasm of back muscles Surgical History History of ankle surgery right History of back surgery S/P coronary artery stent placement 12/28/20 Social History Smoking Status: Never smoker Second Hand Exposure: No; Hx Alcohol Use: Yes Alcohol type: beer Hx Substance Use: No Preferred Language: Romansh Communication Ability: Effective Visual Impairment: No Limitations Auger Operator Required: No Beliefs That Will Affect Care: None marital status: Current Living Situation: Family Feels Safe at Home: Yes Assistive Devices: None Review of Systems Review of Systems: All systems reviewed & are unremarkable except as noted in HPI & below Physical Exam Physical Exam: General: patient resting comfortably, NAD, non-toxic in appearance, AA&O x 4 Skin: warm, dry, intact, no rashes or lesions HEENT: NC/AT, PERRL, EOMI, anicteric sclera, conjunctiva without injection, external ear normal to inspection and nontender, nares patent, dry mucus memb ranes, dentition intact, no oropharyngeal lesions, neck supple, trachea midline, no LAD, no thyromegaly, no JVD Heart: +S1/S2, regular, no m/r/g Lungs: equal air entry bilaterally, fine end-inspiratory crackles in mid lung galeas and bilateral bases Abd: +BS, soft, NT/ND, no masses/organomegaly/ascites Ext: warm, 2+ pulses in UE/LE bilaterally, no clubbing/cyanosis or edema Neuro: nonfocal, patient AA&O x 4, speech intact, no facial droop, moving all extremities on command with equal strength 5/5 Results & Data Results & Data ([facility]) Vital Signs (Past 12 Hours) Vital Signs Temp Pulse Resp BP Pulse Ox 03/13/21 21:42 16 95 03/13/21 20:00 68 17 127/89 95 03/13/21 19:30 68 20 96 03/13/21 19:00 69 17 120/75 97 03/13/21 18:30 74 17 96 03/13/21 18:12 74 14 127/94 94 03/13/21 18:11 94 03/13/21 18:10 89 L 03/13/21 16:13 36.8 C 78 18 97/66 L 90 Laboratory Results Laboratory Results WBC 8.45 K/uL (4.8-10.8) 03/13/21 18:00 RBC 5.25 M/uL (4.7-6.1) 03/13/21 18:00 Hgb 16.5 g/dL (14.0-18.0) 03/13/21 18:00 Hct 47.4 % (42-52) 03/13/21 18:00 MCV 90.3 fL (80-100) 03/13/21 18:00 MCH 31.4 pg (25-34) 03/13/21 18:00 MCHC 34.8 g/dL (32-36) 03/13/21 18:00 RDW Std Deviation 44.3 fL (36.4-46.3) 03/13/21 18:00 RDW Coeff of Kaylynn 13.4 % (11.5-14.5) 03/13/21 18:00 Plt Count 247 K/uL (130-400) 03/13/21 18:00 MPV 9.4 fL (7.4-10.4) 03/13/21 18:00 Immature Gran % (Auto) 0.1 % 03/13/21 18:00 Neut % (Auto) 77.6 % 03/13/21 18:00 Lymph % (Auto) 12.9 % 03/13/21 18:00 [place] % (Auto) 9.3 % 03/13/21 18:00 Eos % (Auto) 0.0 % 03/13/21 18:00 Baso % (Auto) 0.1 % 03/13/21 18:00 Neut # (Auto) 6.55 K/uL (1.4-6.5) H 03/13/21 18:00 Lymph # (Auto) 1.09 K/uL (1.2-3.4) L 03/13/21 18:00 [place] # (Auto) 0.79 K/uL (0.11-0.59) H 03/13/21 18:00 Eos # (Auto) 0.00 K/uL (0-0.5) 03/13/21 18:00 Baso # (Auto) 0.01 K/uL (0-0.2) 03/13/21 18:00 Immature Gran # (Auto) 0.01 K/uL (0.00-0.02) 03/13/21 18:00 Echinocytes 1+ 03/13/21 18:00 Sodium 135 mmol/L (136-145) L 03/13/21 18:00 Potassium 3.6 mmol/L (3.5-5.1) 03/13/21 20:10 Chloride 101 mmol/L (98-107) 03/13/21 18:00 Carbon Dioxide 24 mmol/L (21-32) 03/13/21 18:00 Anion Gap 11.0 (3-11) 03/13/21 18:00 BUN 14 mg/dl (7-18) 03/13/21 18:00 Creatinine 0.98 mg/dl (0.6-1.4) 03/13/21 18:00 Est Cr Clr Drug Dosing Not Reportable 03/13/21 18:00 Est GFR ( Amer) 98.8 ml/min 03/13/21 18:00 Est GFR (Non-Af Amer) 85.2 ml/min 03/13/21 18:00 BUN/Creatinine Ratio 13.9 (10-20) 03/13/21 18:00 Glucose 100 mg/dl (70-99) H 03/13/21 18:00 Calcium 8.4 mg/dl (8.5-10.1) L 03/13/21 18:00 Magnesium 2.4 mg/dl (1.8-2.4) 03/13/21 20:10 Ferritin 5131.9 ng/ml (8-388) H 03/13/21 20:10 Total Bilirubin 0.8 mg/dl (0.2-1) 03/13/21 18:00 AST 75 U/L (15-37) H 03/13/21 20:10 ALT 91 U/L (12-78) H 03/13/21 18:00 Alkaline Phosphatase 118 U/L (45-117) H 03/13/21 18:00 Troponin I < 0.015 ng/ml (0-0.045) 03/13/21 18:00 C-Reactive Protein 7.13 mg/dl (0-0.29) H 03/13/21 20:10 NT-Pro-B Natriuret Pep 46 pg/ml (0-900) 03/13/21 18:00 Total Protein 7.1 gm/dl (6.4-8.2) 03/13/21 18:00 Albumin 2.9 gm/dl (3.4-5.0) L 03/13/21 18:00 Globulin 4.2 gm/dl (2.5-4.0) H 03/13/21 18:00 Albumin/Globulin Ratio 0.7 (0.9-2) L 03/13/21 18:00 COVID-19 Eval Order Covid19 at [facility] 03/13/21 18:00 SARS-CoV-2 (PCR) POSITIVE (Negative) A* 03/13/21 18:00 Impressions Chest X-Ray 03/13/21 16:19 XR chest 2V PA/lateral CLINICAL HISTORY: left sided rib pain after fall TECHNIQUE: AP and lateral frontal radiograph of the chest was obtained. Comparison: Comparison is made to chest one view 12/28/2019 FINDINGS: No lines and tubes are seen. The cardiomediastinal silhouette is normal. Multifocal airspace opacities are seen. No evidence of pleural effusion or pneumothorax. IMPRESSION: Multifocal airspace opacities may represent atelectasis, pneumonia, contusion, and/or aspiration. ACT 112: Negative or not required by law. Electronically signed by: Duke Beltran M.D. 03/13/2021 5:08 PM Code Status & VTE Plan VTE Prophylaxis Plan VTE Prophylaxis will be ordered: Yes PG Care Time/CCT Total # of Minutes Spent Total Time Spent with Patient: Total time spent is greater than 50% in coordination of care (as documented) at patient's floor/unit and/or counseling patient: Coding Level of Care Code 81058 Initial Inpt Care Lvl 3 Diagnoses COVID-19 U07.1 CAD (coronary artery disease) I25.10 Asthma J45.909 Nausea R11.0
[2021-03-13] MEDS ORDERED: ACETAMINOPHEN 325 MG TAB PO PRN (22:57)
[2021-03-13] MEDS ORDERED: ONDANSETRON INJ 2 MG/ML 2 ML VIAL IV PRN (22:57)
[2021-03-13] MEDS ORDERED: PROMETHAZINE HCL 6.25 MG in SODIUM CHLORIDE 0.9% 50 ML IV PRN (22:57)
[2021-03-13] MEDS ORDERED: GABAPENTIN 100 MG CAP PO PRN (22:57)
[2021-03-13 23:59] LABS: C Reactive Protein 7.13 mg/dl (0-0.29); Ferritin 5131.9 ng/ml (8-388)
[2021-03-14] MEDS: ALBUTEROL HFA 8 GM INHALER INH SCH ×7 (00:20→23:30)
[2021-03-14] MEDS: SODIUM CHLORIDE 0.9% 10ML FLUSH IV SCH (00:55)
[2021-03-14] MEDS: ENOXAPARIN INJ 40 MG/0.4 ML SYR SQ SCH ×3 (01:08→21:47)
[2021-03-14 05:48] LABS: Hematocrit (blood only) 44.3 % (42-52); Hemoglobin 15.4 g/dL (14.0-18.0); Mean Corpuscular Hemoglobin 31.3 pg (25-34); Mean Corpuscular Hgb Conc 34.8 g/dL (32-36); Mean Platelet Volume 9.4 fL (7.4-10.4); Platelet Count 247 K/uL (130-400); RDW Coefficient of Variation 13.2 % (11.5-14.5); RDW Standard Deviation 43.7 fL (36.4-46.3); Red Blood Count 4.92 M/uL (4.7-6.1)
[2021-03-14 06:09] LABS: Fibrinogen 412 mg/dl (184-400)
[2021-03-14 06:21] LABS: Alanine Aminotransferase 82 U/L (12-78); Albumin Level 2.5 gm/dl (3.4-5.0); Aspartate Aminotransferase 74 U/L (15-37); BUN Creatinine Ratio 18.5 (10-20); Bilirubin Direct 0.2 mg/dl (0-0.2); Blood Urea Nitrogen 15 mg/dl (7-18); Calcium 8.3 mg/dl (8.5-10.1); Carbon Dioxide 25 mmol/L (21-32); Chloride 106 mmol/L (98-107); Est GFR (African American) 113.2 ml/min; Est GFR (Non-African American) 97.7 ml/min; Glucose 176 mg/dl (70-99); Sodium 137 mmol/L (136-145)
[2021-03-14 06:25] LABS: Alkaline Phosphatase 122 U/L (45-117); Bilirubin,Total 0.6 mg/dl (0.2-1); Total Protein 6.2 gm/dl (6.4-8.2)
[2021-03-14 06:29] LABS: Basophils # (auto) 0.01 K/uL (0-0.2); Basophils % (auto) 0.2 %; Immature Granulocytes # (auto) 0.01 K/uL (0.00-0.02); Immature Granulocytes % (auto) 0.2 %; Lymphocytes # (auto) 0.69 K/uL (1.2-3.4); Monocytes # (auto) 0.22 K/uL (0.11-0.59); Monocytes % (auto) 5.1 %; Neutrophils # (auto) 3.37 K/uL (1.4-6.5); Neutrophils % (auto) 78.5 %; RBC Morphology Unremarkable
--- NOTE | 2021-03-14 09:16 | Electrocardiogram Report ---
Test Reason : Blood Pressure : / mmHG Vent. Rate : 074 BPM Atrial Rate : 074 BPM P-R Int : 178 ms QRS Dur : 110 ms QT Int : 396 ms P-R-T Axes : 044 035 031 degrees QTc Int : 439 ms Normal sinus rhythm Incomplete right bundle branch block Borderline ECG When compared with ECG of 30-DEC-2019 09:37, No significant change was found Confirmed by Cody Aponte ([id number]) on 03/14/2021 9:16:28 AM Referred By: Liya Jaquez Confirmed By:Cody Aponte
[2021-03-14] MEDS ORDERED: DEXAMETHASONE SOD INJ 4 MG/ML VIAL ONE (09:18)
[2021-03-14] MEDS: lisinopril 5 MG TAB PO SCH (09:26)
[2021-03-14] MEDS: ASPIRIN 81 MG ECTAB PO SCH (09:26)
[2021-03-14] MEDS: CLOPIDOGREL BISULFATE 75 MG TAB PO SCH (09:26)
[2021-03-14] MEDS: ATORVASTATIN 40 MG TAB PO SCH (09:26)
[2021-03-14] MEDS: dexAMETHasone 6 MG in SYRINGE 0 ML IV SCH (09:27)
--- NOTE | 2021-03-14 11:11 | Hospitalist Progress Note ---
Date of Service March 14, 2021 Assessment & Plan (1) COVID-19: Plan: 55yo male with history of CAD s/p NSTEMI with placement of JUAN x 3 in 12/2019, GERD, HLP, Asthma presenting with Covid-19 PNA, hypoxic to 88% on room air, now on supplemental O2 by NC - 4L. symptoms began one week prior to admission approx 03/06/21 He is not vaccinated. isolation precautions for Covid -elevated CRP 7.13, normal procalcitonin -Dexamethasone 6mg IV daily -Remdesivir per protocol - monitor LFTs and renal function seems to have transaminitis associated with covid infection also -Supplemental O2 as needed - consider use of baricitinib/tocilizumab should patient have increasing O2 requirement -Tylenol as needed -Albuterol PRN -Incentive spirometry - encourage use -Lovenox 40mg BID (2) Nausea: Plan: treat symptomatically ? secondary to covid gastroenteritis -Zofran PRN -Phenergan PRN nausea is concerning as the pt has some mild protein malnutrition seen on labs (3) CAD (coronary artery disease): Plan: Chronic. STable. Patient denies chest pain. -Continue ASA, Plavix, Atorvastatin, Lisinopril (4) Asthma: Plan: Chronic. No wheezing -Albuterol PRN as above Plan: F/E/N - Heplock. Electrolytes WNL. Heart healthy diet as tolerated Ppx - Lovenox 40 BID Code - Full Dispo -Admit to medical Admission and Anticipated Discharge Date Admission Date: March 13, 2021 Review of Systems Review of Systems: moderate distress and respiratory fatigue mild bifrontal headache, no visual changes no speech or swallowing issues left sided pleuritic\ chest pain from recent fall, no pressure or palpitations continued shortness of breath, cough or wheezes no abdominal pain, resolvining nausea or vomiting,,,mild diarrhea or constipation no dysuria, hematuria or frequency no focal joint pain or swelling no back pain, CVA tenderness or radicular pain no bruising, bleeding or rashes no focal signs of weakness or numbness or altered sensation no complaints of anxiety or depression.. Physical Exam Physical Exam: The patient appeared well nourished and normally developed. Vital signs as documented. Head exam is normocephalic atraumatic Neck is without JVD, thyromegaly, or carotid bruits. Lungs are rales bilateral Cardiac exam, Rhythm is regular.. No murmurs, rubs or gallops. Abdominal exam reveals normal bowel sounds, soft non tender, no masses Extremities are nonedematous and both pedal pulses are present Neurologic exam is alert and oriented, no focal loss of strength or sensation Skin is without bruises or rashes Psychologically is without concerns for anxiety or depression Results & Data Results & Data ([facility]) Vital Signs (Past 12 Hours) Vital Signs Pulse Resp BP Pulse Ox 03/14/21 09:35 65 18 121/87 92 03/14/21 07:31 60 18 95 03/14/21 01:16 63 16 141/78 H 94 03/14/21 00:20 16 PG Care Time/CCT Total # of Minutes Spent Total Time Spent with Patient: Total time spent is greater than 50% in coordination of care (as documented) at patient's floor/unit and/or counseling patient: Coding Level of Care Code 26735 Subseq Hosp Care Lvl 3 Diagnoses COVID-19 U07.1 Nausea R11.0 CAD (coronary artery disease) I25.10 Asthma J45.909
[2021-03-14] MEDS ORDERED: ACETAMINOPHEN 500 MG TAB PO PRN (11:31)
[2021-03-14] MEDS: LIDOCAINE 5% 1 PATCH TD SCH (19:55)
[2021-03-14] MEDS: PATIENT'S HEIGHT AND/OR WEIGHT NEEDED SCH ×2 (20:50→20:53)
[2021-03-14] MEDS: REMDESIVIR 100 MG in SODIUM CHLORIDE 0.9% 230 ML IV SCH (21:44)
[2021-03-15] MEDS: SODIUM CHLORIDE 0.9% 10ML FLUSH IV SCH ×2 (01:33→22:24)
[2021-03-15] MEDS: ALBUTEROL HFA 8 GM INHALER INH SCH ×2 (03:21→08:23)
[2021-03-15] MEDS ORDERED: ALBUTEROL HFA 8 GM INHALER INH PRN (08:38)
[2021-03-15] MEDS: lisinopril 5 MG TAB PO SCH (09:42)
[2021-03-15] MEDS: CLOPIDOGREL BISULFATE 75 MG TAB PO SCH (09:43)
[2021-03-15] MEDS: ATORVASTATIN 40 MG TAB PO SCH (09:43)
[2021-03-15] MEDS: ASPIRIN 81 MG ECTAB PO SCH (09:43)
[2021-03-15] MEDS: LIDOCAINE 5% 1 PATCH TD SCH (09:44)
[2021-03-15] MEDS: ENOXAPARIN INJ 40 MG/0.4 ML SYR SQ SCH ×2 (09:46→21:11)
[2021-03-15] MEDS: dexAMETHasone 6 MG in SYRINGE 0 ML IV SCH (09:47)
[2021-03-15 11:21] LABS: Hematocrit (blood only) 44.1 % (42-52); Mean Corpuscular Hemoglobin 30.7 pg (25-34); Mean Corpuscular Volume 90.4 fL (80-100); Mean Platelet Volume 9.8 fL (7.4-10.4); Platelet Count 311 K/uL (130-400); RDW Coefficient of Variation 13.2 % (11.5-14.5); Red Blood Count 4.88 M/uL (4.7-6.1); White Blood Count 11.48 K/uL (4.8-10.8)
[2021-03-15 11:46] LABS: Albumin Level 2.7 gm/dl (3.4-5.0); BUN Creatinine Ratio 22.4 (10-20); Calcium 8.6 mg/dl (8.5-10.1); Creatinine Clr Calc Pharmacy 106.1 ml/min; Est GFR (African American) 102.6 ml/min; Est GFR (Non-African American) 88.5 ml/min; Potassium 3.9 mmol/L (3.5-5.1)
[2021-03-15 11:49] LABS: Albumin Globulin Ratio 0.7 (0.9-2); Bilirubin,Total 0.5 mg/dl (0.2-1); Globulin 3.8 gm/dl (2.5-4.0); Total Protein 6.5 gm/dl (6.4-8.2)
[2021-03-15 11:50] LABS: Basophils # (auto) 0.01 K/uL (0-0.2); Basophils % (auto) 0.1 %; Immature Granulocytes # (auto) 0.04 K/uL (0.00-0.02); Immature Granulocytes % (auto) 0.3 %; Lymphocytes % (auto) 7.8 %; Monocytes # (auto) 0.88 K/uL (0.11-0.59); Monocytes % (auto) 7.7 %; Neutrophils # (auto) 9.65 K/uL (1.4-6.5); Neutrophils % (auto) 84.1 %; Toxic Granulation 1+
[2021-03-15] MEDS ORDERED: POTASSIUM CHLORIDE 10 MEQ TABCR PO STA (17:57)
[2021-03-15] MEDS ORDERED: FUROSEMIDE 20 MG TAB PO ONE (17:57)
--- NOTE | 2021-03-15 20:44 | Hospitalist Progress Note ---
Date of Service March 15, 2021 Assessment & Plan (1) Acute respiratory failure with hypoxia: Plan: 2nd to #2 below improving sats borderline low at rest (~90% during my rounds in RA) with minimal activity -- sats 88% in RA (2) Pneumonia due to 2019 novel coronavirus: Plan: cont dexamethasone - day #3 cont Remdesivir - day # 3 no evidence of complicating CHF or bacterial superinfection pulm toilet formal 2-step in am if he discharges to home (3) Asthma: Plan: no exacerbation at this time albuterol prn (4) Dyslipidemia: Plan: since LFTs are improving cont statin (5) CAD (coronary artery disease): Plan: no evidence of ACS no ischemic symptoms cont asa, plavix, statin, DHRUV not on beta lala -- presumably due to low HRs at baseline (6) GERD (gastroesophageal reflux disease): Plan: no symptoms at this time (7) Transaminitis: Plan: 2nd to COVID 19 infection repeat am (8) DVT prophylaxis: Plan: lovenox 40mg BID (9) Hyperglycemia: Plan: check a1c in am BSGs ac/hs in meantime Plan: updated by phone home tomorrow?? Admission and Anticipated Discharge Date Admission Date: March 13, 2021 Subjective pt anxious to go home asks for d/c home today with O2 in place feels MUCH better nausea resolved mild cough only denies dyspnea fatigue improved eating ok Review of Systems Review of Systems: gen - no fevers or chills CV - no chest pain GI - no abd pain, nausea or emesis pulm - no wheezing Physical Exam Physical Exam: gen - NAD, looks good neck - no JVD mouth - MMM heart - RRR, s1 s2, no murmur lungs - bilateral rales - extensive, extending 1/2 way up back abd - soft NT ND BS+; no HSM ext - no ankle edema, pulses 2+ b/l psych - a/o x 3 Results & Data Results & Data ([facility]) Vital Signs (Past 12 Hours) Vital Signs Temp Pulse Resp BP Pulse Ox 03/15/21 16:27 36.4 C L 62 20 104/67 90 03/15/21 09:50 93 Laboratory Results Laboratory Results - last 24 hr 03/15/21 03/15/21 03/15/21 10:49 10:49 20:22 WBC 11.48 H RBC 4.88 Hgb 15.0 Hct 44.1 MCV 90.4 MCH 30.7 MCHC 34.0 RDW Std Deviation 44.0 RDW Coeff of Kaylynn 13.2 Plt Count 311 MPV 9.8 Immature Gran % (Auto) 0.3 Neut % (Auto) 84.1 Lymph % (Auto) 7.8 Walsh % (Auto) 7.7 Eos % (Auto) 0.0 Baso % (Auto) 0.1 Neut # (Auto) 9.65 H Lymph # (Auto) 0.90 L Walsh # (Auto) 0.88 H Eos # (Auto) 0.00 Baso # (Auto) 0.01 Immature Gran # (Auto) 0.04 H Toxic Granulation 1+ Sodium 139 Potassium 3.9 Chloride 107 Carbon Dioxide 23 Anion Gap 9.0 BUN 21 H Creatinine 0.95 Est Cr Clr Drug Dosing 106.1 Est GFR ( Amer) 102.6 Est GFR (Non-Af Amer) 88.5 BUN/Creatinine Ratio 22.4 H Glucose 186 H POC Glucose 127 H Calcium 8.6 Total Bilirubin 0.5 AST 65 H ALT 88 H Alkaline Phosphatase 112 Total Protein 6.5 Albumin 2.7 L Globulin 3.8 Albumin/Globulin Ratio 0.7 L PG Care Time/CCT Total # of Minutes Spent Total Time Spent with Patient: Total time spent is greater than 50% in coordination of care (as documented) at patient's floor/unit and/or counseling patient: Coding Level of Care Code 31878 Subseq Hosp Care Lvl 2 Diagnoses Acute respiratory failure with hypoxia J96.01 Pneumonia due to 2019 novel coronavirus U07.1; J12.82 Asthma J45.909 Dyslipidemia E78.5 CAD (coronary artery disease) I25.10 GERD (gastroesophageal reflux disease) K21.9 Transaminitis R74.01 DVT prophylaxis Z29.9 Hyperglycemia R73.9
[2021-03-15] MEDS ORDERED: GABAPENTIN 400 MG CAP PO SCH (21:00)
[2021-03-15] MEDS: REMDESIVIR 100 MG in SODIUM CHLORIDE 0.9% 230 ML IV SCH (21:06)
[2021-03-16 07:52] LABS: Estimated Average Glucose 126 mg/dl
[2021-03-16 07:56] LABS: D Dimer 550 ug/L FEU (0-500)
[2021-03-16 08:02] LABS: BUN Creatinine Ratio 26.4 (10-20); Calcium 8.3 mg/dl (8.5-10.1); Creatinine Clr Calc Pharmacy 109.5 ml/min; Est GFR (African American) 106.6 ml/min; Potassium 4.1 mmol/L (3.5-5.1)
[2021-03-16] MEDS: lisinopril 5 MG TAB PO SCH (08:31)
[2021-03-16] MEDS: ASPIRIN 81 MG ECTAB PO SCH (08:31)
[2021-03-16] MEDS: ATORVASTATIN 40 MG TAB PO SCH (08:31)
[2021-03-16] MEDS: CLOPIDOGREL BISULFATE 75 MG TAB PO SCH (08:31)
[2021-03-16] MEDS: LIDOCAINE 5% 1 PATCH TD SCH (08:33)
[2021-03-16] MEDS: dexAMETHasone 6 MG in SYRINGE 0 ML IV SCH (08:34)
[2021-03-16] MEDS: ENOXAPARIN INJ 40 MG/0.4 ML SYR SQ SCH (08:34)
[2021-03-16] MEDS ORDERED: GABAPENTIN 100 MG CAP PO SCH (09:00)
--- NOTE | 2021-03-16 11:51 | Discharge Summary ---
Date of Service date of admission - March 13, 2021 date of discharge - March 16, 2021 Admission HPI Per Admitting Provider Carlos Pederson is a 55yo male with history of CAD s/p NSTEMI 12/2019 with placement of JUAN x 2 to OM2 and JUAN x 1 to mid-LAD, HLP, GERD and Asthma. Patient began having severe nausea 7 days ago, poor appetite and decreased oral intake. Also with some diarrhea, dry cough and progressive SOB. He had a syncopal event 7 days ago and his chest hit the coffee table. He has been having some musculoskeletal discomfort following that incident and was having some progressive difficulty breathing which he initially blamed on the trauma. Today his breathing became quite labored which is why he came to the ER. He denies chest pain, palpitations, abdominal pain, fever. No loss of taste or smell. His saturations were initially 87% on room air. He was placed on 2L NC with improvement to 89-90%. He was increased to 4L NC with improvement in saturation to 97%. He states he feels much better after having O2 and a breathing treatment. Presently complaining only of nausea. No additional complaints at this time. Patient is not vaccinated against Covid. ER Course: NSS x 1L, Zofran 4mg, Tylenol 1gm, Dexamethasone 6mg IV, Albuterol 3mL Principal Diagnosis acute hypoxic respiratory failure 2nd to COVID-19 pneumonia Discharge Exam gen - NAD neck - no JVD mouth - MMM heart - RRR, s1 s2, no murmur lungs - bilateral rales extending 1/[address] up back but good airation, no distress abd - soft NT ND BS+; no HSM ext - no ankle edema, pulses 2+ b/l psych - a/o x 3 Discharge Data Allergies Allergy/AdvReac Type Severity Reaction Status Date / Time hydrocodone [From Vicodin] AdvReac Severe BOWLES, Verified 03/13/21 18:17 GI-UPSET Ordered Studies Chest X-Ray 03/13/21 16:19 XR chest 2V PA/lateral CLINICAL HISTORY: left sided rib pain after fall TECHNIQUE: AP and lateral frontal radiograph of the chest was obtained. Comparison: Comparison is made to chest one view 12/28/2019 FINDINGS: No lines and tubes are seen. The cardiomediastinal silhouette is normal. Multifocal airspace opacities are seen. No evidence of pleural effusion or pneumothorax. IMPRESSION: Multifocal airspace opacities may represent atelectasis, pneumonia, contusion, and/or aspiration. ACT 112: Negative or not required by law. Electronically signed by: Duke Beltran M.D. 03/13/2021 5:08 PM Hospital Course (1) Acute respiratory failure with hypoxia: 2nd to COVID-19 pneumonia. Resolved. NC O2 weaned off by discharge, and patient passed his ambulatory 2-step oxygen test with lowest O2 sats ~91% with walking. (2) Pneumonia due to 2019 novel coronavirus: Treated with IV dexamethasone, Remdesivir, and pulmonary toilet. The patient's pulmonary symptoms improved with such. He had no evidence of complicating CHF or bacterial superinfection while here. O2 was weaned off by time of discharge. He will complete a course of oral dexamethasone at home (6mg daily x 6 additional days). He was encouraged to continue to prone & perform deep breathing exercises at home. (3) Asthma: Cont albuterol prn No significant wheezing while here (4) Dyslipidemia: Continue statin agent (5) CAD (coronary artery disease): no evidence of ACS during the stay no ischemic symptoms cont asa, plavix, statin, DHRUV He is not on a beta lala -- presumably due to low HRs at baseline (6) GERD (gastroesophageal reflux disease): no symptoms during the hospitalization (7) Transaminitis: 2nd to COVID 19 infection AST was 48 at time of discharge ALT was 80 at time of discharge these transaminases were mildly high but stable the entire stay he should avoid alcohol and tylenol until LFTs can be rechecked as an outpatient (8) DVT prophylaxis: lovenox 40mg BID was used during his stay no DVT prophylaxis was given at time of discharge (9) Hyperglycemia: Hemoglobin a1c was 6% consistent with pre-diabetes. He was asked to f/u with his PCP for this Total Time Total Time Spent Total Time Spent (In Minutes): 35 Discharge Plan Discharge Items Patient Disposition: Home - Self-Care Reason For Visit: COVID-19 Pneumonia Discharge Diagnosis: 1. COVID-19 Pneumonia - improving 2. abnormal liver function tests due to COVID-19 virus - improving Activity: As commented below Activity Comment: gradually increase your activities over the next 1-2 weeks Lifting: No more than 10 pounds Bathing: No limitations Sexual Activity: Wait until after follow-up appointment Exercise/Sports: Wait until after follow-up appointment Driving/Machine Use: Resume 1 day after discharge Non-emergency contact: Primary Care Provider Call non-emergency contact if: you have any medication questions, your symptoms worsen and you have a fever Follow-up/Referrals: Liya Jaquez PA-C [Primary Care Provider] - 03/19/21 8:00 am (see Liya Jaquez this week prior to the ) Diet: Heart Healthy Addtl Attending Provider Instructions: Mr Pederson, You were hospitalized for COVID-19 pneumonia. During your stay you required oxygen and were treated with steroids, Remdesivir, and other supportive measures. Your symptoms improved and your oxygen was weaned off. Your oxygen walking test on day of discharge was normal; thus, you do not need oxygen at your home. recommendations - 1. dexamethasone steroid - 6mg once daily with food for 6 additional days. Take your first dose TOMORROW. This is to decrease inflammation in your lungs from the COVID infection. 2. for nausea - * ondansetron 4mg every 6 hours as needed for nausea/vomiting * this medication makes some people sleepy when they take it 3. for cough - * may use [id number] mucinex up to 1200mg twice daily as needed * may use your albuterol inhaler via plastic spacer device - 2 puffs every 4 hours as needed for cough/wheeze/shortness of breath * know that the cough from COVID can last for several weeks 4. you are likely NOT contagious to others at this time. However, I would spend the majority of the next week recovering at home. You will be more tired than usual, and you will need to focus on good nutrition, hydration, and simply resting. The recovery period from COVID - especially when severe - can take several weeks. 5. continue your incentive spirometry and flutter valve as much as possible over the next week. 6. if you can please prone (tummy time) several times each day over the next week. See handout. 7. your liver function tests are mildly high from your COVID infection. Please avoid tylenol and alcohol until these are rechecked in the office. You can take motrin [id number] as needed for discomfort/mild pain. 8. see your family doctor THIS COMING WEEK. 9. obtain a flu shot in about a month as we anticipate this winter being a busy flu season. 10. consider the COVID vaccine in about 3-4 months time; please speak to your family doctor about this. 11. your blood work suggested that you are a "pre-diabetic." Please speak to your family doctor about this. Your hemoglobin a1c was 6% -- see handout. 12. check your pulse oximeter on your finger several times daily. If your oxygen levels are 90% or more consistently these are acceptable. If you are less than 90% consistently please seek medical attention. return to [facility] if - * you have recurrent fevers over 100.4 degrees * you have worsening shortness of breath * you have chest pains * you have oxygen levels with your pulse oximeter LESS THAN 90% consistently * any other concerns Continue to feel better and Happy Thanksgimanolo, Dr Jensen Pending Studies at Discharge: No Stand-Alone Forms: My [facility], Smoking Cessation Medications and DC Order Prescriptions: New albuterol sulfate [Ventolin HFA] 90 mcg/actuation Hfa Aerosol Inhaler 2 puff inhalation Q4R PRN (Reason: cough/wheeze/shortness of breath) Qty: 1 RF: 0 ondansetron 4 mg tablet,disintegrating 4 mg PO Q6H PRN (Reason: nausea and vomiting) Qty: 10 RF: 0 Continued lisinopril [Zestril] 5 mg tablet 5 mg PO QAM 30 Days Qty: 90 RF: 3 clopidogrel 75 mg tablet 75 mg PO DAILY Qty: 90 RF: 3 atorvastatin 40 mg tablet 40 mg PO QAM 30 Days Qty: 90 RF: 3 aspirin 81 mg tablet,delayed release (DR/EC) 81 mg PO DAILY Qty: 90 RF: 3 gabapentin 100 mg capsule 100 mg PO .COMPLEX PRN (Reason: Pain) RF: 0 Discharge Orders: Discharge Order (Routine); Ordered 03/16/21 Ordered By: Brian Littlejohn/Other Patient Handouts: A1C, Caring for Someone Who Has COVID-19, Disinfecting Your Home of COVID-19, How COVID-19 Spreads, Prediabetes, 2019- nCoV, COVID-19 Home Care, Proning COVID-19 Admission Data Admit Date/Time: 03/13/21 22:06 Attending Provider: Brian Jensen Admit Provider: Lara Clinton Primary Care Provider: Liya Jaquez Other Interventions: Discharge Summary Assessment (RN) Last Done: 03/16/21 11:44 Coding Level of Care Code D/C DAY MANAGEMENT >30 MINS Diagnoses Acute respiratory failure with hypoxia J96.01 Pneumonia due to 2019 novel coronavirus U07.1; J12.82 Asthma J45.909 Dyslipidemia E78.5 CAD (coronary artery disease) I25.10 GERD (gastroesophageal reflux disease) K21.9 Transaminitis R74.01 DVT prophylaxis Z29.9 Hyperglycemia R73.9
== END 2021-03-16 12:30 | disposition home or self-care (01) | DRG 177 ==
LOC: ED 15:44 → SUATTDRO 22:06 → EDINP 22:06 → 3E 03-14 19:30
DX: E44.1 Mild protein-calorie malnutrition; U07.1 COVID-19; I25.2 Old myocardial infarction; R74.8 Abnormal levels of other serum enzymes; R74.01 Elevation of levels of liver transaminase levels; J45.909 Unspecified asthma, uncomplicated; R73.9 Hyperglycemia, unspecified; E78.5 Hyperlipidemia, unspecified; I25.10 Atherosclerotic heart disease of native coronary artery without angina pectoris; A08.39 Other viral enteritis; K21.9 Gastro-esophageal reflux disease without esophagitis; Z79.82 Long term (current) use of aspirin; Z95.5 Presence of coronary angioplasty implant and graft; Z79.02 Long term (current) use of antithrombotics/antiplatelets; J96.01 Acute respiratory failure with hypoxia; J12.82 Pneumonia due to coronavirus disease 2019; Z79.899 Other long term (current) drug therapy; Z88.5 Allergy status to narcotic agent

== ENCOUNTER 2023-05-04 08:44 | Observation (INO) ==
[2023-05-04 09:51] LABS: Hematocrit (blood only) 54.2 % (42.0-52.0); Hemoglobin 18.8 g/dl (14.0-18.0); Immature Granulocytes # (auto) 0.04 K/uL (0.01-0.20); Immature Granulocytes % (auto) 0.4 %; Lymphocytes # (auto) 2.45 K/uL (1.20-3.40); Mean Corpuscular Hgb Conc 34.7 g/dL (32.0-36.0); Mean Corpuscular Volume 89.3 fL (80.0-100.0); Mean Platelet Volume 10.1 fL (9.4-12.4); Monocytes # (auto) 0.81 K/uL (0.11-0.59); Monocytes % (auto) 7.9 %; Neutrophils # (auto) 6.72 K/uL (1.40-6.50); Neutrophils % (auto) 65.7 %; Platelet Count 268 K/uL (130-400); RDW Standard Deviation 42.5 fL (36.4-46.3); Red Blood Count 6.07 M/uL (4.70-6.10); White Blood Count 10.22 K/ul (4.8-10.8)
--- NOTE | 2023-05-04 09:56 | Electrocardiogram Report ---
Test Reason : Blood Pressure : / mmHG Vent. Rate : 128 BPM Atrial Rate : 000 BPM P-R Int : 000 ms QRS Dur : 086 ms QT Int : 316 ms P-R-T Axes : 000 -17 012 degrees QTc Int : 461 ms Atrial fibrillation with rapid ventricular response Incomplete right bundle branch block Low voltage QRS Abnormal ECG When compared with ECG of 25-SEP-2022 00:16, Atrial fibrillation has replaced Sinus rhythm Vent. rate has increased BY 63 BPM Confirmed by Cody Aponte ([id number]) on 05/04/2023 9:56:45 AM Referred By: Confirmed By:Cody Aponte
--- NOTE | 2023-05-04 10:04 | Emergency Department Note ---
History of Present Illness General Chief complaint: Cardiac Assessment Stated complaint: HEART PALPS, DIZZY, SOB, CARDIAC HISTORY Time Seen by Provider: 05/04/23 09:51 Source: patient, RN notes reviewed and old records reviewed ([facility] office note on 09-15-2022 for wellness) Mode of arrival: ambulatory Limitations: no limitations History of Present Illness This patient is a 57-year-old male who has a history of cardiac disease with stents, comes in saying "I think I am in A-fib" he has no history of A-fib. For the last 5 days or so he says he is felt as it comes and goes it feels like his heart is beating floppy. He is not exactly sure when it started. He does feel short of breath when he gets it. no chest pain, no lower extremity pain or swelling. he had been on Plavix but is no longer on a blood thinner . he only takes 3 medications including baby aspirin lisinopril and atorvastatin. No fall or trauma. No blood or melena stool Home Medications Medication Instructions Recorded Confirmed Type aspirin 81 mg tablet,delayed 81 mg PO DAILY #90 tabs 08/02/20 10/02/22 Rx release atorvastatin 40 mg tablet 40 mg PO QAM 30 days #90 tabs 03/07/21 05/04/23 Rx clopidogrel 75 mg tablet 75 mg PO DAILY #90 tabs 03/07/21 05/04/23 Rx lisinopril 5 mg tablet (Zestril) 5 mg PO QAM 30 days #90 tabs 03/07/21 05/04/23 Rx albuterol sulfate 90 mcg/actuation 2 puff inhalation Q4H PRN 09/25/22 05/04/23 History aerosol inhaler (Ventolin HFA) cough/wheeze/shortness of breath fluticasone propionate 50 2 spray intranasal DAILY PRN 09/25/22 05/04/23 History mcg/actuation nasal Congestion spray,suspension nitroglycerin 0.4 mg sublingual 0.4 mg sublingual DIRECTED 05/04/23 05/04/23 History tablet Allergies Allergy/AdvReac Type Severity Reaction Status Date / Time hydrocodone [From Vicodin] AdvReac Intermediate BOWLES, Verified 10/02/22 10:18 GI-UPSET Past Med/Surg History Medical History Hyperglycemia Transaminitis Pneumonia due to 2019 novel coronavirus Acute respiratory failure with hypoxia Asthma Lumbar post-laminectomy syndrome NSTEMI (non-ST elevated myocardial infarction) 12/28/20 Dyslipidemia CAD (coronary artery disease) Non-ST elevation (NSTEMI) myocardial infarction GERD (gastroesophageal reflux disease) Chronic back pain GERD (gastroesophageal reflux disease) Hx of fracture of ankle right - Has had 2 surgeries on ankle Lumbar spondylosis Lumbar disc herniation Bilateral sacroiliitis Lumbar radiculitis Spasm of back muscles Olecranon bursitis Surgical History S/P coronary artery stent placement 12/28/20 History of back surgery History of ankle surgery right Social History Smoking Status: Never smoker Second Hand Exposure: No; Do You Dip or Chew Tobacco: No; Hx Alcohol Use: Yes Alcohol type: beer Hx Substance Use: No Preferred Language: Swedish Communication Ability: Effective Visual Impairment: No Limitations [employer] Operator Required: No Beliefs That Will Affect Care: None marital status: Current Living Situation: Spouse Feels Safe at Home: Yes Assistive Devices: Glasses Review of Systems A total of 10 systems reviewed and were otherwise negative Physical Exam Vital Signs Vital Signs - 24 hr 05/04/23 09:10 05/04/23 10:06 05/04/23 10:07 Temperature 36.9 C Temperature Source Temporal Artery Scan Pulse Rate 95 H 122 H 124 H Pulse Rate from SpO2 Sensor Respiratory Rate 18 12 Respiratory Effort / Characteristics Non-Labored Spontaneous Respiratory Depth Normal Respiratory Pattern Regular Blood Pressure 122/87 145/98 H Blood Pressure Mean 98 113 Blood Pressure Position Sitting Pulse Oximetry 97 98 Oxygen Delivery Method Room Air Room Air Sepsis Recent Fever Within 48 Hours No Sepsis New/Unexplained Change in Mental Status N/A Sepsis Action Taken by Nursing No Action Required 05/04/23 10:25 05/04/23 10:35 05/04/23 10:35 Temperature Temperature Source Pulse Rate 130 H 126 H Pulse Rate from SpO2 Sensor Respiratory Rate 15 Respiratory Effort / Characteristics Respiratory Depth Respiratory Pattern Blood Pressure 112/93 112/93 Blood Pressure Mean 99 Blood Pressure Position Pulse Oximetry 98 98 Oxygen Delivery Method Room Air Room Air Sepsis Recent Fever Within 48 Hours Sepsis New/Unexplained Change in Mental Status Sepsis Action Taken by Nursing 05/04/23 10:44 05/04/23 10:45 05/04/23 11:00 Temperature Temperature Source Pulse Rate 94 H 88 116 H Pulse Rate from SpO2 Sensor 78 90 Respiratory Rate 16 16 16 Respiratory Effort / Characteristics Respiratory Depth Respiratory Pattern Blood Pressure 113/85 106/84 120/97 Blood Pressure Mean 94 91 104 Blood Pressure Position Pulse Oximetry 96 97 Oxygen Delivery Method Room Air Room Air Sepsis Recent Fever Within 48 Hours Sepsis New/Unexplained Change in Mental Status Sepsis Action Taken by Nursing 05/04/23 11:10 Temperature Temperature Source Pulse Rate 112 H Pulse Rate from SpO2 Sensor 74 Respiratory Rate 24 Respiratory Effort / Characteristics Respiratory Depth Respiratory Pattern Blood Pressure Blood Pressure Mean Blood Pressure Position Pulse Oximetry 95 Oxygen Delivery Method Sepsis Recent Fever Within 48 Hours Sepsis New/Unexplained Change in Mental Status Sepsis Action Taken by Nursing General: Well developed well nourished middle-age male who appears in no acute distress, breathing comfortably on room air. Normal speech HEENT: Normal cephalic atraumatic. Pupils are equal round and reactive to light. Extraocular movements are intact. Oropharynx is pink with moist mucous membranes. No swelling of the mouth lips or tongue. Neck: Supple with a midline trachea. No meningeal signs or stiffness, no JVD or bruits. No Stridor. Chest: Clear to auscultation bilaterally. No wheezes or rhonchi. No increased work of breathing. Heart : Irregularly irregular and rhythm without murmurs or gallops. Abdomen: Soft nontender, nondistended without rebound guarding or rigidity. Extremities: No cyanosis clubbing or edema. No calf tenderness or assymetry Spine/Back. Non tender to palpation. No CVA tenderness Skin: Good turgor without rashes. Neurologic exam: Cranial nerves two through 12 are intact. Motor and sensation are intact and symmetrical throughout. Course Administered Medications Discontinued Medications Apixaban (Apixaban 5 Mg Tablet) 5 mg PO ONE ONE Stop: 05/04/23 11:46 Last Admin: 05/04/23 11:48 Dose: 5 mg Documented By: TRUONG Metoprolol Tartrate (Metoprolol Tartrate 1 Mg/Ml Vial) 5 mg IV NOW STA Stop: 05/04/23 10:27 Last Admin: 05/04/23 10:35 Dose: 5 mg Documented By: EMERSON Medical Decision Making Differential Diagnosis Arrhythmia, A-fib, electrolyte or metabolic abnormality, acute coronary syndrome, CHF, electrolyte or metabolic abnormality, PE, thyroid Medical Records Attestation: I reviewed the patient's medical records. Home Medications Current Medication List: was personally reviewed by me Laboratory Data Attestation: I reviewed the patient's lab results. 05/04/23 09:35 05/04/23 11:26 Lab Results 05/04/23 05/04/23 Range/Units 09:35 10:16 WBC 10.22 (4.8-10.8) K/ul RBC 6.07 (4.70-6.10) M/uL Hgb 18.8 H (14.0-18.0) g/dl Hct 54.2 H (42.0-52.0) % MCV 89.3 (80.0-100.0) fL MCH 31.0 (25.0-34.0) pg MCHC 34.7 (32.0-36.0) g/dL RDW Std Deviation 42.5 (36.4-46.3) fL RDW Coeff of Kaylynn 13.0 (11.5-14.5) % Plt Count 268 (130-400) K/uL MPV 10.1 (9.4-12.4) fL Immature Gran % (Auto) 0.4 % Neut % (Auto) 65.7 % Lymph % (Auto) 24.0 % Flagler % (Auto) 7.9 % Eos % (Auto) 1.0 % Baso % (Auto) 1.0 % Neut # (Auto) 6.72 H (1.40-6.50) K/uL Lymph # (Auto) 2.45 (1.20-3.40) K/uL Flagler # (Auto) 0.81 H (0.11-0.59) K/uL Eos # (Auto) 0.10 (0.00-0.50) K/uL Baso # (Auto) 0.10 (0.00-0.20) K/uL Immature Gran # (Auto) 0.04 (0.01-0.20) K/uL PT 11.1 (9.0-12.0) Seconds INR 1.0 (0.9-1.1) APTT 30 (21-31) Seconds PTT Ratio 1.1 Sodium 137 (136-145) mmol/L Potassium TNP Chloride 108 H (98-107) mmol/L Carbon Dioxide 21 (21-32) mmol/L Anion Gap 8 (3-11) BUN 13 (6-23) mg/dl Creatinine 1.04 (0.6-1.4) mg/dl Est Cr Clr Drug Dosing 97.1 ml/min Est GFR ( Amer) 90.7 ml/min Est GFR (Non-Af Amer) 78.2 ml/min BUN/Creatinine Ratio 12.5 (10-20) Glucose 118 H (70-99(Fasting)) mg/dl Calcium 9.6 (8.6-10.3) mg/dl Total Bilirubin 1.1 H (0.2-1.0) mg/dl AST TNP ALT 58 H (7-52) U/L Alkaline Phosphatase 83 (34-104) U/L Troponin I High Sens 9.0 (0-20) pg/ml Total Protein 6.8 (6.0-8.3) gm/dl Albumin 4.1 (3.4-5.0) gm/dl Globulin 2.7 (2.5-4.0) gm/dl Albumin/Globulin Ratio 1.5 (0.9-2) Imaging Data Attestation: I personally reviewed and interpreted this imaging study as follows: My Impression: Chest x-ray-no acute infiltrate, failure, pneumothorax seen. Radiologist's Impression: Chest X-Ray 05/04/23 09:55 XR chest 1V portable HISTORY: Palpitations. Chest pain, nonspecific COMPARISON: Chest 09/25/2022. FINDINGS: The cardiac silhouette remains borderline enlarged. No pneumothorax. No pleural effusions. The lungs are clear. No evidence for pulmonary edema. No acute fractures identified. IMPRESSION: No significant change compared to the prior study. No acute process. ACT 112: Negative or not required by law. Electronically signed by: Jose Harley M.D. 05/04/2023 10:20 AM ECG Data Attestation: I personally reviewed and interpreted this ECG as follows: Indication: + palpitations Rate (beats per minute): 128 Rhythm: + atrial fibrillation (With rapid ventricular response) ECG Intervals/blocks: + Normal QRS, + Normal QT and + Normal DE ECG Ebro: + Normal ECG ST segments: + Normal ST segments ECG Findings: no PACs or no PVCs Comparison ECG Date: from (09/25/2022) Change: the following changes noted (A-fib has replaced normal sinus) MDM Narrative This patient comes in described above. I did see him out in triage to help expedite his care. He looks well and is stable vital signs. he does however have rapid A-fib this apparently is new for him . he is not exactly sure when it started and thinks is been going on for at least 5 days. IV access was established , EKG, chest x-ray, and multiple blood testing was obtained. I did work to get him back on the monitor so we could further evaluate his rhythm and treat him. His EKG does show A-fib with a rapid ventricular response. He has no significant electrolyte or metabolic abnormalities, his troponin was not elevated. Chest x-ray does not show congestive heart failure, pneumonia, pneumothorax. He was given Lopressor 5 mg IV. This did help with the rate however he is still in A-fib. I do think he needs to be admitted/observed due to new onset A-fib and rapid ventricular response. Have consulted the [facility] hospitalist and talked him at length about this they saw the patient ER for these measures. Continuous quality assurance monitor final: Orders placed in EMR for continuous cardiac monitoring, upon my evaluation patient noted to be in A-fib: Rapid A-fib with a rate of about 115 Impression & Plan Atrial fibrillation with RVR, S/P coronary artery stent placement, Atrial fibrillation, new onset, Palpitations Discharge Plan Visit Data Chief Complaint: Cardiac Assessment Stated Complaint: HEART PALPS, DIZZY, SOB, CARDIAC HISTORY ED Provider: José Bangura Discharge Problem: Atrial fibrillation with RVR, S/P coronary artery stent placement, Atrial fibrillation, new onset, Palpitations
--- OUTSIDE RECORDS SUMMARY | 2023-05-04 10:11 | External Medical Summary | Continuity of Care Document ---
Author Name Unknown Organization [place] [id number] Address [address] [place] [phone] Care Team Providers Care Merchandise Planning Manager Name Role Phone Liya Jaquez Elinor Primary Care Physician [phone] [id number] Date(s): 11/27/22 - 11/27/22 [facility] [employer] [place] [id number] Medicine [address] [phone] Encounter Diagnosis Lumbar radiculopathy, right(Discharge Diagnosis) - 11/27/22 Failed back syndrome, lumbar(Discharge Diagnosis) - 11/27/22 Discharge Disposition: Home or Self Care Attending Physician: MD Lizz, Danny Demarco Allergies, Adverse Reactions, Alerts No Known Allergies Immunizations Given and Recorded Vaccine Date Status Refusal Reason influenza virus vaccine, inactivated 02/21/13 Give n Medications aspirin 81 mg oral tablet, disintegrating Start: 01/05/20 11:19:00 EDT, 1 tab, PO, Daily Start Date: 01/05/20 Status: Ordered atorvastatin 40 mg oral tablet Start: 09/12/22 14:55:00 EDT, See Instructions, Disp# 90 tab, Refills: 3, TAKE 1 TABLET BY MOUTH ONCE DAILY, Pharmacy: [facility] Start Date: 09/12/22 Status: Ordered cyclobenzaprine 5 mg oral tablet Start: 10/21/22 14:22:00 EDT, 1 tab, PO, bid, Disp# 30 tab, prn spasm, PRN: as needed for spasm, Pharmacy: [facility] Start Date: 10/21/22 Status: Ordered lisinopril 5 mg oral tablet Start: 09/12/22 14:55:00 EDT, See Instructions, Disp# 90 tab, Refills: 3, TAKE 1 TABLET BY MOUTH ONCE DAILY, Pharmacy: [facility] Start Date: 09/12/22 Status: Ordered Medrol Dosepak 4 mg oral tablet Start: 10/21/22 14:22:00 EDT, See Instructions, Disp# 21 tab, Take as directed on package labeling for 6 days., Pharmacy: [facility] Start Date: 10/21/22 Stop Date: 10/27/22 Status: Ordered nitroglycerin 0.4 mg sublingual tablet Start: 09/29/22 14:07:00 EDT, See Instructions, Disp# 100 tab, Refills: 3, 1 tab not to exceed 3 doses/15 min--if pain persists, seek medical attention, Pharmacy: [facility] Start Date: 09/29/22 Status: Ordered ProAir HFA 90 mcg/inh inhalation aerosol Start: 09/12/22 14:56:00 EDT, See Instructions, Disp# 3 each, Refills: 3, INHALE 2 PUFFS 4 TIMES A DAY., Pharmacy: [facility] Start Date: 09/12/22 Status: Ordered Mental Status 11/27/22 Barriers to Learning one year None evide nt Mandatory Health Literacy Documentation Yes Health Literacy Communication Barriers N ever Primary Language Guyanese Problem List Condition Confirmation Course Effective Dates Status H ealth Status Informant Acute sinusitis Confirmed Active CAD (coronary artery disease) Confirmed Active Elevated blood pressure Confirmed Active Kidney stone Confirmed Active Lumbago Confirmed Active Failed back syndrome, lumbar Confirmed Active Lumbar radiculopathy, right Confirmed Active Non-ST elevation ID (NSTEMI) Confirmed Active Osteoarthritis of right elbow Confirmed Active TP (tinea pedis) Confirmed Active Tinnitus Confirmed Active Weight disorder Confirmed Active Diagnosis Diagnosis Type Effective Dates Health Status Cl inical Service Informant Lumbar radiculopathy, right Discharge Diagnosis 11/27/22 Failed back syndrome, lumbar Discharge Diagnosis 11/27/22 Procedures Procedure Date Related Diagnosis Body Site Status Chest x-ray 1 03/13/21 Completed X-ray tomography of lumbar spine 2 08/07/20 Completed Cardiac catheterisation 3 12/29/19 Completed Echocardiogram 4 12/29/19 Complete d Laparoscopic cholecystectomy 5 07/29/18 Completed Ultrasound treatment to abdomen 6 07/29/18 Completed Spine X-ray 7 05/16/18 Completed Laminectomy 8 05/06/18 Completed Epidural steroid injection 9 10/06/17 Completed Upper GI endoscopy 10 02/10/17 Com pleted Right elbow olecranon bursec duarte 11, 12 04/24/16 Completed X-ray of thoracic spine 13 02/12/16 Completed lumbar epidural steroid injection 14 10/02/15 Completed Lumbar epidural steroid injection 15 08/29/[address] angiography of the chest, abdomen, and pelvis 16 07/04/15 Completed MRI of lumbar spine with con trast without contrast 17 07/04/15 Completed MRI of thoracic spine withou t contrast 18 07/04/15 Completed Lumbar spine 3 views 19 07/02/15 C ompleted Ankle fracture [address] [place] [address] Impression: 1. Multifocal airspace opacities may represent atelectasis, pneumonia, contusion, and/or aspiration [address] [place] [address] Impression: 1. Left paracentral foraminal disc protrusion at L4-5 causing left lateral recess stenosis with impingement of left L5 traversing nerve root with associated moderate left neural foraminal stenosis atthis level. This is unchanged when compared to 09/15/2016 exam 2. Moderate left neural foraminal stenosis at L5-S1, unchanged [address] [place] [address] Impression: 1. Mulltivessel coronary artery disease. 99% acute mid OM 2. 60 - 708% mid LAB (significant by FFR 0.75) 2. Successful PCI of mid OM 2 with 2 overlapping drug-eluting stents ( 3.0 x 15, 2.75 x 18 mm [place]) 3. Successful PCI of mid LAD with single drug-eluting stent (3.5 x 18 mm [place]; postdilated with 4.0NC) 4[facility] Impression: 1. Normal LV size, wall motion, systolic function. EF 60-65%. Moderate LVH. Mildly dilated RV with normal systolic function. Mild right atrial dilation. No significant valvular abnormality. RVSP 36 5[facility] 1. Bladder is distended. No pericholecystic fluid or gallbladder wall thickening. Some sludge but no gallstones. No [facility] duct dil[facility] Impression: 1. No acute bony abnormality is seen involving the lumbosacral spine 8Procedure: Include laminectomy bilaterally, L4-L5, foraminotomy, partial facetectomy, lumbar spine 9L5-S1 10Normal esophagus. Normal stomach. Normal examined duodenum. No specimens collected. 11Pathology: 1. Chronic bursitis, mild. 2. Focal hemosiderin deposition consistent with old hemorrhage. 3. No acute inflammatory process identified. 12[facility] 13[facility] Impression: 1. Mild degenerative change as above with no radiographic evidence of fracture or malalignment involving the thoracic spine 64I0-U3 at Pain Management. 15L4/L5 16[facility] Impression: 1. No evidence for aortic dissection 2. No acute findings within the chest, abdomen, or pelvis 17[facility] Impression: 1. Changes of degenerative disc disease and facet joint arthropathy. Diffuse disc bulge and mild central protrusion at L4-5 with slight bilateral foraminal compromise. Minimal disc bulge at L5-S1 suggested. 18[facility] Impression: 1. Unremarkable MRI of the thoracic spine 19[facility] Impression: 1. There is no acute bony abnormality seen involving the lumbosacral spine 2. Osteopenia and lumbosacral spondylosis as discussed above 20R 2 surgeries Vital Signs Most recent to oldest [Reference Range]: 1 Temperature [36.5-37.9 DegC] 36.7 DegC (11/27/22 2:54 PM) Heart Rate 85 bpm (11/27/22 2:54 PM) Blood Pressure 128/84mmHg (11/27/22 2:54 PM) Social History Social History Type Response Smoking Status Never smoked cigaret ana paula Sex Male Primary care Note * MD Lizz, Danny Demarco: PERFORM Event Display: Ortho Outpt Note Authored Date: [id number] Name:DONALDO FLANAGAN Patient Number:[id number] :1965 Date of Service:11/27/2022 Preoperative diagnosisfailed back syndrome with persistent right lumbar radiculopathy postoperative diagnosis same Procedure: Caudal epidural steroid injection under fluoroscopic guidance Indications: Patient is a 57-year-old malewho has had bilateral laminectomypartial facetand foraminotomyand has persistent radicular pain he presents todayfor a caudal epidural injection provided with relief of his radiculopathy. Physical examination:Patient is some point tenderness to palpation over his lumbar spinehe hasno focal weaknessorstraight leg raises he does have some diminished sensation on the lateral thigh of the right lower extremity. Consent:Verbal consent was obtained from the patient. Prior to the procedure timeout was done for safety to confirm patient's full name date of birthinjection type location and approach Physical procedure: Patient was maintained in a prone position backside was cleansed with Betadine [id number] was used to identify in a lateral fashion the sacral hiatus overlying skin was anesthetized with 4 mL of lidocaine 1% with a 25-gauge 1/2 inch needle. [id number] 3-1/2 inch spinal needle was easily directed in the canalhe then underwent injection after negative aspiration of 40 mg Depo-Medrol and 4 mL of preservative-free some chloride. Towards the end of the injection he felt a pressure feeling which was transient. Images from the procedure were saved and downloaded to PACS. Disposition: Patient will be discharged home once discharge criteria been met Electronic Signature on File CC: Liya Jaquez PA-C,[facility] [address] [facility] [address] [place] [address] Electronically Reviewed/Signed by: Danny Hollingsworth MD Author Signature Dt/Tm:11/27/2022 03:22 PM [employer] Vehicle Operator of Orthopaedics & Rehabilitation and Physical Medicine & Rehabilitation [facility] .Outpt Proc * WALTER Humphrey, Gina Cordova: PERFORM Event Display: .Outpt Proc Authored Date: [id number] OUTPATIENT PROCEDURE Name: DONALDO FLANAGAN Patient Number: [id number] : 1965 Date of Service: 11/27/2022 OUTPATIENT PROCEDURE NOTE Is patient no Procedure performed_Caudal Epidural Steroid Injection [id number] byDr. Danny Hollingsworth MD Resuscitation equipment checkedyes Anticoagulants stoppedN/A Patient has a driveryes xray guidance usedyesConscious sedationnoTime out completedyes consent signedyes Allergies checkedyesNKA Diabeticno PositionPronePre procedure pain level _5__/10 Skin PrepBetadineSterile drapes usedyes Skin Local Anesthetic: Needle ___25__ga ____1.5__in Lidocaile __1___%__4___ml Other T: 36.7 C HR: 85 SpO2: 96% BP: 128/84 Block Needle _25_GA_3.5_InchesType - Epidural spinal needle Procedure medication used Cortical Steroids __40_mg MethylprednisoloneLocal Anesthetic % ml _- NSS 4ml TimeDrug/Event/[id number] Comments 1514 - Procedure complete 122/80 77 100% Status:Pain on discharge __4__/10ComplicationsNo Neurologically stableYes DispositionDischarged Home with aftercare instructions given Follow up __4___weeks Electronic Signature on File Electronically Reviewed/Signed by: Gina Humphrey Author Signature Dt/Tm:11/27/2022 03:21 PM Electronically Reviewed/Signed by: MD Joe Ngigner Signature Dt/Tm: 11/27/2022 03:23 PM [employer] Vehicle Operator of Orthopaedics & Rehabilitation and Physical Medicine & Rehabilitation [facility] Patient Care team information Care Team Personnel Name: OJRDI Jaquez, Liya Aldrich Position: Physician Asst [place] - Family Med Member Role: Primary Care Provider Address: Address: [address] [place] [address] Care Team Related Persons Name: GRACIE FLANAGAN Address: home [address], [phone] Name: GRACIE FLANAGAN Address: home [address], [phone]
--- OUTSIDE RECORDS SUMMARY | 2023-05-04 10:11 | External Medical Summary | Continuity of Care Document ---
Author Name Unknown Organization [facility] [address] [place], [place] [address]A Address [address] [place] [phone] Care Team Providers Care Patient Relations Representative Name Role Phone Liya Jaquez Primary Care Physician [phone] Encounter [facility] [id number] Date(s): 01/02/23 - 01/02/23 [facility] [employer] [facility] [address] [place] [address] Encounter Diagnosis Lumbar radiculopathy, right(Discharge Diagnosis) - 01/02/23 Failed back syndrome, lumbar(Discharge Diagnosis) - 01/02/23 Discharge Disposition: Home or Self Care Attending Physician: MD Hollingsworth Gregory G Referring Physician: MD Hollingsworth Gregory G Allergies, Adverse Reactions, Alerts No Known Allergies Assessment and Plan Extracted from: Title:Follow Up Visit Author:MD Hollingsworth Gregory G Date:01/02/23 1.Failed back syndrome, lumbar Stable 2.Lumbar radiculopathy, right Complete resolution of his radicular pain following a caudal epidural injection and he will follow-up with us on a as needed or as needed basis. Immunizations Given and Recorded Vaccine Date Status Refusal Reason influenza virus vaccine, inactivated 02/21/13 Give n Medications aspirin 81 mg oral tablet, disintegrating Start: 01/05/20 11:19:00 EDT, 1 tab, PO, Daily Start Date: 01/05/20 Status: Ordered atorvastatin 40 mg oral tablet Start: 09/12/22 14:55:00 EDT, See Instructions, Disp# 90 tab, Refills: 3, TAKE 1 TABLET BY MOUTH ONCE DAILY, Pharmacy: [facility] Start Date: 09/12/22 Status: Ordered cyclobenzaprine 5 mg oral tablet Start: 10/21/22 14:22:00 EDT, 1 tab, PO, bid, Disp# 30 tab, prn spasm, PRN: as needed for spasm, Pharmacy: [facility] Start Date: 10/21/22 Status: Ordered lisinopril 5 mg oral tablet Start: 09/12/22 14:55:00 EDT, See Instructions, Disp# 90 tab, Refills: 3, TAKE 1 TABLET BY MOUTH ONCE DAILY, Pharmacy: [facility] Start Date: 09/12/22 Status: Ordered Medrol Dosepak 4 mg oral tablet Start: 10/21/22 14:22:00 EDT, See Instructions, Disp# 21 tab, Take as directed on package labeling for 6 days., Pharmacy: [facility] Start Date: 10/21/22 Stop Date: 10/27/22 Status: Ordered nitroglycerin 0.4 mg sublingual tablet Start: 09/29/22 14:07:00 EDT, See Instructions, Disp# 100 tab, Refills: 3, 1 tab not to exceed 3 doses/15 min--if pain persists, seek medical attention, Pharmacy: [facility] Start Date: 09/29/22 Status: Ordered ProAir HFA 90 mcg/inh inhalation aerosol Start: 09/12/22 14:56:00 EDT, See Instructions, Disp# 3 each, Refills: 3, INHALE 2 PUFFS 4 TIMES A DAY., Pharmacy: [facility] Start Date: 09/12/22 Status: Ordered Mental Status 01/02/23 Barriers to Learning one year None evide nt Mandatory Health Literacy Documentation Yes Health Literacy Communication Barriers N ever Primary Language Latvian Problem List Condition Confirmation Course Effective Dates Status H ealth Status Informant Acute sinusitis Confirmed Active CAD (coronary artery disease) Confirmed Active Elevated blood pressure Confirmed Active Kidney stone Confirmed Active Lumbago Confirmed Active Failed back syndrome, lumbar Confirmed Active Lumbar radiculopathy, right Confirmed Active Non-ST elevation [place] (NSTEMI) Confirmed Active Osteoarthritis of right elbow Confirmed Active TP (tinea pedis) Confirmed Active Tinnitus Confirmed Active Weight disorder Confirmed Active Diagnosis Diagnosis Type Effective Dates Health Status Cl inical Service Informant Lumbar radiculopathy, right Discharge Diagnosis 01/02/23 Failed back syndrome, lumbar Discharge Diagnosis 01/02/23 Procedures Procedure Date Related Diagnosis Body Site [...] C ompleted Ankle fracture [address] [place] [address] Impression: 1. Multifocal airspace opacities may represent atelectasis, pneumonia, contusion, and/or aspiration [address] [place] [address] Impression: 1. Left paracentral foraminal disc protrusion at L4-5 causing left lateral recess stenosis with impingement of left L5 traversing nerve root with associated moderate left neural foraminal stenosis atthis level. This is unchanged when compared to 09/15/2016 exam 2. Moderate left neural foraminal stenosis at L5-S1, unchanged [address] [place] [address] Impression: 1. Mulltivessel coronary artery disease. 99% acute mid OM 2. 60 - 708% mid LAB (significant by FFR 0.75) 2. Successful PCI of mid OM 2 with 2 overlapping drug-eluting stents ( 3.0 x 15, 2.75 x 18 mm [place]) 3. Successful PCI of mid LAD with single drug-eluting stent (3.5 x 18 mm Raoul; postdilated with 4.0NC) [address] [place] [address] Impression: 1. Normal LV size, wall motion, systolic function. EF 60-65%. Moderate LVH. Mildly dilated RV with normal systolic function. Mild right atrial dilation. No significant valvular abnormality. RVSP [address] [place] [address] 1. Bladder is distended. No pericholecystic fluid or gallbladder wall thickening. Some sludge but no gallstones. No bile duct dilatation [facility] Impression: 1. No acute bony abnormality is seen involving the lumbosacral spine 8Procedure: Include laminectomy bilaterally, L4-L5, foraminotomy, partial facetectomy, lumbar spine 9L5-S1 10Normal esophagus. Normal stomach. Normal examined duodenum. No specimens collected. 11Pathology: 1. Chronic bursitis, mild. 2. Focal hemosiderin deposition consistent with old hemorrhage. 3. No acute inflammatory process identified. [facility] 13[facility] Impression: 1. Mild degenerative change as above with no radiographic evidence of fracture or malalignment involving the thoracic spine 30I2-L1 at Pain Management. 15L4/L5 [facility] Impression: 1. No evidence for aortic dissection 2. No acute findings within the chest, abdomen, or pelvis [facility] Impression: 1. Changes of degenerative disc disease and facet joint arthropathy. Diffuse disc bulge and mild central protrusion at L4-5 with slight bilateral foraminal compromise. Minimal disc bulge at L5-S1 suggested. [facility] Impression: 1. Unremarkable MRI of the thoracic spine 19[facility] Impression: 1. There is no acute bony abnormality seen involving the lumbosacral spine 2. Osteopenia and lumbosacral spondylosis as discussed above 20R 2 surgeries Vital Signs Most recent to oldest [Reference Range]: 1 Height 180.6 cm (01/02/23 8:36 AM) Patient Weight 105.4 kg (01/02/23 8:36 AM) Body Mass Index 32.32 kg/m2 (01/02/23 8:36 AM) Social History Social History Type Response Smoking Status Never smoked cigaret ana paula Sex Male Ortho Outpt Note * MD Hollingsworth Gregory G: PERFORM Event Display: Ortho Outpt Note Authored Date: [id number] Chief Complaint Follow up injection. Pain 0 Primary Care Provider JORDI Jaquez Jessica A Referring Provider MD Hollingsworth Gregory G Subjective Patient is a 57-year-old male who follows upafter a caudal epidural steroid injection. He reports he is got upwards of nearly 100% relief from the injection. Hereports that he had some occasional discomfort on the right leg after he had been sitting for 5 hours and standingbut otherwise he is denying any significant pain or functional limitations following the epidural injection. He quantifies pain today as a 1 out of 10 currently 1 out of 10 at the worst 0-10 at the least Objective Vitals & Measurements WT:105.400kg(Dosing) WT:105.4kg Physical Exam Pleasant male seated comfortably in no apparent distress. His injection site was visualized was clean dry and intact. He had normal lower extremity strengthnegative seated straight leg raises and intact sensation distally in his lower extremities. Assessment/Plan 1.Failed back syndrome, lumbar Stable 2.Lumbar radiculopathy, right Complete resolution of his radicular pain following a caudal epidural injection and he will follow-up with us on a as needed or as needed basis. Electronic Signature on File CC: Liya Jaquez PA-C,MPAS [address] [place] [address] Electronically Reviewed/Signed by: Danny Hollingsworth MD Author Signature Dt/Tm:01/02/2023 08:50 AM Family Literacy Coordinator of Orthopaedics & Rehabilitation and Physical Medicine & Rehabilitation [facility] Patient Care team information Care Team Personnel Name: JORDI Jaquez, Liya Aldrich Position: Physician [employer] [facility] - Family Med Member Role: Primary Care Provider Address: Address: [address] [place] [address] [place] Care Team Related Persons Name: GRACIE FLANAGAN Address: home [address] [place] [address], [phone] Name: GRACIE FLANAGAN Address: home [address] [place] [address], [phone]
--- OUTSIDE RECORDS SUMMARY | 2023-05-04 10:11 | External Medical Summary | Continuity of Care Document ---
Author Name Unknown Organization [address] Address [address] [place] [phone] Care Team Providers Care Computing Services Director Name Role Phone Liya Jaquez Primary Care Physician [phone] [id number] Date(s): 02/09/23 - 02/09/[address] [place] [address], [facility] [[email or web address]] [address] [place] [address] [place] [phone] Encounter Diagnosis Pain of left heel(Discharge Diagnosis) - 02/09/23 Discharge Disposition: Home or Self Care Attending Physician: MD Engel Dongsheng Allergies, Adverse Reactions, Alerts No Known Allergies [...] [facility] Start Date: 09/12/22 Status: Ordered cyclobenzaprine [...] min--if pain persists, seek medical attention, Pharmacy: [facility] Start Date: 09/29/22 Status: Ordered ProAir HFA 90 mcg/inh inhalation aerosol Start: 09/12/22 14:56:00 EDT, See Instructions, Disp# 3 each, Refills: 3, INHALE 2 PUFFS 4 TIMES A DAY., Pharmacy: [facility] Start Date: 09/12/22 Status: Ordered Mental Status 02/09/23 Barriers to Learning one year None evide nt Mandatory Health Literacy Documentation Yes Health Literacy Communication Barriers N ever Primary Language Guatemalan Problem List Condition Confirmation Course Effective Dates Status H ealth Status Informant Acute sinusitis Confirmed Active CAD (coronary artery disease) Confirmed Active Elevated blood pressure Confirmed Active Kidney stone Confirmed Active Lumbago Confirmed Active Failed back syndrome, lumbar Confirmed Active Lumbar radiculopathy, right Confirmed Active Non-ST elevation [place] (NSTEMI) Confirmed Active Osteoarthritis of right elbow Confirmed Active TP (tinea pedis) Confirmed Active Tinnitus Confirmed Active Weight disorder Confirmed Active Diagnosis Diagnosis Type Effective Dates Health Status Cl inical Service Informant Pain of left heel Discharge Diagnosis 02/09/23 Procedures Procedure Date Related Diagnosis Body Site [...] ompleted Ankle fracture [address] [place] [address] Impression: 1. Multifocal airspace opacities may represent atelectasis, pneumonia, contusion, and/or aspiration [address] [place] [address] Impression: 1. Left paracentral foraminal disc protrusion at L4-5 causing left lateral recess stenosis with impingement of left L5 traversing nerve root with associated moderate left neural foraminal stenosis atthis level. This is unchanged when compared to 09/15/2016 exam 2. Moderate left neural foraminal stenosis at L5-S1, unchanged [address] [place] [address] Impression: 1. Mulltivessel coronary artery disease. 99% acute mid OM 2. 60 - 708% mid LAB (significant by FFR 0.75) 2. Successful PCI of mid OM 2 with 2 overlapping drug-eluting stents ( 3.0 x 15, 2.75 x 18 mm [place]) 3. Successful PCI of mid LAD with single drug-eluting stent (3.5 x 18 mm Raoul; postdilated with 4.0NC) [facility] Impression: 1. Normal LV size, wall motion, systolic function. EF 60-65%. Moderate LVH. Mildly dilated RV with normal systolic function. Mild right atrial dilation. No significant valvular abnormality. RVSP 36 [facility] 1. Bladder is distended. No pericholecystic fluid or gallbladder wall thickening. Some sludge but no gallstones. No bile duct dilatation [facility] Impression: 1. No acute bony abnormality is seen involving the lumbosacral spine 8Procedure: Include laminectomy bilaterally, L4-L5, foraminotomy, partial facetectomy, lumbar spine 9L5-S1 10Normal esophagus. Normal stomach. Normal examined duodenum. No specimens collected. 11Pathology: 1. Chronic bursitis, mild. 2. Focal hemosiderin deposition consistent with old hemorrhage. 3. No acute inflammatory process identified. 12[facility] 13[facility] Impression: 1. Mild degenerative change as above with no radiographic evidence of fracture or malalignment involving the thoracic spine 28N4-I2 at Pain Management. 15L4/L5 16[facility] Impression: 1. No evidence for aortic dissection 2. No acute findings within the chest, abdomen, or pelvis 17[facility] Impression: 1. Changes of degenerative disc disease and facet joint arthropathy. Diffuse disc bulge and mild central protrusion at L4-5 with slight bilateral foraminal compromise. Minimal disc bulge at L5-S1 suggested. 18[facility] Impression: 1. Unremarkable MRI of the thoracic spine 19[facility] Impression: 1. There is no acute bony abnormality seen involving the lumbosacral spine 2. Osteopenia and lumbosacral spondylosis as discussed above 20R 2 surgeries Vital Signs Most recent to oldest [Reference Range]: 1 Patient Weight 108.3 kg (02/09/23 3:13 PM) Temperature [36.5-37.9 DegC] 36.4 DegC *LOW* (02/09/23 3:13 PM) Respiratory Rate 14 br/min (02/09/23 3:13 PM) Blood Pressure 118/66mmHg (02/09/23 3:13 PM) Cuff Pulse Pressure 52 mmHg (02/09/23 3:13 PM) Social History Social History Type Response Smoking Status Never smoked cigaret ana paula Sex Male Patient Care team information Care Team Personnel Name: JORDI Jaquez, Liya Aldrich Position: Physician Asst Exmpt - Family Med Member Role: Primary Care Provider Address: Address: [address] [place] [id number] Care Team Related Persons Name: YONYELAINE ALCAZARNDY Address: home [address] [facility], [phone] Name: GRACIE FLANAGAN Address: home [address] [facility], [phone]
[2023-05-04 10:17] LABS: Alanine Aminotransferase 58 U/L (7-52); Albumin Globulin Ratio 1.5 (0.9-2); Albumin Level 4.1 gm/dl (3.4-5.0); Alkaline Phosphatase 83 U/L (34-104); Anion Gap 8 (3-11); BUN Creatinine Ratio 12.5 (10-20); Bilirubin,Total 1.1 mg/dl (0.2-1.0); Blood Urea Nitrogen 13 mg/dl (6-23); Calcium 9.6 mg/dl (8.6-10.3); Carbon Dioxide 21 mmol/L (21-32); Chloride 108 mmol/L (98-107); Creatinine Clr Calc Pharmacy 97.1 ml/min; Est GFR (African American) 90.7 ml/min; Est GFR (Non-African American) 78.2 ml/min; Globulin 2.7 gm/dl (2.5-4.0); Glucose 118 mg/dl (70-99(Fasting)); Sodium 137 mmol/L (136-145); Total Protein 6.8 gm/dl (6.0-8.3)
--- NOTE | 2023-05-04 10:21 | XRay Report ---
XR chest 1V portable HISTORY: Palpitations. Chest pain, nonspecific COMPARISON: Chest 09/25/2022. FINDINGS: The cardiac silhouette remains borderline enlarged. No pneumothorax. No pleural effusions. The lungs are clear. No evidence for pulmonary edema. No acute fractures identified. IMPRESSION: No significant change compared to the prior study. No acute process. ACT 112: Negative or not required by law. Electronically signed by: Jose Harley M.D. 05/04/2023 10:20 AM
[2023-05-04] MEDS ORDERED: METOPROLOL TARTRATE 1 MG/ML VIAL IV STA (10:26)
--- NOTE | 2023-05-04 10:43 | History & Physical Report ---
Date of Service May 04, 2023 Assessment & Plan (1) Atrial fibrillation with RVR: Plan: History of CAD as otherwise noted New onset A-fib with symptoms of approximately 5-7 days. This is following extreme stress with the of his young grandson over Justin and following a GI illness with potential electrolyte derangement. Potassium/magnesium are pending redraw to hemolysis Patient is not on metoprolol at baseline due to resting bradycardia. After 5 mg of metoprolol has gone down to 80-110 A-fib on monitor. Discussed risk/benefits of anticoagulation [id number] of 1. +hypertension history. No diabetes although he is prediabetic with last A1c 6.0 diet controlled, and has no CHF. Currently has orthopnea with A-fib RVR but no leg swelling, JVD, or radiographic edema. BNP and echo are pending. Assess for/benefits of anticoagulation for stroke prophylaxis, will anticoagulate with Eliquis at this time. Continue on PCU telemetry Patient has had resting bradycardia in the past and beta-blockers deferred. Recieved mtp5mg IV in ER with improvement in rate, bps low-normal. Calcium channel blockers deferred for same reason, past EF is normal. Amiodarone not recommended due to lack of anticoagulation. Digoxin load if needed, this is not emergently required at this time. Echo ordered for new A-fib, new CHF symptoms/orthopnea, and risk for stress myopathy. BNP is pending Magnesium/potassium levels pending (2) NSTEMI (non-ST elevated myocardial infarction): Plan: - NSTEMI 2020 and PCI with JUAN x 2 to OM 2, JUAN x 1 to LAD No chest pain at time of admission High sensitive troponin is normal EKG A-fib without acute ischemic change Do not suspect ACS at this time. Continue secondary management and plaavix (3) S/P coronary artery stent placement: (4) GERD (gastroesophageal reflux disease): Plan: No symptoms at this time, no acute management Plan Disposition: PCU DVT prophylaxis: Eliquis Diet: Clears CODE STATUS: Full code History of Present Illness Primary Care Provider: Liya Jaquez PA-C Carlos Pederson is a 57-year-old male with a past medical history of NSTEMI 2020 and PCI with JUAN x 2 to OM 2, JUAN x 1 to LAD; hyperlipidemia, GERD, asthma, and tinnitus who presents concerned about A-fib with no prior history of A-fib. Patient has unclear when it started but thinks the symptoms have been around for 5 days to a week. Patient takes Plavix monotherapy is not on a blood thinner. Takes aspirin/lisinopril/atorvastatin. Patient has not been on a beta-lala due to resting bradycardia. Last echo 12/2019 with EF 60-65% and no regional wall motion abnormalities. Patient received metoprolol 5 mg IV in the ER No chest pain trop is normal Pt endorses palpitations for 5-7 days. 8 month old. Grandson and has been under a lot of stress. Had a seizure and suddenly. Great stress since, thought thats what the symptoms were from. 5 days ago heart felt 'floppy like a fish.' shortness of breath has developed and progressively worsened in the last 5 days. HR 100s-158 since the last 5 days. New afib, no history. Was on DAPT, dropped plaavix for asa monotherapy 2 months ago. No hx of warfarin/xarelto/eliquis use. NO nausea, vmoiting. A little loose bowels and had a stomach virus a week ago which seemed to pass. Eating and drinking oK No mediation allergies Did take morning medications today Took two baby aspirin today and yesterday due to the heart feeling NO ches tpain or pressure, just the fluttering feeling. No leg swelling. Does endorse sob much worse when laying flat. New sensation NO history of heart failure, has never been on lasix No tobacco use. No etoh use. NKDA. Full Code Allergies Allergy/AdvReac Type Severity Reaction Status Date / Time hydrocodone [From Vicodin] AdvReac Intermediate BOWLES, Verified 10/02/22 10:18 GI-UPSET Home Medications Medication Instructions Recorded Confirmed Type aspirin 81 mg tablet,delayed 81 mg PO DAILY #90 tabs 08/02/20 10/02/22 Rx release atorvastatin 40 mg tablet 40 mg PO QAM 30 days #90 tabs 03/07/21 10/02/22 Rx clopidogrel 75 mg tablet 75 mg PO DAILY #90 tabs 03/07/21 10/02/22 Rx lisinopril 5 mg tablet (Zestril) 5 mg PO QAM 30 days #90 tabs 03/07/21 10/02/22 Rx albuterol sulfate 90 mcg/actuation 2 puff inhalation Q4H PRN 09/25/22 10/02/22 History aerosol inhaler (Ventolin HFA) cough/wheeze/shortness of breath cephalexin 500 mg tablet 500 mg PO QID 09/25/22 10/02/22 History fluticasone propionate 50 2 spray intranasal DAILY PRN 09/25/22 10/02/22 History mcg/actuation nasal Congestion spray,suspension Past Med/Surg History Medical History (Updated 05/04/23 @ 11:05 by Mat Garrett MD) Hyperglycemia Transaminitis Pneumonia due to 2019 novel coronavirus Acute respiratory failure with hypoxia Asthma Lumbar post-laminectomy syndrome NSTEMI (non-ST elevated myocardial infarction) 12/28/20 Dyslipidemia CAD (coronary artery disease) Non-ST elevation (NSTEMI) myocardial infarction GERD (gastroesophageal reflux disease) Chronic back pain GERD (gastroesophageal reflux disease) Hx of fracture of ankle right - Has had 2 surgeries on ankle Lumbar spondylosis Lumbar disc herniation Bilateral sacroiliitis Lumbar radiculitis Spasm of back muscles Olecranon bursitis Surgical History S/P coronary artery stent placement 12/28/20 History of back surgery History of ankle surgery right Social History Smoking Status: Never smoker Second Hand Exposure: No; Do You Dip or Chew Tobacco: No; Hx Alcohol Use: Yes Alcohol type: beer Hx Substance Use: No Preferred Language: Luxembourgish Communication Ability: Effective Visual Impairment: No Limitations Laryngologist Required: No Beliefs That Will Affect Care: None marital status: Current Living Situation: Spouse Feels Safe at Home: Yes Assistive Devices: Glasses Physical Exam Physical Exam: General: A&Ox3. NAD. Cooperative. HEENT: Atraumatic, normocephalic. THALIA. Vision/hearing intact Pulm: CTAB A&P. -wheezes, -rales, -rhonchi. Symmetrical chest rise. No increased work of breathing. No respiratory distress. Cardiac: tachycardic, irir. Radial pulses intact and symmetrical. No JVD Abdominal: Nontender, nondistended, soft. BS present. Ext: No LE swelling Results & Data Results & Data Vital Signs (Past 12 Hours) Vital Signs Temp Pulse Resp BP Pulse Ox O2 Del Method 05/04/23 10:25 98 Room Air 05/04/23 10:07 124 H 05/04/23 10:06 122 H 12 145/98 H 98 Room Air 05/04/23 09:10 36.9 C 95 H 18 122/87 97 Room Air PG Care Time/CCT Total # of Minutes Spent Total Time Spent with Patient: Total time spent is greater than 50% in coordination of care (as documented) at patient's floor/unit and/or counseling patient: Coding Level of Care Code 06259 INT INP/OBS CARE 3/75MIN Diagnoses Atrial fibrillation with RVR I48.91 NSTEMI (non-ST elevated myocardial infarction) I21.4 S/P coronary artery stent placement Z95.5 GERD (gastroesophageal reflux disease) K21.9
[2023-05-04 10:56] LABS: Partial Thromboplastin Ratio 1.1; Partial Thromboplastin Time 30 Seconds (21-31); Prothrombin Time 11.1 Seconds (9.0-12.0)
[2023-05-04] MEDS ORDERED: APIXABAN 5 MG TABLET PO ONE (11:45)
[2023-05-04 12:16] LABS: Potassium 4.4 mmol/L (3.5-5.1)
[2023-05-04 12:40] LABS: Troponin I High Sensitivity 8.2 pg/ml (0-20)
[2023-05-04 12:50] LABS: Thyroid Stimulating Hormone 1.749 uIu/ml (0.300-4.500)
--- NOTE | 2023-05-04 15:13 | XCELERA ---
[id number] \\[id number]
[2023-05-04] MEDS ORDERED: METOPROLOL TARTRATE 1 MG/ML VIAL IV PRN (17:01)
[2023-05-04] MEDS ORDERED: POLYETHYLENE (MIRALAX) 17 GM PACK PO PRN (17:01)
[2023-05-04] MEDS ORDERED: ACETAMINOPHEN 325 MG TAB PO PRN (17:01)
--- NOTE | 2023-05-04 18:55 | Cardiology Consultation ---
Date of Consultation May 04, 2023 Assessment & Plan (1) Atrial fibrillation, new onset: (2) Atrial fibrillation with RVR: (3) H/O non-ST elevation myocardial infarction (NSTEMI): (4) S/P coronary artery stent placement: Plan 57-year-old man status post remote percutaneous revascularization of coronary artery disease (no remaining occlusive disease) who has been physically active with no symptoms until onset of tachypalpitations in the setting of substantial emotional distress from a recent family tragedy, now presents with new onset atrial fibrillation with rapid ventricular response which has been well- tolerated. Electrolytes unremarkable. Troponin normal. TSH normal. Echocardiogram with low normal systolic function (expected with tachycardia) and no obvious valvular disease. Suspect hyperadrenergic milieu precipitated atrial fibrillation in the absence of major predisposing factors. Although he does have a history of bradycardia, this is likely physiologic from his regular aerobic exercise (walking 5 miles a day), and as such is not an absolute contraindication to initiating beta-lala. Would start low-dose oral beta-lala, oral metoprolol 25 mg every 8 hours to achieve better rate control (goal 80-100 bpm). Would discontinue lisinopril to reduce risk of hypotension with addition of beta-lala. If he has difficulty with bradycardia due to beta-lala, would need to consider antiarrhythmic therapy. Agree with initiating apixaban, since even if he does not require long-term anticoagulation he should be anticoagulated for the next 3 to 4 weeks for elective cardioversion if he does not spontaneously convert in the meantime. Long-term anticoagulation could be decided later, perhaps he could monitor for recurrent atrial fibrillation and only initiate anticoagulation when indicated. No plans for elective cardioversion since his rate is not excessive and there would be risk of thromboembolic event nearly a week after onset of tachypalpitations. Therefore, no need for n.p.o. status overnight. He is at low risk for bleeding, could continue aspirin 81 mg daily for now, but if he remains on apixaban the risk/benefits of dual therapy could be further e valuated. Will inform Dr. Hansen of the patient's current status, the patient likely could be discharged tomorrow on low-dose beta-lala if his rate is controlled, he already has a follow-up visit with Dr. Hansen planned for sometime next week. History of Present Illness Reason for Consultation: new afib, hx CAD/PCI w/ no BB due to bradycardia Requesting Physician: Lin Almaguer MD Attending Physician: Lin Almaguer MD History of Present Illness 57-year-old man with CAD (NSTEMI with PCI OM 2/LAD 2019, no remaining occlusive disease), dyslipidemia, and hypertension, but no history of dysrhythmia, who was admitted earlier today (05/04/2023) with tachypalpitations and found to have atrial fibrillation with rapid ventricular response. He had been followed by Dr. Neumann and Dr. Goodwin but recently transitioned to Dr. Hansen. About a week ago he noted onset of tachypalpitations without chest pain, dyspnea, presyncope, or syncope. He attributed this to a recent family tragedy ( of a grandchild) and the associated stress. He did note a decline in exercise tolerance, at baseline he walks up to 5 miles a day without difficulty. He notes that his usual heart rate is in the 40-50 bpm range at rest. He was comfortable at the time of my evaluation and was no longer noting tachypalpitations (heart rate had improved from initial 150 bpm to 100-110 bpm range) Allergies Allergy/AdvReac Type Severity Reaction Status Date / Time hydrocodone [From Vicodin] AdvReac Intermediate BOWLES, Verified 10/02/22 10:18 GI-UPSET Home Medications Medication Instructions Recorded Confirmed Type aspirin 81 mg tablet,delayed 81 mg PO DAILY #90 tabs 08/02/20 05/04/23 Rx release atorvastatin 40 mg tablet 40 mg PO QAM 30 days #90 tabs 03/07/21 05/04/23 Rx clopidogrel 75 mg tablet 75 mg PO DAILY #90 tabs 03/07/21 05/04/23 Rx lisinopril 5 mg tablet (Zestril) 5 mg PO QAM 30 days #90 tabs 03/07/21 05/04/23 Rx albuterol sulfate 90 mcg/actuation 2 puff inhalation Q4H PRN 09/25/22 05/04/23 History aerosol inhaler (Ventolin HFA) cough/wheeze/shortness of breath fluticasone propionate 50 2 spray intranasal DAILY PRN 09/25/22 05/04/23 History mcg/actuation nasal Congestion spray,suspension nitroglycerin 0.4 mg sublingual 0.4 mg sublingual DIRECTED 05/04/23 05/04/23 History tablet Patient History Medical History (Updated 05/04/23 @ 19:52 by Cody Aponte MD) Hyperglycemia Transaminitis Pneumonia due to 2019 novel coronavirus Acute respiratory failure with hypoxia Asthma Lumbar post-laminectomy syndrome NSTEMI (non-ST elevated myocardial infarction) Dyslipidemia CAD (coronary artery disease) Non-ST elevation (NSTEMI) myocardial infarction GERD (gastroesophageal reflux disease) Chronic back pain GERD (gastroesophageal reflux disease) Hx of fracture of ankle right - Has had 2 surgeries on ankle Lumbar spondylosis Lumbar disc herniation Bilateral sacroiliitis Lumbar radiculitis Spasm of back muscles Olecranon bursitis Surgical History (Updated 05/04/23 @ 19:52 by Cody Aponte MD) S/P coronary artery stent placement (2019) History of back surgery History of ankle surgery right Social History Smoking Status: Never smoker Second Hand Exposure: No; Do You Dip or Chew Tobacco: No; Hx Alcohol Use: Yes Alcohol type: beer Hx Substance Use: No Preferred Language: Iraqi Communication Ability: Effective Visual Impairment: No Limitations Manager Therapy Required: No Beliefs That Will Affect Care: None marital status: Current Living Situation: Spouse Feels Safe at Home: Yes Assistive Devices: Glasses Physical Exam Physical Exam: No distress. Afebrile. BP normotensive. Pulse 104 bpm and irregular. Respirations 18 unlabored. Skin: no ecchymoses or generalized lesions. HEENT: unremarkable. Neck: JVP at the clavicle at 90 degrees, no carotid bruits. Lungs: clear. Cardiac: Irregular/tachycardic rhythm, normal S1-2, no murmur. Abdomen: benign. Extremities: no edema, pulses intact. Neurologic: normal affect and conversation, nonfocal. Results & Data Laboratory Results Troponin values of 9.0 and 8.2. Top normal WBC, hemoglobin 18.8, normal platelet count. Normal electrolytes with a potassium of 4.4 and magnesium of 2.0. BUN 13, creatinine 1.04. BNP 639. TSH 1.749 Diagnostic Findings ECG on admission showed atrial fibrillation with ventricular rate of 128 bpm, low voltage QRS, incomplete right bundle branch block. Compared with 09/25/2022 study, A-fib has replaced sinus rhythm and ventricular rate had increased by 63 bpm. Echocardiogram today showed EF 50 to 55% with mild LVH, mildly dilated RV with normal function, no obvious valvular disease on technically limited Doppler. Echocardiogram 2019: EF 65%, moderate concentric LVF, mildly dilated right ventricle, no significant valvulopathy, top normal RVSP. Chest x-ray today was unremarkable. PG Care Time/CCT Total # of Minutes Spent Total Time Spent with Patient: Total time spent is greater than 50% in coordination of care (as documented) at patient's floor/unit and/or counseling patient: Coding Level of Care Code 57962 IN/OBS CONSULT LVL 4,60M Diagnoses Atrial fibrillation, new onset I48.91 Atrial fibrillation with RVR I48.91 H/O non-ST elevation myocardial infarction (NSTEMI) I25.2 S/P coronary artery stent placement Z95.5
[2023-05-04] MEDS: APIXABAN 5 MG TABLET PO SCH (21:46)
[2023-05-04] MEDS: METOPROLOL TARTRATE 25 MG TAB PO SCH (21:46)
[2023-05-05] MEDS: METOPROLOL TARTRATE 25 MG TAB PO SCH ×3 (06:04→21:19)
[2023-05-05 06:14] LABS: Basophils # (auto) 0.09 K/uL (0.00-0.20); Basophils % (auto) 0.9 %; Eosinophils # (auto) 0.22 K/uL (0.00-0.50); Eosinophils % (auto) 2.1 %; Hematocrit (blood only) 51.4 % (42.0-52.0); Hemoglobin 17.4 g/dl (14.0-18.0); Immature Granulocytes # (auto) 0.04 K/uL (0.01-0.20); Immature Granulocytes % (auto) 0.4 %; Lymphocytes # (auto) 2.94 K/uL (1.20-3.40); Lymphocytes % (auto) 28.1 %; Mean Corpuscular Hemoglobin 30.7 pg (25.0-34.0); Mean Corpuscular Hgb Conc 33.9 g/dL (32.0-36.0); Mean Corpuscular Volume 90.8 fL (80.0-100.0); Monocytes # (auto) 0.91 K/uL (0.11-0.59); Monocytes % (auto) 8.7 %; Neutrophils # (auto) 6.25 K/uL (1.40-6.50); Neutrophils % (auto) 59.8 %; Platelet Count 261 K/uL (130-400); RDW Coefficient of Variation 12.9 % (11.5-14.5); RDW Standard Deviation 42.9 fL (36.4-46.3); Red Blood Count 5.66 M/uL (4.70-6.10); White Blood Count 10.45 K/ul (4.8-10.8)
[2023-05-05 06:32] LABS: BUN Creatinine Ratio 13.8 (10-20); Calcium 8.7 mg/dl (8.6-10.3); Creatinine Clr Calc Pharmacy 87.1 ml/min; Est GFR (African American) 79.4 ml/min; Est GFR (Non-African American) 68.5 ml/min; Potassium 4.2 mmol/L (3.5-5.1)
[2023-05-05] MEDS: APIXABAN 5 MG TABLET PO SCH ×2 (08:49→21:18)
[2023-05-05] MEDS: ASPIRIN 81 MG ECTAB PO SCH (08:49)
[2023-05-05] MEDS: ATORVASTATIN 40 MG TAB PO SCH (08:50)
--- NOTE | 2023-05-05 08:58 | Cardiology Progress Note ---
Date of Service May 05, 2023 Assessment & Plan (1) Atrial fibrillation, new onset: Admission and Anticipated Discharge Date Admission Date: May 04, 2023 Impression: 1. New onset afib with RVR 2. CAD with history of NSTEMI 01/25/2020 s/p PCI of mid OM2 with overlapping drug eluting stents and single drug eluting stent to the mid LAD 2. HLD 3. HTN 4. Echo EF 50-55% (previously 65% in 2019), mild concentric LvH, no wall motion abnormalities, mild right ventricle dilation. Mr. Pederson's heart rate is tachycardic and his pressures soft and he continues to be a bit short of breath and dizzy. I discussed cardioversion and its benefits and risks including stroke, hypertension, hypotension, and other arrhythmia. He is agreeable to proceed. He will need a JORGE prior. I discussed with [facility] [place]. We will add digoxin to day to slow him down further. If he is not improved by the end of today, we'll plan for cardioversion tomorrow. I will place a consult for anesthesia. NPO at midnight His lisinopril was held given his low bps. He appears to be in mild heart failure as well with an elevated bnp. I don't think his blood pressure would tolerate diuretics and his volume status will likely improve with improved perfusion from reduced rate and/or cardioversion to sinus rhythm. I discussed with Mr. Pederson that given his CHADS-VASc of 2 ( for history of W[place] and heart failure) he will likely stay on anticoagulation beyond the month after his cardioversion. If he does not stay in sinus rhythm post cardioversion we could consider ablation down the road especially given his low resting heart rate as this will make antiarrhythmics difficult. Subjective Mr. Pederson continues to feel palpitations. He has been sob and orthopneic over the last two days. His blood pressure is a little on the low side and he does feel a bit lightheaded when he stands up. No chest pain or pressure. No edema. Review of Systems Review of Systems: All systems reviewed & are unremarkable except as noted in HPI & below Physical Exam Constitutional: WD/WN, vitals as above Respiratory: normal respiratory effort, lungs clear to auscultation Skin: no rashes, warm and dry Neurologic: moves all extremities and awake Psychiatric: A+Ox3, euthymic affect Results & Data Vital Signs (Past 12 Hours) Vital Signs Temp Pulse Pulse Resp BP BP Pulse Ox 05/05/23 07:14 100 H 05/05/23 05:57 05/05/23 05:50 81 16 96/65 L 05/05/23 05:37 94 H 17 94/75 L 05/05/23 00:00 36.8 C 89 18 104/66 96 05/04/23 23:26 90 O2 Del Method 05/05/23 07:14 05/05/23 05:57 Room Air 05/05/23 05:50 05/05/23 05:37 05/05/23 00:00 Room Air 05/04/23 23:26
[2023-05-05] MEDS ORDERED: lisinopril 5 MG TAB PO SCH (09:00)
[2023-05-05] MEDS: DIGOXIN 250 MCG in SYRINGE 9 ML IV SCH ×3 (11:41→22:32)
--- NOTE | 2023-05-05 15:21 | Hospitalist Progress Note ---
Date of Service May 05, 2023 Assessment & Plan (1) Atrial fibrillation with RVR: Plan: New onset A-fib with symptoms approximately 5 to 7 days. This started soon after the of his 8-month-old grandson. Patient was seen in consultation by cardiology and was started on oral metoprolol 25 mg p.o. every 8 for rate control Lisinopril was discontinued to reduce the risk of hypotension Patient was started on apixaban for possible cardioversion soon. He will need to be on it for at least 3 to 4 weeks and may be long-term goals. This morning, patient was in mild CHF with fluid overload. This made his CHADsVasc score 2 (for history of NV and heart failure) Cardiology gave him a dose of digoxin today If he does not convert to sinus, plan is to cardiovert him tomorrow N.p.o. postmidnight. Echocardiogram reviewed (2) NSTEMI (non-ST elevated myocardial infarction): Plan: - NSTEMI 2020 and PCI with JUAN x 2 to OM 2, JUAN x 1 to LAD No chest pain at time of admission High sensitive troponin is normal EKG A-fib without acute ischemic change Do not suspect ACS at this time. Continue secondary management and plaavix (3) S/P coronary artery stent placement: (4) GERD (gastroesophageal reflux disease): Plan: No symptoms at this time, no acute management Plan Disposition: PCU DVT prophylaxis: Eliquis Diet: Clears CODE STATUS: Full code Admission and Anticipated Discharge Date Admission Date: May 04, 2023 Subjective Patient has no complaints at this time. Denies chest pain or shortness of breath. Denies palpitations. Says that this morning he felt a little bloated with puffy hands and feet but since then, he says that he "peed out quite a bit" and does not feel as puffy anymore. Review of Systems Review of Systems: All systems reviewed & are unremarkable except as noted in Subjective Physical Exam Physical Exam: General: Awake, conversant Heart: S1, S2/irregular rhythm rapid rate, no murmur rubs or gallops Lungs: Clear to auscultation bilaterally. Normal effort Abdomen: Soft/nontender/nondistended. No hepatosplenomegaly Extremities: No clubbing/cyanosis. No edema Behavior: Appropriate, cooperative Results & Data Results & Data Vital Signs (Past 12 Hours) Vital Signs Pulse Pulse Resp BP BP Pulse Ox O2 Del Method 05/05/23 14:01 110 H 20 117/84 05/05/23 11:41 129 H 05/05/23 10:17 95 H 22 128/61 98 Room Air 05/05/23 07:14 100 H 05/05/23 05:57 Room Air 05/05/23 05:50 81 16 96/65 L 05/05/23 05:37 94 H 17 94/75 L Laboratory Results Abnormal lab results 05/05/23 Range/Units 05:33 Wilkes # (Auto) 0.91 H (0.11-0.59) K/uL PG Care Time/CCT Total # of Minutes Spent Total Time Spent with Patient: Total time spent is greater than 50% in coordination of care (as documented) at patient's floor/unit and/or counseling patient: Coding Level of Care Code 87555 SUB INP/OBS CARE 2/35MIN Diagnoses Atrial fibrillation with RVR I48.91 NSTEMI (non-ST elevated myocardial infarction) I21.4 S/P coronary artery stent placement Z95.5 GERD (gastroesophageal reflux disease) K21.9
[2023-05-05] MEDS ORDERED: DIGOXIN 0.125 MG TAB PO SCH (16:00)
[2023-05-06] MEDS: METOPROLOL TARTRATE 25 MG TAB PO SCH (05:55)
[2023-05-06 07:07] LABS: Basophils # (auto) 0.06 K/uL (0.00-0.20); Basophils % (auto) 0.7 %; Eosinophils # (auto) 0.11 K/uL (0.00-0.50); Eosinophils % (auto) 1.3 %; Hematocrit (blood only) 48.2 % (42.0-52.0); Hemoglobin 16.5 g/dl (14.0-18.0); Immature Granulocytes # (auto) 0.04 K/uL (0.01-0.20); Immature Granulocytes % (auto) 0.5 %; Lymphocytes # (auto) 2.27 K/uL (1.20-3.40); Lymphocytes % (auto) 26.3 %; Mean Corpuscular Hemoglobin 31.2 pg (25.0-34.0); Mean Corpuscular Hgb Conc 34.2 g/dL (32.0-36.0); Mean Corpuscular Volume 91.1 fL (80.0-100.0); Mean Platelet Volume 9.6 fL (9.4-12.4); Monocytes # (auto) 0.93 K/uL (0.11-0.59); Monocytes % (auto) 10.8 %; Neutrophils # (auto) 5.23 K/uL (1.40-6.50); Neutrophils % (auto) 60.4 %; Platelet Count 228 K/uL (130-400); RDW Coefficient of Variation 12.7 % (11.5-14.5); RDW Standard Deviation 42.7 fL (36.4-46.3); Red Blood Count 5.29 M/uL (4.70-6.10); White Blood Count 8.64 K/ul (4.8-10.8)
[2023-05-06 07:30] LABS: Calcium 9.1 mg/dl (8.6-10.3); Creatinine Clr Calc Pharmacy 96.2 ml/min; Est GFR (African American) 89.6 ml/min; Est GFR (Non-African American) 77.3 ml/min; Potassium 4.6 mmol/L (3.5-5.1)
[2023-05-06] MEDS: ASPIRIN 81 MG ECTAB PO SCH (08:43)
[2023-05-06] MEDS: ATORVASTATIN 40 MG TAB PO SCH (08:43)
[2023-05-06] MEDS: APIXABAN 5 MG TABLET PO SCH (08:43)
--- NOTE | 2023-05-06 09:53 | Cardiology Progress Note ---
Date of Service May 06, 2023 Assessment & Plan Admission and Anticipated Discharge Date Admission Date: May 04, 2023 Subjective He feels back to his baseline. He had a good night sleep. Denies any orthopnea. The abdominal distention he previously has resolved. He denies any orthostatic symptoms. He was walking in the hallway and felt well. He has no chest pain or chest pressure. He is unaware of any palpitations or fluttering. Results & Data Vital Signs (Past 12 Hours) Vital Signs Temp Pulse Pulse Resp BP Pulse Ox O2 Del Method 05/06/23 08:17 37.1 C 63 17 101/70 94 Room Air 05/06/23 07:00 60 05/06/23 05:54 58 L 05/06/23 03:32 37 C 63 16 111/75 96 Room Air 05/05/23 23:00 75 05/05/23 22:40 37.1 C 65 18 108/74 94 Room Air 05/05/23 22:32 72 He is awake alert and oriented x 3 is in no acute distress he feels back to his baseline HEENT: Mildly reduced carotid upstrokes Lungs: Faint crackles in the bases bilaterally Heart: Regular rate and rhythm no appreciable murmurs rubs or gallops Extremities: No clubbing cyanosis or edema Psychiatric: His affect appeared appropriate Impression: 1. New onset afib with RVR 2. CAD with history of NSTEMI 01/25/2020 s/p PCI of mid OM2 with overlapping drug eluting stents and single drug eluting stent to the mid LAD 2. HLD 3. HTN 4. Echo EF 50-55% (previously 65% in 2019), mild concentric LvH, no wall motion abnormalities, mild right ventricle dilation. He has converted back to sinus rhythm chemically. He feels better and back to his baseline. With the loss of his atrial kick he definitely had some degree of diastolic heart failure. He describes orthopnea as well as increased abdominal distention. This is something like addressed as an outpatient whether we consider an SGLT2 inhibitor or if he has no blood pressure room Entresto. For now I made the following recommendations: His discharge medications: 1. Aspirin 81 mg daily 2. Eliquis 5 mg twice daily Indefinitely given his [id number] score of at least 2 including coronary artery disease and heart failure 3. Will reduce his metoprolol to 25 mg twice daily rather than 3 times daily given his soft blood pressures 4. Will stop his digoxin 5. I would not restart his lisinopril that he was on prehospital 6. He can restart his atorvastatin He already has an appointment to see me in the next 1 to 2 weeks and will keep that. Unfortunately this may just be related to all the stress that he has go ing on in his life given the loss of her grandson. We did discuss potential triggers. From my standpoint he may discharge home.
--- NOTE | 2023-05-06 10:45 | Discharge Summary ---
Date of Service May 06, 2023 Admission HPI Per Admitting Provider Carlos Pederson is a 57-year-old male with a past medical history of NSTEMI 2019 and PCI with JUAN x 2 to OM 2, JUAN x 1 to LAD; hyperlipidemia, GERD, asthma, and tinnitus who presents concerned about A-fib with no prior history of A-fib. Patient has unclear when it started but thinks the symptoms have been around for 5 days to a week. Patient takes Plavix monotherapy is not on a blood thinner. Takes aspirin/lisinopril/atorvastatin. Patient has not been on a beta-lala due to resting bradycardia. Last echo 12/2019 with EF 60-65% and no regional wall motion abnormalities. Patient received metoprolol 5 mg IV in the ER No chest pain trop is normal Pt endorses palpitations for 5-7 days. 8 month old. Grandson Justin day and has been under a lot of stress. Had a seizure and suddenly. Great stres s since, thought thats what the symptoms were from. 5 days ago heart felt 'floppy like a fish.' shortness of breath has developed and progressively worsened in the last 5 days. HR 100s-158 since the last 5 days. New afib, no history. Was on DAPT, dropped plaavix for asa monotherapy 2 months ago. No hx of warfarin/xarelto/eliquis use. NO nausea, vmoiting. A little loose bowels and had a stomach virus a week ago which seemed to pass. Eating and drinking oK No mediation allergies Did take morning medications today Took two baby aspirin today and yesterday due to the heart feeling NO ches tpain or pressure, just the fluttering feeling. No leg swelling. Does endorse sob much worse when laying flat. New sensation NO history of heart failure, has never been on lasix No tobacco use. No etoh use. NKDA. Full Code Admission Exam Per Admitting Provider General: A&Ox3. NAD. Cooperative. HEENT: Atraumatic, normocephalic. THALIA. Vision/hearing intact Pulm: CTAB A&P. -wheezes, -rales, -rhonchi. Symmetrical chest rise. No increased work of breathing. No respiratory distress. Cardiac: tachycardic, irir. Radial pulses intact and symmetrical. No JVD Abdominal: Nontender, nondistended, soft. BS present. Ext: No LE swelling Principal Diagnosis Rapid atrial fibrillation New onset atrial fibrillation most likely secondary to recent emotional stress and hyperadrenergic phase Discharge Exam General: Awake, conversant Heart: S1, S2/irregular rhythm rapid rate, no murmur rubs or gallops Lungs: Clear to auscultation bilaterally. Normal effort Abdomen: Soft/nontender/nondistended. No hepatosplenomegaly Extremities: No clubbing/cyanosis. No edema Behavior: Appropriate, cooperative Discharge Data Allergies Allergy/AdvReac Type Severity Reaction Status Date / Time hydrocodone [From Vicodin] AdvReac Intermediate BOWLES, Verified 10/02/22 10:18 GI-UPSET Consultations 05/04/23 10:39 ED Decision to Admit Stat 05/04/23 11:14 Consult Cardiology Routine 05/05/23 10:20 Consult Anesthesiology Routine Hospital Course (1) Atrial fibrillation with RVR: New onset A-fib with symptoms approximately 5 to 7 days. This started soon after the of his 8-month-old grandson. Patient was seen in consultation by cardiology and was started on oral metoprolol 25 mg p.o. every 8 for rate control Lisinopril was discontinued to reduce the risk of hypotension Patient was started on apixaban for possible cardioversion soon. He will need to be on it for at least 3 to 4 weeks and may be long-term. The duration will be decided by the chuck tender upon follow-up. The patient is no more fluid overloaded. [id number] score is 1 (coronary artery disease) or 2 (may be CHF since the patient appeared mildly fluid overloaded on 05/05) Cardiology gave him a dose of digoxin on 05/05 In response, he cardioverted overnight to sinus rhythm Plan is to discharge him on Eliquis, metoprolol 25 mg twice daily. Discontinue lisinopril. Discontinue digoxin. Plavix will be discontinued. He will be discharged on dual agents including aspirin and Eliquis. he will follow-up with chuck tender in 1 week. (2) NSTEMI (non-ST elevated myocardial infarction): - NSTEMI 2020 and PCI with JUAN x 2 to OM 2, JUAN x 1 to LAD No chest pain at time of admission High sensitive troponin is normal EKG A-fib without acute ischemic change Do not suspect ACS at this time. Continue secondary management. Plavix discontinued. Continue aspirin. (3) S/P coronary artery stent placement: (4) GERD (gastroesophageal reflux disease): No symptoms at this time, no acute management Plan Discharge Total Time Total Time Spent Total Time Spent (In Minutes): 35 Discharge Plan Discharge Items Patient Disposition: Home - Self-Care Reason For Visit: AFIB RVR, NEW ONSET. +ORTHOPNEA Discharge Diagnosis: Rapid Atrial Fibrillation Activity: Resume your previous activity Non-emergency contact: Primary Care Provider Call non-emergency contact if: you have any medication questions and your symptoms worsen Follow-up/Referrals: Liya Jaquez PA-C [Primary Care Provider] - 05/12/23 1:30 pm Diet: Heart Healthy Addtl Attending Provider Instructions: - Advised to follow-up with PCP in 1 week - Advised to follow-up with chuck tender in 1 week Pending Studies at Discharge: No Stand-Alone Forms: My [employer] Medications and DC Order Prescriptions: New Eliquis 5 mg Tablet 5 mg PO BID 21 Days Qty: 42 0RF metoprolol tartrate 25 mg Tablet 25 mg PO BID 30 Days Qty: 60 0RF Continued atorvastatin 40 mg tablet 40 mg PO QAM 30 Days Qty: 90 3RF aspirin 81 mg tablet,delayed release (DR/EC) 81 mg PO DAILY Qty: 90 3RF Rx Instructions: unable to verify with pt/pharmacy 05/04/23 fluticasone propionate 50 mcg/actuation spray,suspension 2 spray INTRANASAL DAILY PRN (Reason: Congestion) albuterol sulfate [Ventolin HFA] 90 mcg/actuation HFA aerosol inhaler 2 puff inhalation Q4H PRN (Reason: cough/wheeze/shortness of breath) nitroglycerin 0.4 mg tablet, sublingual 0.4 mg sublingual DIRECTED Discontinued lisinopril [Zestril] 5 mg tablet 5 mg PO QAM 30 Days Qty: 90 3RF clopidogrel 75 mg tablet 75 mg PO DAILY Qty: 90 3RF Rx Instructions: 30 september 12 Discharge Orders: Discharge Order (Routine); Ordered 05/06/23 Ordered By: Lin Almaguer Admission Data Admit Date/Time: 05/04/23 11:13 Attending Provider: Lin Almaguer Admit Provider: Mat Garrett Primary Care Provider: Liya Jaquez Other Providers: Mat Garrett; Booker Hansen; Maty Dixon; Darcie Pollard; Eliana Subramanian; Dorota He; Carlos Plata; Cedric Covington; Milan Rivera; Jose Malagon; Lora Malagon; José Nunez; Rachana Mcleod; Shankar So; Pineda Soliz; Darvin Rodriguez; David Dominguez; Janine Bledsoe; Benny Santos; Thu Santos; Yousif Valera; Iesha Kuhn; Marvel Sherman; Leelee Gutierrez; Zuleima Angeles; Jorge Vital; Lara Mix A; Erica Krishna A; Aleyda Tavares; Jane Correia; Arron Correia V; Keon Tanner; Darcie Rivera; Sang Mora; Debi Lemos; Arron Munguia; John Bledsoe; Duke Portillo; Laly Ross; Amaris Preston; Arron Huff; Wero Vázquez.; Maile Danielson.; Hector Wright.; Mayela Jensen; Kiera David; Felton Gilbert; Sree Dominguez; Akila Baxter; Madi Lal; Diogo Morin; Haseeb Balbuena; Carlos Chino Jr; Johana Regan; Mima Latif A.; Sabrina Shearer; Jorge Heart; Brianna Andersen; Jose Tracy; Clif Sheehan I.; Chana Perry S.; Mima Kimbrough A.; Booker Bernardo; Joseph Russo; Johnathon Charles; Jose Luis Barbosa V.; Yury Palacios; Carlene Donahue; Alcira Palma; Toma Brown; Clara Caruso; Barb Sweeney Other Interventions: Discharge Summary Assessment (RN) Last Done: 05/06/23 11:15 Coding Level of Care Code 59690 INP/OBS DISCH >30 MIN Diagnoses Atrial fibrillation with RVR I48.91 NSTEMI (non-ST elevated myocardial infarction) I21.4 S/P coronary artery stent placement Z95.5 GERD (gastroesophageal reflux disease) K21.9
[2023-05-06] MEDS ORDERED: DIGOXIN 0.125 MG TAB PO SCH (16:00)
[2023-05-06] MEDS ORDERED: METOPROLOL TARTRATE 25 MG TAB PO SCH (21:00)
== END 2023-05-06 11:49 | disposition home or self-care (01) ==
LOC: ED 08:44 → EDINP 08:44 → SUATTDRO 11:13 → 2E 17:02